=== PATIENT | female | born 1980 | race Caucasian/White ===

== ENCOUNTER 2019-05-17 12:12 | Emergency (ER) | payer MEDICARE, MEDICAID ==
[~2019-05-17] VITALS: Ht 165.1 cm; Wt 86.0 kg
--- NOTE | 2019-05-17 12:30 | NUR ---
Pt taken from triage to room 22 by Adela Baugh.
[2019-05-17] MEDS ORDERED: IBUP-1986 PO (13:10)
[2019-05-17] MEDS ORDERED: TRAM50TA2 PO (13:10)
--- NOTE | 2019-05-17 13:23 | NUR ---
LAB AT . PT TALKING WITH MOM AT
[2019-05-17 13:35] LABS: BASOPHILS % (AUTO) 0.5 % (0-1); EOSINOPHILS % (AUTO) 0.6 % (0-6); HEMATOCRIT 41.8 % (35.0-45.0); HEMOGLOBIN 13.9 g/dl (12.0-16.0); LYMPHOCYTES # (AUTO) 1.6 X10'3 (1.1-4.8); LYMPHOCYTES % (AUTO) 19.3 % (21-51); MEAN CORPUSCULAR HEMOGLOBIN 30.8 PG (27.0-31.0); MEAN CORPUSCULAR HGB CONC 33.3 g/dL (33.0-36.5); MEAN CORPUSCULAR VOLUME 92.4 FL (78-98); MEAN PLATELET VOLUME 9.3 FL (7.4-10.4); MONOCYTES # (AUTO) 0.6 X10'3 (0-0.9); MONOCYTES % (AUTO) 7.3 % (2-12); NEUTROPHILS % (AUTO) 72.3 % (42-75); PLATELET COUNT 243 X10'3 (140-440); RED BLOOD COUNT 4.52 X10'6 (4.20-5.60); RED CELL DISTRIBUTION WIDTH 14.7 % (11.5-14.5); WHITE BLOOD COUNT 8.2 X10'3 (4.5-11.0)
[2019-05-17 13:39] LABS: CLARITY,URINE SLIGHTLY CLOUDY (Clear); COLOR,URINE STRAW (Yellow); GLUCOSE, URINE NEGATIVE (Neg); KETONES,URINE NEGATIVE (Neg); LEUKOCYTE ESTERASE ,URINE TRACE (Neg); NITRITES, URINE NEGATIVE (Neg); OCCULT BLOOD,URINE NEGATIVE (Neg); PROTEIN,URINE NEGATIVE (Neg); URINE HCG NEGATIVE (NEG); UROBILINOGEN,URINE 0.2 E.U/dL (0.2-1.0)
[2019-05-17 13:40] LABS: UA COLLECTION TYPE CLN CATCH MIDSTREAM
[2019-05-17 13:43] LABS: URINE AMPHETAMINE SCREEN NEGATIVE (Neg); URINE BARBITUATE SCREEN NEGATIVE (Neg); URINE BENZODIAZEPINES SCREEN NEGATIVE (Neg); URINE CANNABINOID SCREEN NEGATIVE (Neg); URINE COCAINE SCREEN NEGATIVE (Neg); URINE METHADONE SCREEN NEGATIVE (Neg); URINE OPIATE SCREEN NEGATIVE (Neg); URINE PHENCYCLIDINE SCREEN NEGATIVE (Neg)
[2019-05-17 13:50] LABS: ALANINE AMINOTRANSFERASE 14 U/L (12-78); ALBUMIN 3.8 G/DL (3.4-5.0); ALBUMIN/GLOBULIN RATIO 1.1 (1.1-1.5); ALKALINE PHOSPHATASE 78 IU/L (46-116); ANION GAP 9 (8-16); ASPARTATE AMINO TRANSFERASE 4 U/L (10-37); BILIRUBIN,TOTAL 0.2 MG/DL (0.1-1.0); BLOOD UREA NITROGEN 11 MG/DL (7-18); BUN/CREATININE RATIO 10.9 (6.6-38.0); CALCIUM 9.1 MG/DL (8.5-10.1); CHLORIDE 109 MMOL/L (99-107); CREATININE 1.01 MG/DL (0.40-0.90); GLUCOSE 91 MG/DL (70-104); POTASSIUM 3.7 MMOL/L (3.5-5.1); SODIUM 141 MMOL/L (135-145); TOTAL CARBON DIOXIDE 23.4 MMOL/L (24-32); TOTAL PROTEIN 7.3 G/DL (6.4-8.2); eGFR 61 ML/MIN
[2019-05-17 13:54] LABS: SQUAMOUS EPITHELIAL CELL,UR MANY /LPF (FEW)
[2019-05-17 13:55] LABS: BACTERIA,URINE 2+ /HPF (Neg); RBC,URINE 0-2 /HPF (0-2); WBC,URINE 0-4 /HPF (0-4)
[2019-05-17 13:59] LABS: ACETAMINOPHEN < 2.0 UG/ML (10-30); ETHANOL < 0.010 GM/DL (0.0-0.010)
[2019-05-17] MEDS ORDERED: RISP4TAB2 PO (14:00)
[2019-05-17] MEDS ORDERED: VENL150T3 PO (14:02)
[2019-05-17] MEDS ORDERED: TOP100T PO (14:02)
[2019-05-17] MEDS ORDERED: BENZ0.5T43 PO (14:05)
[2019-05-17] MEDS ORDERED: OMEP40CA13 PO (14:05)
[2019-05-17] MEDS ORDERED: MIRT30TA PO (14:05)
[2019-05-17] MEDS ORDERED: [UNRECOGNIZED DRUG - CODE] (14:07)
[2019-05-17] MEDS ORDERED: CLON-527 PO (14:07)
[2019-05-17] MEDS ORDERED: nicotine 21mg patch - 24 hr TD ONE (15:30)
--- NOTE | 2019-05-17 16:45 | NUR ---
Report received from EHSAN Kate. All questions answered. I agree with previously documented assessment. Patient resting comfortably in bed. I will assume care of patient at this time.
--- NOTE | 2019-05-17 18:30 | NUR ---
rcvd report from EHSAN Patterson, assumed care, pt is in bed supine, mother at bedside, no s/s of distress observed
--- NOTE | 2019-05-17 19:30 | NUR ---
pt is in bed, supine, mom still at bedside, no s/s of distress observed, will continue to monitor
--- NOTE | 2019-05-17 19:49 | NUR ---
spoke to Angi [facility], went over chart and pt hx with her she will visit pt in a few mins
--- NOTE | 2019-05-17 19:50 | NUR ---
spoke to ANÍBAL Salas re med clearance, she will request from
--- NOTE | 2019-05-17 20:30 | NUR ---
updated on wait for eval from [facility]
[2019-05-17] MEDS ORDERED: mirtazapine 15mg tablet PO SCH (21:00)
[2019-05-17] MEDS ORDERED: risperiDONE 2mg tablet PO SCH (21:00)
[2019-05-17] MEDS ORDERED: traMADol 50MG tablet PO ONE (21:00)
[2019-05-17] MEDS ORDERED: TASIMELTEON 20 MG PO SCH (21:00)
--- NOTE | 2019-05-17 21:00 | NUR ---
Christina from [facility] speaking to pt and her mother, no s/s of distress observed
--- NOTE | 2019-05-17 21:29 | NUR ---
pt still quietly talking to Christina from [facility], Mom present
--- NOTE | 2019-05-17 21:40 | NUR ---
spoke to herminia, she is going to keep the pt on 1798. has plans to dc pt home in the am, the patient continues to hear voices, they are getting louder, they are not telling her to do anything at this time, she does still want to harm herself
[2019-05-17] MEDS: topiramate 100mg tablet PO SCH (21:47)
[2019-05-17] MEDS: clonazePAM 1mg tablet PO SCH (21:47)
[2019-05-17] MEDS: benztropine 1mg tablet PO SCH (21:47)
--- NOTE | 2019-05-17 22:30 | NUR ---
pt is in bed, supine, no s/s of distress, regular breathing present, appears ti b Addendum: 05/18/19 at 0108 by [email or web address] appears to be sleeping
--- NOTE | 2019-05-17 22:33 | NUR ---
pt is sleeping
--- NOTE | 2019-05-17 23:34 | NUR ---
pt is asleep, regular, spontaneous breathing present
--- NOTE | 2019-05-18 01:40 | NUR ---
pt is in bed, supine, no s/s of distress observed
--- NOTE | 2019-05-18 02:32 | NUR ---
pt is in bed. reqular breathing present, no s/s of distress observed
--- NOTE | 2019-05-18 03:01 | NUR ---
pt is in bed on right side, eyes closed, no s/s of distress will continue to monitor
--- NOTE | 2019-05-18 04:00 | NUR ---
pt eating she is calm and happy no s/s of distress
--- NOTE | 2019-05-18 05:02 | NUR ---
pt is in bed on her right side, eyes closed , no s/s of distress
[2019-05-18 05:07] VITALS: BP 94/66
--- NOTE | 2019-05-18 05:49 | NUR ---
pt is in bed on right side, no s/s of distress, eyes closed appears to be asleep
[2019-05-18] MEDS ORDERED: pantoprazole 40mg Tablet.DR PO SCH (07:30)
[2019-05-18] MEDS ORDERED: venlafaxine XR 75mg capsule (Q24H) PO SCH (08:00)
[2019-05-18] MEDS: clonazePAM 1mg tablet PO SCH (08:18)
[2019-05-18] MEDS: benztropine 1mg tablet PO SCH (08:18)
[2019-05-18] MEDS: topiramate 100mg tablet PO SCH (08:22)
[2019-05-18] MEDS ORDERED: traMADol 50MG tablet PO PRN (09:15)
== END 2019-05-18 12:11 | disposition home or self-care (01) ==
LOC: ER 12:13
DX: R45.851 Suicidal ideations (principal); F41.9 Anxiety disorder, unspecified; F32.9 Major depressive disorder, single episode, unspecified; F20.9 Schizophrenia, unspecified; F17.200 Nicotine dependence, unspecified, uncomplicated; Z98.890 Other specified postprocedural states; Z88.5 Allergy status to narcotic agent; Z88.8 Allergy status to other drugs, medicaments and biological substances; Z79.899 Other long term (current) drug therapy
CPT/HCPCS: 36415; 80053; 80305; 80320; 80329; 81001; 81025; 84443; 85025; 99284; 99285

== ENCOUNTER 2019-05-23 12:01 | Emergency (ER) | payer MEDICARE, MEDICAID ==
[~2019-05-23] VITALS: Ht 165.1 cm; Wt 85.9 kg
[~2019-05-23 12:01] MED LIST: BENZ0.5T43 PO; CLON-527 PO; IBUP-1986 PO; MIRT30TA PO; OMEP40CA13 PO; RISP4TAB2 PO; TOP100T PO; TRAM50TA2 PO; VENL150T3 PO; [UNRECOGNIZED DRUG - CODE]
[2019-05-23 12:37] LABS: URINE HCG NEGATIVE (NEG)
[2019-05-23 12:38] LABS: BASOPHILS # (AUTO) 0.1 X10'3 (0-0.2); BASOPHILS % (AUTO) 0.7 % (0-1); EOSINOPHILS % (AUTO) 0.5 % (0-6); HEMATOCRIT 44.3 % (35.0-45.0); HEMOGLOBIN 14.6 g/dl (12.0-16.0); LYMPHOCYTES # (AUTO) 1.3 X10'3 (1.1-4.8); LYMPHOCYTES % (AUTO) 15.3 % (21-51); MEAN CORPUSCULAR HEMOGLOBIN 30.3 PG (27.0-31.0); MEAN CORPUSCULAR HGB CONC 32.9 g/dL (33.0-36.5); MEAN CORPUSCULAR VOLUME 92.3 FL (78-98); MEAN PLATELET VOLUME 9.3 FL (7.4-10.4); MONOCYTES # (AUTO) 0.5 X10'3 (0-0.9); MONOCYTES % (AUTO) 5.3 % (2-12); NEUTROPHILS # (AUTO) 6.8 X10'3 (1.8-7.7); NEUTROPHILS % (AUTO) 78.2 % (42-75); PLATELET COUNT 248 X10'3 (140-440); RED CELL DISTRIBUTION WIDTH 14.5 % (11.5-14.5); WHITE BLOOD COUNT 8.7 X10'3 (4.5-11.0)
[2019-05-23 12:43] LABS: URINE AMPHETAMINE SCREEN NEGATIVE (Neg); URINE BARBITUATE SCREEN NEGATIVE (Neg); URINE BENZODIAZEPINES SCREEN NEGATIVE (Neg); URINE CANNABINOID SCREEN NEGATIVE (Neg); URINE COCAINE SCREEN NEGATIVE (Neg); URINE METHADONE SCREEN NEGATIVE (Neg); URINE OPIATE SCREEN NEGATIVE (Neg); URINE PHENCYCLIDINE SCREEN NEGATIVE (Neg)
[2019-05-23 12:47] LABS: ANION GAP 11 (8-16); BLOOD UREA NITROGEN 10 MG/DL (7-18); BUN/CREATININE RATIO 9.8 (6.6-38.0); CHLORIDE 107 MMOL/L (99-107); CREATININE 1.02 MG/DL (0.40-0.90); GLUCOSE 92 MG/DL (70-104); POTASSIUM 3.7 MMOL/L (3.5-5.1); SODIUM 142 MMOL/L (135-145); TOTAL CARBON DIOXIDE 24.1 MMOL/L (24-32)
[2019-05-23 12:48] LABS: ALANINE AMINOTRANSFERASE 17 U/L (12-78); ALBUMIN 4.1 G/DL (3.4-5.0); ALBUMIN/GLOBULIN RATIO 1.2 (1.1-1.5); ALKALINE PHOSPHATASE 87 IU/L (46-116); ASPARTATE AMINO TRANSFERASE 10 U/L (10-37); BILIRUBIN,TOTAL 0.3 MG/DL (0.1-1.0); ETHANOL < 0.010 GM/DL (0.0-0.010); TOTAL PROTEIN 7.6 G/DL (6.4-8.2); eGFR 60 ML/MIN
--- NOTE | 2019-05-23 13:12 | NUR ---
assumed care of pt, pt amb with steady gait from [facility] waiting room to overflow
--- NOTE | 2019-05-23 13:32 | NUR ---
pt is 38 yo female BIB mother from home, pt c/o "voices telling me to kill myself...to shoot myself", mother said there are guns in the house "but no shells and they are in the closet in my room and the door is locked", pt is calm and cooperative, resp even and unlabored, skin p/w/d, sees Lillie Wing, therapist, twice a week and Dr Melendez is the psychiatrist from [facility]. Pt denies homicidal thoughts/plan. Mother said pt has been crying nonstop today, pt was here last overnight and dc'd home the next day
--- NOTE | 2019-05-23 13:51 | NUR ---
gave pt sandwich, yogurt, blessing crackers and pitcher of ice water, mother is at bedside, packet has been faxed to [facility], called to confirm they have received packet, pt is waiting to be evaluated by clinician
--- NOTE | 2019-05-23 13:56 | NUR ---
pt amb with steady gait to restroom
--- NOTE | 2019-05-23 14:07 | NUR ---
Clinician bj burton at bedside to evaluate pt
--- NOTE | 2019-05-23 14:37 | NUR ---
pt placed on 5150, waiting for placement, med rec done,
[2019-05-23] MEDS ORDERED: FURO-150 PO (15:09)
[2019-05-23] MEDS ORDERED: POTA10TA15 PO (15:09)
[2019-05-23] MEDS ORDERED: clonazePAM 1mg tablet PO PRN (15:10)
[2019-05-23] MEDS ORDERED: traMADol 50MG tablet PO PRN (15:10)
--- NOTE | 2019-05-23 15:10 | NUR ---
Assumed care of this patient from EHSAN Ortega.. Patient resting with mother at bedside. no signs of distress. patient affect calm, answering questions appropriately.
[2019-05-23] MEDS ORDERED: FURO40TA4 PO (15:32)
[2019-05-23] MEDS ORDERED: ibuprofen tablet 400 MG TABLET PO PRN (16:00)
--- NOTE | 2019-05-23 16:16 | NUR ---
Patient's mom Elza left her number and states she would like us to call if Estela is transferred. number is [phone].
--- NOTE | 2019-05-23 18:30 | NUR ---
Patient awake sitting in bed, no behavior problem noted.
[2019-05-23] MEDS ORDERED: topiramate 100mg tablet PO SCH (20:00)
[2019-05-23] MEDS ORDERED: benztropine 1mg tablet PO SCH (20:00)
--- NOTE | 2019-05-23 20:01 | NUR ---
Patient up to the bathroom for toilet needs.
[2019-05-23] MEDS ORDERED: mirtazapine 15mg tablet PO SCH (21:00)
[2019-05-23] MEDS ORDERED: risperiDONE 2mg tablet PO SCH (21:00)
--- NOTE | 2019-05-23 21:20 | NUR ---
Patient resting in bed at this time.
[2019-05-23 22:42] VITALS: BP 103/73
[2019-05-24] MEDS ORDERED: venlafaxine XR 75mg capsule (Q24H) PO SCH (08:00)
[2019-05-24] MEDS ORDERED: pantoprazole 40mg Tablet.DR PO SCH (08:00)
== END 2019-05-23 22:47 | disposition home or self-care (01) ==
LOC: ER 12:01
DX: F32.9 Major depressive disorder, single episode, unspecified (principal); F41.9 Anxiety disorder, unspecified; F20.9 Schizophrenia, unspecified; Z87.891 Personal history of nicotine dependence; Z88.5 Allergy status to narcotic agent; Z88.8 Allergy status to other drugs, medicaments and biological substances; Z79.899 Other long term (current) drug therapy
CPT/HCPCS: 36415; 80053; 80305; 80320; 81025; 85025; 99284

== ENCOUNTER 2019-05-23 22:22 | Inpatient (IN) | payer MEDICARE, MEDICAID ==
[~2019-05-23] VITALS: Ht 165.1 cm; Wt 85.6 kg
[~2019-05-23 22:22] MED LIST changes: +FURO-150 PO; +FURO40TA4 PO; +POTA10TA15 PO
[2019-05-23] MEDS ORDERED: hydrOXYzine 25 MG tablet PO PRN (22:30)
[2019-05-23] MEDS ORDERED: magnesium hydroxide 30ml (MOM) UD suspension PO PRN (22:30)
[2019-05-23] MEDS ORDERED: LORazepam 1 MG tablet PO PRN (22:30)
[2019-05-23] MEDS ORDERED: acetaminophen 325mg tablet PO PRN ×2 (22:30)
[2019-05-23] MEDS ORDERED: mag hydrox/Alum hydrox/simeth 30ml oral suspension PO PRN (22:30)
[2019-05-23] MEDS ORDERED: loperamide 2mg capsule PO PRN (22:30)
[2019-05-23 23:43] VITALS: BP 99/69
[2019-05-23] MEDS ORDERED: NICOTINE POLACRILEX 2 MG LOZENGE BC PRN (23:45)
--- NOTE | 2019-05-24 02:17 | NUR ---
ADMISSION NOTE: 38 year old female that self presented to ER due to suicidal thoughts with plan to "blow my head off with a gun", and per 5150 report she does have access to firearms. Pt reports that "David (the voice in her head) has taken over and she cannot take it anymore, pt endorses command hallucinations that tell her to do things as well. She arrived on the unit at 2245 from ER overflow, escorted by Nabil MEYER, pt was ambulatory, she was escorted to the showers for safety check and skin check that was completed by myself and Leah MOSER. Pt cooperative with admission process. Pt lives with Mother and teenage son in [place]. 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 DR Melendez currently manages her psych meds. Pt has had previous psych admit but states it has been years. Denies any previous suicide attempts and she states she does not currently feel suicidal.
[2019-05-24] MEDS: traMADol 50MG tablet PO PRN ×2 (06:11→13:56)
[2019-05-24 07:57] LABS: HEMOGLOBIN A1C 5.1 % (4.5-6.2)
[2019-05-24 08:00] VITALS: BP 104/80
[2019-05-24 08:06] LABS: CHOL/HDL RATIO 2.2 (0.00-4.99); CHOLESTEROL 140 MG/DL (0-200); HDL CHOLESTEROL 64 MG/DL (35-60); LDL CHOLESTEROL 49 MG/DL (50-100); TRIGLYCERIDES 81 MG/DL (20-135)
[2019-05-24] MEDS: nicotine 7mg patch - 24hr TD SCH (08:43)
[2019-05-24] MEDS: benztropine 1mg tablet PO SCH ×2 (08:45→20:43)
[2019-05-24] MEDS: venlafaxine XR 75mg capsule (Q24H) PO SCH (08:45)
[2019-05-24] MEDS: potassium chloride 10mEq ER tablet PO SCH (08:45)
[2019-05-24] MEDS: pantoprazole 40mg Tablet.DR PO SCH (08:45)
[2019-05-24] MEDS: ibuprofen tablet 400 MG TABLET PO SCH ×2 (08:45→16:14)
[2019-05-24] MEDS: topiramate 100mg tablet PO SCH ×2 (08:46→20:44)
[2019-05-24] MEDS: furosemide 40mg tablet PO SCH (08:46)
[2019-05-24] MEDS: clonazePAM 1mg tablet PO PRN (12:58)
--- NOTE | 2019-05-24 14:22 | NUR ---
Malnutrition consult re: 17 lb wt loss d/t depression. Current documented wt is stable with only documented wt hx of 86 kg taken 05/18/19. Pt currently on a regular diet with 100% PO intake meeting nutrient needs. No edema or decrease in muscle strength. Pt currently lacks a minimum of two criteria for malnutrition. Will continue to follow. Addendum: 05/24/19 at [address] Amended: Links added.
--- NOTE | 2019-05-24 14:23 | NUR ---
Progress notes: Estela Cavazos Pt lives with Mother and teenage son in [place]. 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 DR Melendez currently manages her psych meds. Pt has had previous psych admit but states it has been years. Denies any previous suicide attempts and she states she does not currently feel suicidal. Legal Hold: 5150 as DTS Report received from: Leticia SPANGLER Why they are here: What happened this shift: Client was in bed to start the shift, Client admits to hearing voices and the name of her voice is, "David". She states that voice is a command hallucination which tells her to harm herself. Also, voice attempts to control her thoughts by telling her, "do not take medications". Took a prn of Klonopin around 1350 hours for, "agitation". Client attended group activities and was compliant with all aspects of her care. S/I H/I: denies ADLS: conducts by self Group attendance: yes Were meds taken: yes Any S/e noted: no Mental status exam: Appearance: neat, appropriate Eye contact: direct Behavior: appropriate, internally preoccupied. Speech: m normal, soft Mood: Depressed Affect: flat Thought process: linear Thought content: Cognition: Insight: Fair Judgement: Fair Interventions: Prn use: Klonopin Therapeutic Interventions: Continued therapeutic support and medication management needed to provide stabilization. 1:1 assessment with patient, provide active listening and therapeutic milieu. Justification of Continued Inpatient Treatment: Pt. unable to formulate a viable plan for food, fci and clothing. Currently she is reporting S/I. Continued therapeutic support and medication management needed to provide stabilization, prevent decompensation, improve coping mechanisms decreasing risk to patient and re-admittance Restraints/seclusion/emergency medication: N/A
[2019-05-24 20:00] VITALS: BP 108/72
[2019-05-24] MEDS: mirtazapine 15mg tablet PO SCH (20:45)
[2019-05-24] MEDS: TASIMELTEON 20 MG PO SCH (21:00)
[2019-05-24] MEDS ORDERED: mirtazapine 15mg tablet PO SCH (21:00)
[2019-05-24] MEDS: risperiDONE 2mg tablet PO SCH (21:35)
--- NOTE | 2019-05-25 02:47 | NUR ---
NURSING PROGRESS NOTE: Legal Hold: 5150 as DTS Report received from ANÍBAL Kelly via [facility] Why they are here: Pt lives with Mother and teenage son in [place]. 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 DR Melendez currently manages her psych meds. Pt has had previous psych admit but states it has been years. Denies any previous suicide attempts and she states she does not currently feel suicidal. What happened this shift: C Pt in room at start and for the entirety of the shift. She used the phone a couple times to call family. Pt continues to have vaque SI and hallucinations but is reserved about talking about either. AH lessened by headphones (music) and reading. While she enjoys groups, pt states thd voice makes it difficult to communicate in the group setting. Pt is cooperative with care, and retired to sleep shortly after medications administration. Initially refusing certain medications per the direction of her AH, but was able to be redirected and took all medications. S/I H/I: + SI, no plan A/V H: + AH, Command: Voice is "David" who makes derogatory comments and tells her to kill herself or not take her meds ADLS: Independent Group attendance: N/A Were meds taken:Yes Any S/e noted: none reported nor observed Mental status exam: Appearance: Neat, appropriate. Hair is loose, wearing unit green scrubs and nonskid socks. Eye contact: Direct Behavior: Isolated to room Speech: Normal rate, soft tone Mood: Depressed 8/10 Affect: Flat Thought process: Linear, blocking due to internal stimuli Thought content: Voices Cognition: Insight: Fair Judgement: Fair Interventions: PRN use: None Therapeutic Interventions: Continued therapeutic support and medication management needed to provide stabilization. 1:1 assessment with patient, provide active listening and therapeutic milieu. Restraints/seclusion/emergency medication: N/A Justification of Continued Inpatient Treatment: Currently she is reporting S/I and command hallucinations. Continued therapeutic support and medication management needed to provide stabilization, prevent decompensation, improve coping mechanisms decreasing risk to patient and re-admittance.
[2019-05-25] MEDS: nicotine 7mg patch - 24hr TD SCH (07:43)
[2019-05-25] MEDS: furosemide 40mg tablet PO SCH (07:43)
[2019-05-25] MEDS: ibuprofen tablet 400 MG TABLET PO SCH ×3 (07:43→15:23)
[2019-05-25] MEDS: topiramate 100mg tablet PO SCH ×2 (07:43→21:09)
[2019-05-25] MEDS: venlafaxine XR 75mg capsule (Q24H) PO SCH (07:43)
[2019-05-25] MEDS: potassium chloride 10mEq ER tablet PO SCH (07:43)
[2019-05-25] MEDS: pantoprazole 40mg Tablet.DR PO SCH (07:44)
[2019-05-25] MEDS: benztropine 1mg tablet PO SCH ×2 (07:44→21:09)
[2019-05-25] MEDS: traMADol 50MG tablet PO PRN ×2 (07:52→16:08)
[2019-05-25 08:00] VITALS: BP 113/74
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
[2019-05-25] MEDS: clonazePAM 1mg tablet PO PRN (15:23)
[2019-05-25 19:58] VITALS: BP 109/81
[2019-05-25] MEDS: TASIMELTEON 20 MG PO SCH (21:00)
[2019-05-25] MEDS: mirtazapine 15mg tablet PO SCH (21:08)
[2019-05-25] MEDS: risperiDONE 2mg tablet PO SCH (21:08)
--- NOTE | 2019-05-26 02:27 | NUR ---
NURSING PROGRESS NOTE: Legal Hold: 5150 as DTS Report received from ANÍBAL Kelly via [facility] Why they are here: Pt lives with Mother and teenage son in [place]. 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 DR Melendez currently manages her psych meds. Pt has had previous psych admit but states it has been years. Denies any previous suicide attempts and she states she does not currently feel suicidal. What happened this shift: Pt in room majority of shift, talking on the phone to her family. Later before bed, pt was enjoying a movie in the TV room. Pt states she is feeling worse today because the voice is stronger. Depression and anxiety are rated 8/10, and the voice continues to make derogatory and command statements. RN and pt explored the topic of ECT as treatment, as it was brought up with the psychiatrist today. Pt states she is not resistive to this intervention, just wanting to keep trying talk therapy before approaching a more invasive line of treatment. Pt compliant with medications and retired to bed shortly after administration. S/I H/I: + SI, no plan A/V H: + AH, Command: Voice is "David" who makes derogatory comments and tells her to kill herself ADLS: Independent Group attendance: N/A Were meds taken:Yes Any S/e noted: none reported nor observed Mental status exam: Appearance: Neat, appropriate. Hair is loose, wearing unit green scrubs and nonskid socks. Eye contact: Direct Behavior: Talking on the phone, watching a movie Speech: Normal rate, soft tone Mood: Depressed and Anxious 8/10 Affect: Flat Thought process: Linear, blocking due to internal stimuli Thought content: Voices Cognition: Insight: Fair Judgement: Fair Interventions: PRN use: MOM Therapeutic Interventions: Continued therapeutic support and medication management needed to provide stabilization. 1:1 assessment with patient, provide active listening and therapeutic milieu. Restraints/seclusion/emergency medication: N/A Justification of Continued Inpatient Treatment: Currently she is reporting S/I and command hallucinations. Continued therapeutic support and medication management needed to provide stabilization, prevent decompensation, improve coping mechanisms decreasing risk to patient and re-admittance.
[2019-05-26] MEDS: traMADol 50MG tablet PO PRN ×2 (06:04→15:35)
[2019-05-26] MEDS: potassium chloride 10mEq ER tablet PO SCH (07:17)
[2019-05-26] MEDS: furosemide 40mg tablet PO SCH (07:17)
[2019-05-26] MEDS: topiramate 100mg tablet PO SCH ×2 (07:17→20:50)
[2019-05-26] MEDS: venlafaxine XR 75mg capsule (Q24H) PO SCH (07:17)
[2019-05-26] MEDS: benztropine 1mg tablet PO SCH ×2 (07:17→20:52)
[2019-05-26] MEDS: pantoprazole 40mg Tablet.DR PO SCH (07:17)
[2019-05-26 07:32] VITALS: BP 91/55
[2019-05-26] MEDS: nicotine 7mg patch - 24hr TD SCH (08:52)
[2019-05-26] MEDS: ibuprofen tablet 400 MG TABLET PO SCH ×3 (08:55→15:35)
--- NOTE | 2019-05-26 17:52 | NUR ---
NURSING PROGRESS NOTE: Legal Hold: 5150 as DTS Report received from ANÍBAL Kelly via [facility] Why they are here: Pt lives with Mother and teenage son in [place]. 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 DR Melendez currently manages her psych meds. Pt has had previous psych admit but states it has been years. Denies any previous suicide attempts and she states she does not currently feel suicidal. What happened this shift: Pt is seen ambulating in the lagos at change of shift. She states that she is having some pain in her lower back that is chronic and currently sharp. She reports that she recently had a PRN Tramadol and she is walking to try and relieve some of her pain. She also is seen before breakfast talking on the phone. She is pleasant and cooperative with all care and takes her medications without incident. Depression and anxiety are rated 5/10, and the voice continues to make derogatory and command statements and call her names. She had a male visitor and was seen smiling and visiting with him in the community room. This RN received a phone call from Pt's mother who reports that the patient's own medication, Tasimelteon, is in the pharmacy to be given at 2100. Called down to the pharmacy and confirmed this. Pharmacy states that they will bring it up and store it in the omnicell for PM administration. She denies any HI, VH, she does report that she is still hearing AH and command hallucinations. She reports that "David", the voice she hears tells her to kill herself still, but she is trying to ignore him. S/I H/I: + SI, no plan A/V H: + AH, Command: Voice is "David" who makes derogatory comments and tells her to kill herself ADLS: Independent Group attendance: yes Were meds taken:Yes Any S/e noted: none reported nor observed Estela Mental status exam: Appearance: Neat, appropriate. Hair is loose, wearing unit green scrubs and nonskid socks. Eye contact: Direct Behavior: Talking on the phone, some isolation and resting throughout the day Speech: Normal rate, soft tone Mood: Depressed and Anxious 8/10 Affect: Flat Thought process: Linear, blocking due to internal stimuli Thought content: Voices Cognition: Insight: Fair Judgement: Fair Interventions: rest, socialization PRN use: Tramadol x2 Therapeutic Interventions: Continued therapeutic support and medication management needed to provide stabilization. 1:1 assessment with patient, provide active listening and therapeutic milieu. Restraints/seclusion/emergency medication: N/A Justification of Continued Inpatient Treatment: Currently she is reporting S/I and command hallucinations. Continued therapeutic support and medication management needed to provide stabilization, prevent decompensation, improve coping mechanisms decreasing risk to patient and re-admittance.
[2019-05-26] MEDS: clonazePAM 1mg tablet PO PRN (19:27)
[2019-05-26 19:57] VITALS: BP 101/73
[2019-05-26] MEDS: mirtazapine 15mg tablet PO SCH (20:50)
[2019-05-26] MEDS: risperiDONE 2mg tablet PO SCH (20:51)
[2019-05-26] MEDS: TASIMELTEON 20 MG PO SCH (20:52)
--- NOTE | 2019-05-26 23:26 | NUR ---
NURSING PROGRESS NOTE: Legal Hold: 5150 Report received from ANÍBAL Kelly Why they are here: Pt lives with Mother and teenage son in [place]. 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 DR Melendez currently manages her psych meds. Pt has had previous psych admit but states it has been years. Denies any previous suicide attempts and she states she does not currently feel suicidal. What happened this shift: Pt talking on the phone with family most of the shift. Pt concerned the voices will never go away because medications have little effect currently. States the voice is no longer commanding she commit suicide, but continues to be negative saying she is unworthy, stupid, and will end up in an institution. Pt had a visitor today which made her feel a little better, but now the voice is telling her she is not worth that person's time. Pt requested PRN Klonopin to help alleviate anxiety brought on by AH. Pt is journaling and writing questions, thoughts down for when she meets with the psychiatrist. "I don't want to forget something and the voice makes it hard to concentrate". Pt compliant with medications and retired to bed shortly after administration. S/I H/I: Denies A/V H: + AH, Command: Voice is "David" who makes derogatory comments ADLS: Independent Group attendance: N/A Were meds taken:Yes Any S/e noted: none reported nor observed Mental status exam: Appearance: Clean, street clothes, hair brushed and wearing makeup. Eye contact: Intermittent Behavior: Talking on the phone, walking the halls Speech: Normal rate, soft tone Mood: Depressed 6/10 and Anxious 8/10 Affect: Flat with occasional brightening Thought process: Linear, blocking due to internal stimuli Thought content: worried no treatment will ever work, need to discuss ect with provider Cognition: A&Ox4 Insight: Fair Judgement: Fair Interventions: PRN use: Klonopin Therapeutic Interventions: Continued therapeutic support and medication management needed to provide stabilization. 1:1 assessment with patient, provide active listening and therapeutic milieu. Restraints/seclusion/emergency medication: N/A Justification of Continued Inpatient Treatment: Currently she is reporting depression and anxiety r/t command hallucinations. Continued therapeutic support and medication management needed to provide stabilization, prevent decompensation, improve coping mechanisms decreasing risk to patient and re-admittance.
[2019-05-27] MEDS: traMADol 50MG tablet PO PRN ×2 (06:53→15:26)
[2019-05-27] MEDS: venlafaxine XR 75mg capsule (Q24H) PO SCH (07:35)
[2019-05-27] MEDS: benztropine 1mg tablet PO SCH ×2 (07:36→21:19)
[2019-05-27] MEDS: topiramate 100mg tablet PO SCH ×2 (07:37→21:20)
[2019-05-27] MEDS: potassium chloride 10mEq ER tablet PO SCH (07:37)
[2019-05-27] MEDS: pantoprazole 40mg Tablet.DR PO SCH (07:37)
[2019-05-27] MEDS: ibuprofen tablet 400 MG TABLET PO SCH ×3 (07:38→16:31)
[2019-05-27 08:00] VITALS: BP 93/63
[2019-05-27] MEDS: nicotine 7mg patch - 24hr TD SCH (08:00)
[2019-05-27] MEDS: furosemide 40mg tablet PO SCH (11:10)
[2019-05-27] MEDS: clonazePAM 1mg tablet PO PRN (15:26)
--- NOTE | 2019-05-27 17:45 | NUR ---
NURSING PROGRESS NOTE: Legal Hold: 5150 Report received from ANÍBAL Augustine Why they are here: Pt lives with Mother and teenage son in [place]. 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 DR Melendez currently manages her psych meds. Pt has had previous psych admit but states it has been years. Denies any previous suicide attempts and she states she does not currently feel suicidal. What happened this shift: Pt. awake at start of shift. Pt. requesting Ultram for 7/10 back pain. 1:1 assessment done at bedside. Pt. appears depressed and reports 7/10 depression and 5/10 anxiety. Pt. reports that she is unsure of what her anxiety is about. Pt. reports she has not heard voices in a while, when RN asked the last time pt. heard voices states, "Just a few minutes ago". Pt. denies SI/HI. Pt. attended groups. Pt. requested prn for anxiety and pain in afternoon, pt. recieved klonopin and ultram. Pt. reports she is having a hard time with her voices which are telling her negative things like, "you will never see your friends again, and you will never shopping". Pt. states, "I've had these voices for 10 years and I don't know what to do. The medications are not working". S/I H/I: Denies A/V H: + AH that tell her things like, "You'll never see your friends again and you will never go shopping". ADLS: Independent Group attendance: Yes Were meds taken:Yes Any S/e noted: none reported nor observed Mental status exam: Appearance: Clean, street clothes, hair brushed and wearing makeup. Eye contact: Intermittent Behavior: Talking on the phone, walking the halls Speech: Normal rate, soft tone Mood: Depressed 7/10 and Anxious 5/10 Affect: Flat with occasional brightening Thought process: thought blocking due to internal stimuli Thought content: worried no treatment will ever work Cognition: A&Ox4 Insight: Fair Judgement: Fair Interventions: PRN use: Klonopin and Ultram Therapeutic Interventions: Continued therapeutic support and medication management needed to provide stabilization. 1:1 assessment with patient, provide active listening and therapeutic milieu. Restraints/seclusion/emergency medication: N/A Justification of Continued Inpatient Treatment: Currently she is reporting depression and anxiety r/t command hallucinations. Continued therapeutic support and medication management needed to provide stabilization, prevent decompensation, improve coping mechanisms decreasing risk to patient and re-admittance.
[2019-05-27 19:57] VITALS: BP 108/75
[2019-05-27] MEDS: mirtazapine 15mg tablet PO SCH (21:19)
[2019-05-27] MEDS: risperiDONE 2mg tablet PO SCH (21:19)
[2019-05-27] MEDS: TASIMELTEON 20 MG PO SCH (21:20)
--- NOTE | 2019-05-27 23:54 | NUR ---
NURSING PROGRESS NOTE: Legal Hold: VOL Report received from ANÍBAL Kelly Why they are here: Pt lives with Mother and teenage son in [place]. 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 DR Melendez currently manages her psych meds. Pt has had previous psych admit but states it has been years. Denies any previous suicide attempts and she states she does not currently feel suicidal. What happened this shift: Pt states she is doing a little better today than yesterday but depression and anxiety remain high. Pt states her emotional state a intensity of the voice undulate throughout the day; she feels a bit better and voice is slightly less if she has been talking to her mom or friend. However, the friend is also a focus for the voice to make negative comments about the pt's character and worthlessness. Pt continues to journal to help cope with symptoms and also writes down questions to present to the MD. Pt stated she discussed ECT "a little bit with the doctor today but I am still scared and don't want to do it." RN and pt discussed middle ground of initial consultation appointment for ECT while other therapies are being utilized; pt can continue to learn about the treatment and cancel the appointment if she deems it is not for her but at least she would not prolong treatment should she decide this method is a good fit. Pt verbalized she will discuss this with the MD further. Pt retired shortly after taking medications and talking to her mom on the phone. S/I H/I: Denies A/V H: + AH, Command: Voice is "David" who makes derogatory comments ADLS: Independent Group attendance: N/A Were meds taken:Yes Any S/e noted: None reported nor observed Mental status exam: Appearance: Clean, unit scrubs, hair brushed and wearing makeup Eye contact: Direct Behavior: Talking on the phone, Journaling in room Speech: Normal rate, soft tone Mood: Depressed 5/10 and Anxious 5/10 Affect: Flat with occasional brightening Thought process: Linear, blocking due to internal stimuli Thought content: worried no treatment will ever work, afraid of ect Cognition: A&Ox4 Insight: Fair Judgement: Fair Interventions: PRN use: None Therapeutic Interventions: Continued therapeutic support and medication management needed to provide stabilization. 1:1 assessment with patient, provide active listening and therapeutic milieu. Restraints/seclusion/emergency medication: N/A Justification of Continued Inpatient Treatment: Currently she is reporting depression and anxiety r/t command hallucinations. Continued therapeutic support and medication management needed to provide stabilization, prevent decompensation, improve coping mechanisms decreasing risk to patient and re-admittance.
[2019-05-28] MEDS: traMADol 50MG tablet PO PRN ×2 (05:22→14:03)
[2019-05-28 08:00] VITALS: BP 99/66
[2019-05-28] MEDS: nicotine 7mg patch - 24hr TD SCH (08:00)
[2019-05-28] MEDS: ibuprofen tablet 400 MG TABLET PO SCH ×3 (08:00→16:00)
[2019-05-28] MEDS: pantoprazole 40mg Tablet.DR PO SCH (08:16)
[2019-05-28] MEDS: furosemide 40mg tablet PO SCH (08:16)
[2019-05-28] MEDS: topiramate 100mg tablet PO SCH ×2 (08:16→20:51)
[2019-05-28] MEDS: benztropine 1mg tablet PO SCH ×2 (08:16→20:51)
[2019-05-28] MEDS: potassium chloride 10mEq ER tablet PO SCH (08:16)
[2019-05-28] MEDS: venlafaxine XR 75mg capsule (Q24H) PO SCH (08:16)
--- NOTE | 2019-05-28 13:54 | NUR ---
Initial: Appetite is ok, eating about 75% average overall meeting needs. LBM two days ago, patient may be constipated. Noted received milk of magnesia on 05/25. If No BM today may benefit from additional bowel care. Recommend: 1. continue regular diet 2. Pt may benefit from additional bowel care, no BM in two days and LBM was small 3. Weekly wts Addendum: 05/28/19 at [address] Amended: Links added.
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
[2019-05-28 20:00] VITALS: BP 102/69
[2019-05-28] MEDS: mirtazapine 15mg tablet PO SCH (20:51)
[2019-05-28] MEDS: risperiDONE 2mg tablet PO SCH (20:52)
[2019-05-28] MEDS: TASIMELTEON 20 MG PO SCH (20:53)
--- NOTE | 2019-05-29 02:34 | NUR ---
NURSING PROGRESS NOTE: Legal Hold: VOL Report received from ANÍBAL Kelly Why they are here: Pt lives with Mother and teenage son in [place]. 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 DR Melendez currently manages her psych meds. Pt has had previous psych admit but states it has been years. Denies any previous suicide attempts and she states she does not currently feel suicidal. What happened this shift: Received pt after she had been on a phone conversation with her friend; depression and anxiety are alleviated when pt interacts with this person, however the voice will undercut the situation and attack the pts character after each interaction, making threats that she will end up in an institution and that she doesn't deserve that friend. RN reassured pt that she is worthy of a friend, and that the journey to healing is rarely a straight path. Pt discussed ideas presetned in her meeting with the MD; namely that a 'medication holiday' was proposed as well as brain spotting-- pt is very open to these ideas especially since she wished ECT to be the last approach. Pt remains hopeless that there is a treatment that will work to cure the voice but is willing to participate in care. Pt medication compliant, although the voice tells her to refuse the Tramadol. However, Pt will proceed to take all medications. Pt went to sleep shortly after administration of HS meds and a journaling session. S/I H/I: Denies A/V H: + AH, Command: Voice is "David" who makes derogatory comments stating she is stupid, unworthy, and will end up in an institution ADLS: Independent Group attendance: N/A Were meds taken:Yes Any S/e noted: None reported nor observed Mental status exam: Appearance: Clean, unit scrubs, hair brushed and wearing makeup Eye contact: Direct Behavior: Talking on the phone, Journaling in room Speech: Normal rate, soft tone Mood: Depressed 3/10 and Anxious 3/10 Affect: Flat with occasional brightening Thought process: Linear Thought content: novel approaches presented in meeting with MD, worried about readmission Cognition: A&Ox4 Insight: Fair Judgement: Fair Interventions: PRN use: Ultram Therapeutic Interventions: Continued therapeutic support and medication management needed to provide stabilization. 1:1 assessment with patient, provide active listening and therapeutic milieu. Restraints/seclusion/emergency medication: N/A Justification of Continued Inpatient Treatment: Currently she is reporting depression and anxiety r/t command hallucinations. Continued therapeutic support and medication management needed to provide stabilization, prevent decompensation, improve coping mechanisms decreasing risk to patient and re-admittance.
[2019-05-29] MEDS: traMADol 50MG tablet PO PRN ×2 (06:22→16:30)
[2019-05-29 07:44] VITALS: BP 125/83
[2019-05-29] MEDS: pantoprazole 40mg Tablet.DR PO SCH (08:38)
[2019-05-29] MEDS: venlafaxine XR 75mg capsule (Q24H) PO SCH (08:38)
[2019-05-29] MEDS: potassium chloride 10mEq ER tablet PO SCH (08:38)
[2019-05-29] MEDS: benztropine 1mg tablet PO SCH ×2 (08:39→20:57)
[2019-05-29] MEDS: furosemide 40mg tablet PO SCH (08:39)
[2019-05-29] MEDS: ibuprofen tablet 400 MG TABLET PO SCH ×3 (08:40→16:27)
[2019-05-29] MEDS: topiramate 100mg tablet PO SCH ×2 (08:40→20:57)
--- NOTE | 2019-05-29 12:20 | NUR ---
Follow up: no significant BM yet, d/w RN that patient may benefit from additional bowel care. Addendum: 05/29/19 at [address] Amended: Links added.
--- NOTE | 2019-05-29 17:26 | NUR ---
NURSING PROGRESS NOTE: Legal Hold: 5150 as DTS Report received from ANÍBAL Kelly via [facility] Why they are here: Pt lives with Mother and teenage son in [place]. 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 DR Melendez currently manages her psych meds. Pt has had previous psych admit but states it has been years. Denies any previous suicide attempts and she states she does not currently feel suicidal. What happened this shift: Received Pt asleep in bed w/o distress at change of shift. Pt awoke for adls and breakfast. She is pleasant and cooperative and engages in conversation. Discussed her desires around managing medications and using the ones that are effective and getting rid of others. Attended groups and used headphones on unit. C/O back pain and received Tramadol PRN in afternoon along with rest, with good effect. Has mild anxiety r/t recent new sx of AH and is glad to be receiving help. S/I H/I: + SI, no plan A/V H: + AH, Command: Voice is "David" who makes derogatory comments and tells her to kill herself ADLS: Independent Group attendance: yes Were meds taken:Yes Any S/e noted: none reported nor observed Mental status exam: Appearance: Neat, appropriate. Hair is loose, wearing unit green scrubs and nonskid socks. Eye contact: Direct Behavior: Talking on the phone, some isolation and resting throughout the day Speech: Normal rate, soft tone Mood: Depressed and Anxious 7/10 Affect: Flat Thought process: Linear Thought content: Voices Cognition: Insight: Fair Judgement: Fair Interventions: rest, socialization PRN use: Tramadol Therapeutic Interventions: Continued therapeutic support and medication management needed to provide stabilization. 1:1 assessment with patient, provide active listening and therapeutic milieu. Restraints/seclusion/emergency medication: N/A Justification of Continued Inpatient Treatment: Currently she is reporting S/I and command hallucinations. Continued therapeutic support and medication management needed to provide stabilization, prevent decompensation, improve coping mechanisms decreasing risk to patient and re-admitta
[2019-05-29] MEDS: clonazePAM 1mg tablet PO PRN (18:57)
[2019-05-29 20:07] VITALS: BP 113/69
[2019-05-29] MEDS: mirtazapine 15mg tablet PO SCH (20:57)
[2019-05-29] MEDS: risperiDONE 2mg tablet PO SCH (20:58)
[2019-05-29] MEDS: TASIMELTEON 20 MG PO SCH (20:58)
--- NOTE | 2019-05-29 23:13 | NUR ---
NURSING PROGRESS NOTE: Legal Hold: VOL Report received from ANÍBAL Kelly Why they are here: Pt lives with Mother and teenage son in [place]. 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 DR Melendez currently manages her psych meds. Pt has had previous psych admit but states it has been years. Denies any previous suicide attempts and she states she does not currently feel suicidal. What happened this shift: Patient is in her room Journaling at change of shift. She requests some Klonopin at this time stating she is very anxious and upset due to "David" her voice being extremely negative and loud. Klonopin is obtained and given to patient at this time. Patient talks about her voice "David" stating he is always negative and always there, that he is never quiet. She reports that she used to have other voices until "David showed up and closed the doors on all the other voices." She said this happened about a year and a half ago, and she is unsure as to why this happened. She requests a medication list this evening which is provided and she is educated on her current medications and current medication changes. She is complaint with all her evening medications and goes to bed after asking for some green scrubs to sleep in. S/I H/I: Denies A/V H: + AH, Command: Voice is "David" who makes derogatory comments stating she is stupid, unworthy. ADLS: Independent Group attendance: N/A Were meds taken:Yes Any S/e noted: None reported nor observed Mental status exam: Appearance: Clean, unit scrubs, hair brushed and wearing makeup Eye contact: Direct Behavior: Talking on the phone, Journaling in room Speech: Normal rate, soft tone Mood: Anxious Affect: Flat with occasional brightening Thought process: Linear Thought content: Medication changes, and current education on the medications she is taking Cognition: A&Ox4 Insight: Fair Judgement: Fair Interventions: PRN use: Klonopin Therapeutic Interventions: Continued therapeutic support and medication management needed to provide stabilization. 1:1 assessment with patient, provide active listening and therapeutic milieu. Restraints/seclusion/emergency medication: N/A Justification of Continued Inpatient Treatment: Currently she is reporting depression and anxiety r/t command hallucinations. Continued therapeutic support and medication management needed to provide stabilization, prevent decompensation, improve coping mechanisms decreasing risk to patient and re-admittance.
[2019-05-30] MEDS: pantoprazole 40mg Tablet.DR PO SCH (06:41)
[2019-05-30] MEDS: traMADol 50MG tablet PO PRN ×2 (06:42→13:24)
[2019-05-30] MEDS: ibuprofen tablet 400 MG TABLET PO SCH ×3 (07:29→17:30)
[2019-05-30] MEDS: benztropine 1mg tablet PO SCH ×2 (07:30→20:34)
[2019-05-30] MEDS: potassium chloride 10mEq ER tablet PO SCH (07:30)
[2019-05-30] MEDS: furosemide 40mg tablet PO SCH (07:30)
[2019-05-30] MEDS: topiramate 100mg tablet PO SCH ×2 (07:30→20:34)
[2019-05-30] MEDS: venlafaxine XR 75mg capsule (Q24H) PO SCH (07:30)
[2019-05-30 08:00] VITALS: BP 107/74
--- NOTE | 2019-05-30 12:26 | NUR ---
Insole Department Worker 1:1 The undersigned social work case manager met individually with pt. per request from the treatment team. Pt. self reports a score of 3 on the RANDI questionnaire. Explored any other past traumas and pt reports feeling disconnected from her emotions since age 33. Offered some psycho ed on trauma trainings that are available. Plan= collaborate with treatment team and continue to offer support for pt. Ruma Shultz Licensed Marriage and Family Therapist
--- NOTE | 2019-05-30 15:16 | NUR ---
NURSING PROGRESS NOTE: Legal Hold: VOL Report received from ANÍBAL Kelly w/use of [employer] Why they are here: Pt lives with Mother and teenage son in [place]. 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 DR Melendez currently manages her psych meds. Pt has had previous psych admit but states it has been years. Denies any previous suicide attempts and she states she does not currently feel suicidal. What happened this shift: Patient sitting on the side of the bed looking out of her window at change of shift. During am assessment pt c/o pain 7/10 Ultram given as prescribed. Pt describes A/H of a voice, singel voice, named "David." She states, "I use to hear many voices this one is the only one I still hear and have only heard him for about one and a half years. He calls me names." Pt continued to describe a derogatory voice that she is responding too throughput the day. S/I H/I: Denies A/V H: + AH ADLS: Independent Group attendance: x2 Were Meds taken: Yes Any S/e noted: None reported nor observed Mental status exam: Appearance: Clean, wearing her own clothing Eye contact: Direct Behavior: Spends her time journaling in her room Speech: Normal rate, soft tone Mood: appears anxious Affect: Flat Thought process: Linear Thought content: Medication changes, and current education on the medications she is taking Cognition: A&Ox4 Insight: Fair Judgement: Fair Interventions: PRN use: N/A Therapeutic Interventions: 1:1 assessment, therapeutic communication with active listening, medication administration/education/monitoring, encouraged groups, monitoring provided q 15min for safety. Restraints/seclusion/emergency medication: N/A Justification of Continued Inpatient Treatment: Currently she is reporting depression and anxiety r/t command hallucinations. Continued therapeutic support and medication management needed to provide stabilization, prevent decompensation, improve coping mechanisms decreasing risk to patient and re-admittance.
[2019-05-30 20:15] VITALS: BP 104/70
[2019-05-30] MEDS: mirtazapine 15mg tablet PO SCH (20:34)
[2019-05-30] MEDS: risperiDONE 2mg tablet PO SCH (20:34)
[2019-05-30] MEDS: TASIMELTEON 20 MG PO SCH (20:36)
--- NOTE | 2019-05-31 01:33 | NUR ---
NURSING PROGRESS NOTE: Legal Hold: VOL Report received from EHSAN Cobian Why they are here: Pt lives with Mother and teenage son in [place]. 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 DR Melendez currently manages her psych meds. Pt has had previous psych admit but states it has been years. Denies any previous suicide attempts and she states she does not currently feel suicidal. What happened this shift: Patient is on the phone at change of shift in her room. After her phone call she is agreeable to an assessment at her bedside. She reports still feeling depressed, and confirms still hearing "David's" voice all day and states he has been saying "The same things." She reports no change in this voice since admission. Patient confirms back pain of 4/10 and states that this is a manageable pain for her, she requests no pain medication this evening for it. She is compliant with HS medications and requests clean scrubs to change into before turning to bed. S/I H/I: Denies A/V H: + AH, Command: Voice is "David" who makes derogatory comments ADLS: Independent Group attendance: N/A Were meds taken:Yes Any S/e noted: None reported nor observed Mental status exam: Appearance: Clean, wearing street clothes, hair brushed and wearing makeup Eye contact: Direct Behavior: Talking on the phone, Journaling in room Speech: Normal rate, soft tone Mood: Anxious, depressed Affect: Flat with occasional brightening Thought process: Linear Thought content: Medication changes, wants to go home. Cognition: A&Ox4 Insight: Fair Judgement: Fair Interventions: PRN use: None Therapeutic Interventions: Continued therapeutic support and medication management needed to provide stabilization. 1:1 assessment with patient, provide active listening and therapeutic milieu. Restraints/seclusion/emergency medication: N/A Justification of Continued Inpatient Treatment: Currently she is reporting depression and anxiety r/t command hallucinations. Continued therapeutic support and medication management needed to provide stabilization, prevent decompensation, improve coping mechanisms decreasing risk to patient and re-admittance.
[2019-05-31] MEDS: traMADol 50MG tablet PO PRN ×2 (05:00→15:18)
[2019-05-31 07:54] VITALS: BP 122/85
[2019-05-31] MEDS: ibuprofen tablet 400 MG TABLET PO SCH ×3 (08:25→17:41)
[2019-05-31] MEDS: venlafaxine XR 75mg capsule (Q24H) PO SCH (08:25)
[2019-05-31] MEDS: benztropine 1mg tablet PO SCH ×2 (08:26→20:31)
[2019-05-31] MEDS: pantoprazole 40mg Tablet.DR PO SCH (08:26)
[2019-05-31] MEDS: furosemide 40mg tablet PO SCH (08:26)
[2019-05-31] MEDS: potassium chloride 10mEq ER tablet PO SCH (08:26)
[2019-05-31] MEDS: topiramate 100mg tablet PO SCH ×2 (08:26→20:31)
[2019-05-31] MEDS: clonazePAM 1mg tablet PO PRN (15:17)
--- NOTE | 2019-05-31 17:02 | NUR ---
NURSING PROGRESS NOTE: Legal Hold: VOL Report received from ANÍBAL Kelly w/use of [facility] Why they are here: Pt lives with Mother and teenage son in [place]. 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 DR Melendez currently manages her psych meds. Pt has had previous psych admit but states it has been years. Denies any previous suicide attempts and she states she does not currently feel suicidal. What happened this shift: Pt visible on the unit dressed in appropriately in nice street clothes. Pt affect is flat and pt fairly apathetic. Pt denies depression and suicidal thoughts. She does endorse anxiety and did receive PRN klonopin upon request today. Pt states she continues to hear the voice of David. She says it commands her to do things, but not unsafe things. Things like, take a shower or brush your teeth. Pt did attend groups today and meals and engaged in minimal interaction with peers. S/I H/I: Denies A/V H: + AH ADLS: Independent Group attendance: x2 Were Meds taken: Yes Any S/e noted: None reported nor observed Mental status exam: Appearance: Clean, wearing her own clothing Eye contact: Direct Behavior: Spends her time journaling in her room Speech: Normal rate, soft tone Mood: appears anxious Affect: Flat Thought process: Linear Thought content: Medication changes, and current education on the medications she is taking Cognition: A&Ox4 Insight: Fair Judgement: Fair Interventions: PRN use: klonopin, ultram Therapeutic Interventions: 1:1 assessment, therapeutic communication with active listening, medication administration/education/monitoring, encouraged groups, monitoring provided q 15min for safety. Restraints/seclusion/emergency medication: N/A Justification of Continued Inpatient Treatment: Currently she is reporting depression and anxiety r/t command hallucinations. Continued therapeutic support and medication management needed to provide stabilization, prevent decompensation, improve coping mechanisms decreasing risk to patient and re-admittance.
[2019-05-31 20:17] VITALS: BP 110/72
[2019-05-31] MEDS: mirtazapine 15mg tablet PO SCH (20:31)
[2019-05-31] MEDS: risperiDONE 2mg tablet PO SCH (20:31)
[2019-05-31] MEDS: TASIMELTEON 20 MG PO SCH (20:32)
--- NOTE | 2019-06-01 04:13 | NUR ---
NURSING PROGRESS NOTE: Legal Hold: VOL Report received from EHSAN Sprague Why they are here: Pt lives with Mother and teenage son in [place]. 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 DR Melendez currently manages her psych meds. Pt has had previous psych admit but states it has been years. Denies any previous suicide attempts and she states she does not currently feel suicidal. What happened this shift: Patient is sitting in the recreation room at change of shift looking at the window. She agrees to a 1:1 assessment at her bedside. She Denies SI/HI/VH this shift and confirms AH still wit the same voice of "David". Patient requests medication information which is provided to her. She talks about her want to go home, and her titration of Risperdal to stop it. She is compliant with HS medications and goes to bed shortly after medication administration. S/I H/I: Denies A/V H: + AH, Command: Voice is "David" who makes derogatory comments ADLS: Independent Group attendance: N/A Were meds taken:Yes Any S/e noted: None reported nor observed Mental status exam: Appearance: Clean, wearing street clothes, hair brushed and wearing makeup Eye contact: Direct Behavior: Talking on the phone, Journaling in room Speech: Normal rate, soft tone Mood: Anxious, depressed Affect: Flat with occasional brightening Thought process: Linear Thought content: Medication changes, wants to go home. Cognition: A&Ox4 Insight: Fair Judgement: Fair Interventions: PRN use: None Therapeutic Interventions: Continued therapeutic support and medication management needed to provide stabilization. 1:1 assessment with patient, provide active listening and therapeutic milieu. Restraints/seclusion/emergency medication: N/A Justification of Continued Inpatient Treatment: Currently she is reporting depression and anxiety r/t command hallucinations. Continued therapeutic support and medication management needed to provide stabilization, prevent decompensation, improve coping mechanisms decreasing risk to patient and re-admittance.
[2019-06-01] MEDS: topiramate 100mg tablet PO SCH ×2 (07:31→20:52)
[2019-06-01] MEDS: furosemide 40mg tablet PO SCH (07:31)
[2019-06-01] MEDS: pantoprazole 40mg Tablet.DR PO SCH (07:31)
[2019-06-01] MEDS: potassium chloride 10mEq ER tablet PO SCH (07:31)
[2019-06-01] MEDS: ibuprofen tablet 400 MG TABLET PO SCH ×3 (07:32→17:24)
[2019-06-01] MEDS: traMADol 50MG tablet PO PRN ×2 (07:32→15:33)
[2019-06-01] MEDS: venlafaxine XR 75mg capsule (Q24H) PO SCH (07:32)
[2019-06-01] MEDS: benztropine 1mg tablet PO SCH ×2 (07:32→20:52)
[2019-06-01 08:00] VITALS: BP 112/68
[2019-06-01] MEDS: clonazePAM 1mg tablet PO PRN (09:14)
--- NOTE | 2019-06-01 14:37 | NUR ---
NURSING PROGRESS NOTE: Legal Hold: VOL Report received from Barbara Burton RN Why they are here: Pt lives with Mother and teenage son in [place]. 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 DR Melendez currently manages her psych meds. Pt has had previous psych admit but states it has been years. Denies any previous suicide attempts and she states she does not currently feel suicidal. What happened this shift: Pt admits to ongoing AH but denies CAH. Pt is still depressed but denies SI. Pt stated that she is homesick and just wants to go home. Pt feels her medications can be titrated at home. S/I H/I: Pt denies A/VH: +AH, denies VH ADLS: Independent Group attendance: yes Were meds taken:Yes Any S/e noted: None reported or observed Mental status exam: Appearance: Clean, wearing street clothes, hair brushed, wears makeup Eye contact: good Behavior: Pleasant, cooperative Speech: clear, audible, normal rate and rhythm Mood: Anxious, depressed Affect: blunted Thought process: Linear Thought content: Ready to go home Cognition: A/O X 4 Insight: Fair to good Judgement: Fair to good Interventions: PRN use: Ultram 100 mg @ 0732, Klonopin 2 mg @ 0914 Therapeutic Interventions: 1:1 assessment, therapeutic conversation, medication administration/monitoring/education, Q 15 min checks. Restraints/seclusion/emergency medication: N/A Justification of Continued Inpatient Treatment: Continued therapeutic support and medication adjustment needed to provide stabilization, prevent decompensation, improve coping mechanisms decreasing risk to patient and re-admittance.
[2019-06-01 19:00] VITALS: BP 108/72
[2019-06-01] MEDS: TASIMELTEON 20 MG PO SCH (20:52)
[2019-06-01] MEDS: mirtazapine 15mg tablet PO SCH (20:52)
[2019-06-01] MEDS ORDERED: risperiDONE 0.5mg tablet PO SCH (21:00)
--- NOTE | 2019-06-02 02:22 | NUR ---
NURSING PROGRESS NOTE: Legal Hold: VOL Report received from EHSAN Sprague Why they are here: Pt lives with Mother and teenage son in [place]. 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 DR Melendez currently manages her psych meds. Pt has had previous psych admit but states it has been years. Denies any previous suicide attempts and she states she does not currently feel suicidal. What happened this shift: Patient is sitting in her room at change of shift journaling. She spends most of her time on the unit in her room on the phone or journaling this evening. She reports depression and AH. MOCA test is performed this evening per Drs order. Patient score a 24/30 on her MOCA. She is compliant with HS medications and requests green scrubs to sleep in before going to bed. S/I H/I: Denies A/V H: + AH, Command: Voice is "David" who makes derogatory comments ADLS: Independent Group attendance: N/A Were meds taken:Yes Any S/e noted: None reported nor observed Mental status exam: Appearance: Clean, wearing street clothes, hair brushed and wearing makeup Eye contact: Direct Behavior: Talking on the phone, Journaling in room Speech: Normal rate, soft tone Mood: Anxious, depressed Affect: Flat with occasional brightening Thought process: Linear Thought content: Medication changes, wants to go home. Cognition: A&Ox4 Insight: Fair Judgement: Fair Interventions: PRN use: None Therapeutic Interventions: Continued therapeutic support and medication management needed to provide stabilization. 1:1 assessment with patient, provide active listening and therapeutic milieu. Restraints/seclusion/emergency medication: N/A Justification of Continued Inpatient Treatment: Currently she is reporting depression and anxiety r/t command hallucinations. Continued therapeutic support and medication management needed to provide stabilization, prevent decompensation, improve coping mechanisms decreasing risk to patient and re-admittance.
[2019-06-02] MEDS: traMADol 50MG tablet PO PRN ×2 (05:15→20:23)
[2019-06-02] MEDS: venlafaxine XR 75mg capsule (Q24H) PO SCH (07:43)
[2019-06-02] MEDS: pantoprazole 40mg Tablet.DR PO SCH (07:43)
[2019-06-02] MEDS: ibuprofen tablet 400 MG TABLET PO SCH ×3 (07:45→16:08)
[2019-06-02] MEDS: topiramate 100mg tablet PO SCH ×2 (07:45→20:19)
[2019-06-02] MEDS: furosemide 40mg tablet PO SCH (07:45)
[2019-06-02] MEDS: potassium chloride 10mEq ER tablet PO SCH (07:45)
[2019-06-02] MEDS: benztropine 1mg tablet PO SCH ×2 (07:45→20:14)
[2019-06-02 08:00] VITALS: BP 101/69
--- NOTE | 2019-06-02 12:56 | NUR ---
Reassessment: Pt with fluctuating PO intake however overall 75-100% meeting nutrient needs. Wt stable. LBM 06/01 documented as moderate in size. Will continue to follow. Recommend: 1. continue regular diet 2. Pt may benefit from additional bowel care 3. Weekly wts Addendum: 06/02/19 at [address] Amended: Links added.
[2019-06-02] MEDS: clonazePAM 1mg tablet PO PRN (14:37)
--- NOTE | 2019-06-02 14:51 | NUR ---
NURSING PROGRESS NOTE: Estela Legal Hold: VOL Report received from EHSAN Barber Why they are here: Pt lives with Mother and teenage son in [place]. 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 Dr. Melendez currently manages her psych meds. Pt has had previous psych admit but states it has been years. Denies any previous suicide attempts and she states she does not currently feel suicidal. What happened this shift: Patient was awake sitting on her bed at change of shift. She states she is looking forward to discharge. Rates her depression 3/10 denies SI. States she hears voices but they are quieter and can easily be distracted. Rates pain at 3/10. During med pass, patient observed putting on makeup and was dressed well in personal clothing. Patient was observed multiple times on the phone. Has remained calm, cooperative. C/O increasing anxiety related to the constant voice in her head, medicated with clonazepam. S/I H/I: Denies A/V H: Command voices ADLS: Independent Group attendance: yes Were meds taken:Yes Any S/e noted: None reported nor observed Mental status exam: Appearance: Clean, wearing street clothes, hair brushed and wearing makeup Eye contact: Direct Behavior: quiet, respectful, isolating Speech: Normal rate, soft tone Mood: Anxious, depressed Affect: Flat with occasional brightening Thought process: Linear Thought content: Medication changes, wants to go home. Cognition: A&Ox4 Insight: Fair Judgement: Fair Interventions: PRN use: Clonazepam Therapeutic Interventions: Continued therapeutic support and medication management needed to provide stabilization. 1:1 assessment with patient, provide active listening and therapeutic milieu. Restraints/seclusion/emergency medication: N/A Justification of Continued Inpatient Treatment: Currently she is reporting depression and anxiety r/t command hallucinations. Continued therapeutic support and medication management needed to provide stabilization, prevent decompensation, improve coping mechanisms decreasing risk to patient and re-admittance.
[2019-06-02 20:00] VITALS: BP 108/58
[2019-06-02] MEDS: mirtazapine 15mg tablet PO SCH (20:17)
[2019-06-02] MEDS: risperiDONE 0.5mg tablet PO SCH (20:18)
[2019-06-02] MEDS: TASIMELTEON 20 MG PO SCH (20:18)
--- NOTE | 2019-06-02 22:11 | NUR ---
NURSING PROGRESS NOTE: Estela Legal Hold: VOL Report received from EHSAN Sprague Why they are here: Pt lives with Mother and teenage son in [place]. 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 Dr. Melendez currently manages her psych meds. Pt has had previous psych admit but states it has been years. Denies any previous suicide attempts and she states she does not currently feel suicidal. What happened this shift: Patient was awake in bed at change of shift. She states she is feeling better this shift . Rates her depression 3/10 denies SI. States she hears voices but they are quieter and can easily be distracted. Rates pain at 3/10. During med pass, patient walking in the [place] and was dressed well in personal clothing. Patient was observed multiple times on the phone. Has remained calm, cooperative. C/O increasing anxiety related to the constant voice in her head. S/I H/I: Denies A/V H: Command voices ADLS: Independent Group attendance: yes Were meds taken:Yes Any S/e noted: None reported nor observed Mental status exam: Appearance: Clean, wearing street clothes, hair brushed and wearing makeup Eye contact: Direct Behavior: quiet, respectful, isolating Speech: Normal rate, soft tone Mood: Anxious, depressed Affect: Flat with occasional brightening Thought process: Linear Thought content: Medication changes, wants to go home. Cognition: A&Ox4 Insight: Fair Judgement: Fair Interventions: PRN use: Clonazepam Therapeutic Interventions: Continued therapeutic support and medication management needed to provide stabilization. 1:1 assessment with patient, provide active listening and therapeutic milieu. Restraints/seclusion/emergency medication: N/A Justification of Continued Inpatient Treatment: Currently she is reporting depression and anxiety r/t command hallucinations. Continued therapeutic support and medication management needed to provide stabilization, prevent decompensation, improve coping mechanisms decreasing risk to patient and re-admittance.
[2019-06-03] MEDS: traMADol 50MG tablet PO PRN ×3 (04:36→21:07)
[2019-06-03 07:30] VITALS: BP 103/64
[2019-06-03] MEDS: ibuprofen tablet 400 MG TABLET PO SCH ×3 (07:45→16:46)
[2019-06-03] MEDS: pantoprazole 40mg Tablet.DR PO SCH (07:46)
[2019-06-03] MEDS: venlafaxine XR 75mg capsule (Q24H) PO SCH (07:46)
[2019-06-03] MEDS: benztropine 1mg tablet PO SCH ×2 (07:46→20:42)
[2019-06-03] MEDS: furosemide 40mg tablet PO SCH (07:46)
[2019-06-03] MEDS: topiramate 100mg tablet PO SCH ×2 (07:46→20:42)
[2019-06-03] MEDS: potassium chloride 10mEq ER tablet PO SCH (07:46)
--- NOTE | 2019-06-03 15:03 | NUR ---
NURSING PROGRESS NOTE: Estela Legal Hold: VOL Report received from ANÍBAL Barber with use of SBAR Why they are here: Pt lives with Mother and teenage son in [place]. 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 Dr. Melendez currently manages her psych meds. Pt has had previous psych admit but states it has been years. Denies any previous suicide attempts and she states she does not currently feel suicidal. What happened this shift: Patient was up and showered by change of shift. She is nicely dressed with hair neatly combed and makeup applied. Discussed her possible discharge today which she was unaware of. Admits she is still hearing voices directing her to leave her current significant other but states I am not listening. Soft music was playing in the community room and patient stated she enjoys music because it is one thing that can drown out the voices. Met with provider and determined she may be ready for DC in a couple of days. S/I H/I: Denies A/V H: Command voices ADLS: Independent Group attendance: yes Were meds taken:Yes Any S/e noted: None reported nor observed Mental status exam: Appearance: Clean, wearing street clothes, hair brushed and wearing makeup Eye contact: Direct Behavior: quiet, respectful, isolating Speech: Normal rate, soft tone Mood: Anxious, depressed Affect: Flat with occasional brightening Thought process: Linear Thought content: Medication changes, wants to go home. Cognition: A&Ox4 Insight: Fair to good Judgment: good Interventions: PRN use: Ultram Therapeutic Interventions: Continued therapeutic support and medication management needed to provide stabilization. 1:1 assessment with patient, provide active listening and therapeutic milieu. Restraints/seclusion/emergency medication: N/A Justification of Continued Inpatient Treatment: Currently she is reporting depression and anxiety r/t command hallucinations. Continued therapeutic support and medication management needed to provide stabilization, prevent decompensation, improve coping mechanisms decreasing risk to patient and re-admittance.
[2019-06-03] MEDS: clonazePAM 1mg tablet PO PRN (19:10)
[2019-06-03 19:53] VITALS: BP 98/63
[2019-06-03] MEDS: risperiDONE 0.5mg tablet PO SCH (20:42)
[2019-06-03] MEDS: mirtazapine 15mg tablet PO SCH (20:43)
[2019-06-03] MEDS: TASIMELTEON 20 MG PO SCH (20:44)
--- NOTE | 2019-06-03 22:32 | NUR ---
NURSING PROGRESS NOTE: Estela Legal Hold: VOL Report received from ANÍBAL Sprague with use of SBAR Why they are here: Pt lives with Mother and teenage son in [place]. 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 Dr. Melendez currently manages her psych meds. Pt has had previous psych admit but states it has been years. Denies any previous suicide attempts and she states she does not currently feel suicidal. What happened this shift: Patient was up in group room this shift. She is nicely dressed with hair neatly combed and makeup applied. Admits she is still hearing voices directing her to leave her current significant other but states I am not listening. Soft music was playing in the community room and patient stated she enjoys music because it is one thing that can drown out the voices. Pt is med compliant S/I H/I: Denies A/V H: Command voices ADLS: Independent Group attendance: yes Were meds taken:Yes Any S/e noted: None reported nor observed Mental status exam: Appearance: Clean, wearing street clothes, hair brushed and wearing makeup Eye contact: Direct Behavior: quiet, respectful, isolating Speech: Normal rate, soft tone Mood: Anxious, depressed Affect: Flat with occasional brightening Thought process: Linear Thought content: Medication changes, wants to go home. Cognition: A&Ox4 Insight: Fair to good Judgment: good Interventions: PRN use: Ultram Therapeutic Interventions: Continued therapeutic support and medication management needed to provide stabilization. 1:1 assessment with patient, provide active listening and therapeutic milieu. Restraints/seclusion/emergency medication: N/A Justification of Continued Inpatient Treatment: Currently she is reporting depression and anxiety r/t command hallucinations. Continued therapeutic support and medication management needed to provide stabilization, prevent decompensation, improve coping mechanisms decreasing risk to patient and re-admittance.
[2019-06-04] MEDS: traMADol 50MG tablet PO PRN ×3 (04:14→20:43)
[2019-06-04] MEDS: benztropine 1mg tablet PO SCH ×2 (07:39→20:44)
[2019-06-04] MEDS: topiramate 100mg tablet PO SCH ×2 (07:39→20:44)
[2019-06-04] MEDS: pantoprazole 40mg Tablet.DR PO SCH (07:39)
[2019-06-04] MEDS: ibuprofen tablet 400 MG TABLET PO SCH ×3 (07:39→17:41)
[2019-06-04] MEDS: furosemide 40mg tablet PO SCH (07:39)
[2019-06-04] MEDS: venlafaxine XR 75mg capsule (Q24H) PO SCH (07:39)
[2019-06-04] MEDS: potassium chloride 10mEq ER tablet PO SCH (07:39)
[2019-06-04 08:13] VITALS: BP 116/74
--- NOTE | 2019-06-04 14:03 | NUR ---
Social work 1:1 The undersigned clinician met individually with pt. per request from treatment team. Intervention = attuned empathic listening using biolateral sound. Pt. reports feeling sadness, anger, frustration, and fear. Pt. maintained a flat affect and reports a reduction in the fear felt in her chest and stomach from a 5 to a 0. Plan= continue to collaborate with treatment team and support pt. Ruma HENSLEY
--- NOTE | 2019-06-04 17:39 | NUR ---
NURSING PROGRESS NOTE: Legal Hold: VOL Report received from ANÍBAL Barber with use of SBAR Why they are here: Pt lives with Mother and teenage son in [place]. 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 Dr. Melendez currently manages her psych meds. Pt has had previous psych admit but states it has been years. Denies any previous suicide attempts and she states she does not currently feel suicidal. What happened this shift: Pt received awake in bed. Pt stated pain woke her up this morning early. Pt affect remains flat. Pt stated the voices "David" were bad again yesterday, but that they had actually gotten better for the first time since they began about ten years ago. Pt went for MRI and stated "it is nice to get outside, even just for a minute". Pt cooperative with procedure. Pt does appear apathetic, but pt did attend groups. Pt also met with [facility] activity therapist. S/I H/I: Denies A/V H: Command voices ADLS: Independent Group attendance: yes Were meds taken:Yes Any S/e noted: None reported nor observed Mental status exam: Appearance: Clean, wearing street clothes, hair brushed and wearing makeup Eye contact: Direct Behavior: quiet, respectful, isolating Speech: Normal rate, soft tone Mood: Anxious, depressed Affect: Flat with occasional brightening Thought process: Linear Thought content: Medication changes, wants to go home. Cognition: A&Ox4 Insight: Fair to good Judgment: good Interventions: PRN use: Ultram Therapeutic Interventions: Continued therapeutic support and medication management needed to provide stabilization. 1:1 assessment with patient, provide active listening and therapeutic milieu. Restraints/seclusion/emergency medication: N/A Justification of Continued Inpatient Treatment: Currently she is reporting depression and anxiety r/t command hallucinations. Continued therapeutic support and medication management needed to provide stabilization, prevent decompensation, improve coping mechanisms decreasing risk to patient and re-admittance.
[2019-06-04 20:00] VITALS: BP 100/68
[2019-06-04] MEDS: TASIMELTEON 20 MG PO SCH (20:43)
[2019-06-04] MEDS: mirtazapine 15mg tablet PO SCH (20:44)
[2019-06-04] MEDS: risperiDONE 0.5mg tablet PO SCH (20:44)
[2019-06-05] MEDS: traMADol 50MG tablet PO PRN ×3 (03:13→15:07)
[2019-06-05] MEDS: ibuprofen tablet 400 MG TABLET PO SCH ×3 (03:20→16:55)
[2019-06-05] MEDS: furosemide 40mg tablet PO SCH (07:36)
[2019-06-05] MEDS: benztropine 1mg tablet PO SCH ×2 (07:36→20:39)
[2019-06-05] MEDS: venlafaxine XR 75mg capsule (Q24H) PO SCH (07:36)
[2019-06-05] MEDS: potassium chloride 10mEq ER tablet PO SCH (07:37)
[2019-06-05] MEDS: topiramate 100mg tablet PO SCH ×2 (07:37→20:39)
[2019-06-05] MEDS: pantoprazole 40mg Tablet.DR PO SCH (07:37)
[2019-06-05 07:51] VITALS: BP 107/77
--- NOTE | 2019-06-05 16:50 | NUR ---
Nursing Progress Note: Legal hold: 5150 expiring this afternoon will be [address] Amaro Client on involuntary status for DTS/GD SBAR from ANÍBAL Kang Why are they here: Pt has history of schizophrenia and bipolar. [facility] PT states she has not been taking her medications. Pt presents as depressed, confused, disoriented, suicidal, experiencing audio, visual hallucinations. Client was in the ER for DM and brought back in by local mental health clinic. Client endorses suicidal ideation Family reports pt is not taking her medications as prescribed. Unable to formulate a safety plan. Assessment What has happened this shift: Pt up and visible on the unit today. Pt stated she did not have a comfortable night sleep and requested feminine pads and said she is on her period. She said it was embarrassing to ask. Efforts made to avoid power struggles and patient has been more agreeable today. She did refuse to allow the female tech to do her vital signs this morning, but allowed the male tech and then asked if he had a girlfriend. Pt did flirt with male staff at times. Pt relays some depression , but denies s.i. at this time. Pt also denies a/v hallucinations. Pt did attend select groups, but didn't always remain for the entire group. Pt room moved and pt was cooperative with room change. S/I, H/I: denies A/VH: Pt denies Sleep: napped today ADL's: Independent Group attendance: yes, though left group early both times Were meds taken: yes Any med S/E: none observed, none reported Mental Status Exam Appearance: Dressed in her own clothes and wears lots of make-up. Eye contact: Good Behavior: initially irritable and somewhat hostile but then became pleasant and cooperative as the shift progressed albeit somewhat needy with frequent requests. Speech: clear, audible, hyperverbal...labile Mood: irritable, anxious then improved to good...labile Affect: irritable, anxious then pleasant and friendly Thought process: disorganized, some reality distortion Thought Content: worried that friends are mad at her, she doesn't have bedbugs just mosquito bites and that she willl not be able to get her car back Cognition: A/O X 4 Insight: Poor Judgment: Poor Interventions PRN's used: Ativan and frequent nicotine lozenges Therapeutic interventions: 1:1 assessment, establishment of rapport, active listening, therapeutic conversation, medication administration/monitoring/education, blood sugar monitoring, reality orientation, positive reinforcement, encouragement to attend groups, encouragement of compliance with lab draws and finger sticks, Q 15 min safety checks. Restraints/seclusion/emergency medication: N/A Justification of Continued Inpatient Treatment: Pt is anxious and depressed, she has AH & VH, she has been off her meds for sometime though realizes she is mentally ill and needs medicine and help. She needs medication adjustment and monitoring in a safe, therapeutic environment as well as placement and follow up care for optimal compliance, pt safety, and to decrease the risk of readmittance. Pt though insightful presents as somewhat childlike and naive and may be vulnerable to being taken advantage of financially or otherwise by "friends"
[2019-06-05 19:55] VITALS: BP_SYST 103; BP_SYST 118; BP_DIAS 66; BP_DIAS 77
[2019-06-05] MEDS: TASIMELTEON 20 MG PO SCH (20:38)
[2019-06-05] MEDS: mirtazapine 15mg tablet PO SCH (20:39)
[2019-06-06] MEDS: ibuprofen tablet 400 MG TABLET PO SCH ×2 (00:07→07:25)
[2019-06-06] MEDS: traMADol 50MG tablet PO PRN ×2 (00:21→07:58)
--- NOTE | 2019-06-06 00:42 | NUR ---
NURSING PROGRESS NOTE: Legal Hold: VOL Report received from ANÍBAL Barber with use of SBAR Why they are here: Pt lives with Mother and teenage son in [place]. 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 Dr. Melendez currently manages her psych meds. Pt has had previous psych admit but states it has been years. Denies any previous suicide attempts and she states she does not currently feel suicidal. What happened this shift: Pt was in her room at change of shift. 1:1 assessment completed at bedside. Pt reports hearing voices but they are "not too bad", pt reports the voices are "hit or miss." She denies s/i. Pt is calm cooperative, c/o lower back pain. States she is looking forward to going home. S/I H/I: Denies A/VH: hearing voices, but no longer commanding ADLS: Independent Group attendance: no evening groups Were meds taken:Yes Any S/e noted: None reported nor observed Mental status exam: Appearance: Clean, wearing street clothes, hair brushed and wearing makeup Eye contact: Direct Behavior: quiet, respectful, isolating Speech: Normal rate, soft tone Mood: Anxious, depressed Affect: Flat with occasional brightening Thought process: Linear Thought content: wants to go home. Cognition: A&Ox4 Insight: Fair to good Judgment: good Interventions: PRN use: Ultram Therapeutic Interventions: Continued therapeutic support and medication management needed to provide stabilization. 1:1 assessment with patient, provide active listening and therapeutic milieu. Restraints/seclusion/emergency medication: N/A Justification of Continued Inpatient Treatment: Currently she is reporting depression and anxiety r/t command hallucinations. Continued therapeutic support and medication management needed to provide stabilization, prevent decompensation, improve coping mechanisms decreasing risk to patient and re-admittance.
[2019-06-06] MEDS: potassium chloride 10mEq ER tablet PO SCH (07:23)
[2019-06-06] MEDS: topiramate 100mg tablet PO SCH (07:24)
[2019-06-06] MEDS: venlafaxine XR 75mg capsule (Q24H) PO SCH (07:25)
[2019-06-06] MEDS: furosemide 40mg tablet PO SCH (07:25)
[2019-06-06] MEDS: pantoprazole 40mg Tablet.DR PO SCH (07:26)
[2019-06-06] MEDS: benztropine 1mg tablet PO SCH (07:26)
[2019-06-06 08:20] VITALS: BP 151/69
--- NOTE | 2019-06-06 13:16 | NUR ---
NURSING PROGRESS NOTE: Macy Legal Hold: VOL Report received from Leticia SPANGLER Why they are here: Pt lives with Mother and teenage son in [place]. 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 Dr. Melendez currently manages her psych meds. Pt has had previous psych admit but states it has been years. Denies any previous suicide attempts and she states she does not currently feel suicidal. What happened this shift: Pt was in her room at change of shift and soon was visible on the unit ambulating in halls. Client was cordial with assessment and she intends to discharge today. Pt c/o back pain at a level 6 out of ten and describes pain as located in her lower back whic is constant and sharp. She requested and received prn of Ultram per orders. Client has been visible on unit and her behavior has been appropriate. S/I H/I: Denies A/VH: hearing voices, but no longer commanding ADLS: Independent Group attendance: yes Were meds taken:Yes Any S/e noted: None reported nor observed Mental status exam: Appearance: Clean, wearing street clothes, hair brushed and wearing makeup Eye contact: Direct Behavior: quiet, respectful, isolating Speech: Normal rate, soft tone Mood: Anxious, depressed Affect: Flat with occasional brightening Thought process: Linear Thought content: wants to go home. Cognition: A&Ox4 Insight: Fair to good Judgment: good Interventions: PRN use: Ultram Therapeutic Interventions: Continued therapeutic support and medication management needed to provide stabilization. 1:1 assessment with patient, provide active listening and therapeutic milieu. Restraints/seclusion/emergency medication: N/A Justification of Continued Inpatient Treatment: Currently she is reporting depression and anxiety r/t command hallucinations. Continued therapeutic support and medication management needed to provide stabilization, prevent decompensation, improve coping mechanisms decreasing risk to patient and re-admittance.
[2019-06-06] MEDS ORDERED: MIRT30TA8 PO (14:12)
[2019-06-06] MEDS ORDERED: PERP4TAB11 PO (14:12)
[2019-06-06] MEDS ORDERED: VENL150T3 PO (14:12)
[2019-06-06] MEDS ORDERED: PANT40TA4 PO (14:12)
[2019-06-06] MEDS ORDERED: TOP100T PO (14:12)
[2019-06-06] MEDS ORDERED: PERP8TAB6 PO (14:12)
[2019-06-06] MEDS ORDERED: BENZ1TAB7 PO (14:12)
--- NOTE | 2019-06-06 15:22 | NUR ---
Discharge Note: Macy Client is discharging from this facility this afternoon and will go home with her Mother and son. Client has been given all discharge instructions and states that she understands conditions of release. Client condition has improved since admission and client states she is no longer hearing voices, She states that she is safe and not currently wishing to harm herself. Follow up instructions were given and patient verbalized an understanding. All inventoried property was returned to patient satisfaction and patient departed the unit at 1520 hours in the company of her Mother.
== END 2019-06-06 15:20 | disposition home or self-care (01) | DRG 885 ==
LOC: ADULT MH 22:22
PROVIDERS: ADMIT Psychiatry & Neurology Psychiatry; ATTEND Psychiatry & Neurology Psychiatry
DX: F20.9 Schizophrenia, unspecified (principal); R45.851 Suicidal ideations; G89.29 Other chronic pain; F32.9 Major depressive disorder, single episode, unspecified; F41.9 Anxiety disorder, unspecified; Z79.899 Other long term (current) drug therapy; Z90.721 Acquired absence of ovaries, unilateral; Z81.0 Family history of intellectual disabilities; Z90.49 Acquired absence of other specified parts of digestive tract; Z87.891 Personal history of nicotine dependence
CPT/HCPCS: 36415; 70551; 80053; 80061; 80305; 80320; 81025; 83036; 85025; 87081; Q0175

== ENCOUNTER 2019-07-12 12:25 | Emergency (ER) | payer MEDICARE, MEDICAID ==
[~2019-07-12] VITALS: Ht 165.1 cm; Wt 81.0 kg
[~2019-07-12 12:25] MED LIST changes: -BENZ0.5T43 PO; +BENZ1TAB7 PO; -CLON-527 PO; -FURO-150 PO; -IBUP-1986 PO; -MIRT30TA PO; +MIRT30TA8 PO; -OMEP40CA13 PO; +PANT40TA4 PO; +PERP4TAB11 PO; +PERP8TAB6 PO; -RISP4TAB2 PO
[2019-07-12 13:11] LABS: BASOPHILS % (AUTO) 0.4 % (0-1); EOSINOPHILS % (AUTO) 0.3 % (0-6); HEMATOCRIT 42.6 % (35.0-45.0); HEMOGLOBIN 14.2 g/dl (12.0-16.0); LYMPHOCYTES # (AUTO) 1.2 X10'3 (1.1-4.8); LYMPHOCYTES % (AUTO) 16.2 % (21-51); MEAN CORPUSCULAR HEMOGLOBIN 30.1 PG (27.0-31.0); MEAN CORPUSCULAR HGB CONC 33.4 g/dL (33.0-36.5); MEAN CORPUSCULAR VOLUME 90.3 FL (78-98); MEAN PLATELET VOLUME 8.7 FL (7.4-10.4); MONOCYTES # (AUTO) 0.4 X10'3 (0-0.9); MONOCYTES % (AUTO) 5.7 % (2-12); NEUTROPHILS # (AUTO) 5.8 X10'3 (1.8-7.7); NEUTROPHILS % (AUTO) 77.4 % (42-75); PLATELET COUNT 290 X10'3 (140-440); RED BLOOD COUNT 4.72 X10'6 (4.20-5.60); RED CELL DISTRIBUTION WIDTH 13.9 % (11.5-14.5); WHITE BLOOD COUNT 7.5 X10'3 (4.5-11.0)
--- NOTE | 2019-07-12 13:30 | NUR ---
Patient called RN over to tell her Renzo loves her. Continue to monitor.
[2019-07-12 13:35] LABS: ALANINE AMINOTRANSFERASE 29 U/L (12-78); ALBUMIN/GLOBULIN RATIO 1.1 (1.1-1.5); ALKALINE PHOSPHATASE 99 IU/L (46-116); ANION GAP 12 (8-16); ASPARTATE AMINO TRANSFERASE 15 U/L (10-37); BILIRUBIN,TOTAL 0.2 MG/DL (0.1-1.0); BLOOD UREA NITROGEN 6 MG/DL (7-18); BUN/CREATININE RATIO 6.9 (6.6-38.0); CALCIUM 9.3 MG/DL (8.5-10.1); CHLORIDE 104 MMOL/L (99-107); CREATININE 0.87 MG/DL (0.40-0.90); ETHANOL < 0.010 GM/DL (0.0-0.010); GLUCOSE 123 MG/DL (70-104); SODIUM 142 MMOL/L (135-145); TOTAL CARBON DIOXIDE 26.1 MMOL/L (24-32); TOTAL PROTEIN 7.8 G/DL (6.4-8.2); eGFR 72 ML/MIN
[2019-07-12 13:38] LABS: POTASSIUM 2.9 MMOL/L (3.5-5.1)
[2019-07-12] MEDS ORDERED: OMEP20TA5 PO (13:59)
[2019-07-12] MEDS ORDERED: CLON2TAB12 PO (13:59)
[2019-07-12] MEDS ORDERED: RISP4TAB2 PO (13:59)
[2019-07-12] MEDS ORDERED: BENZ1TAB7 PO (13:59)
[2019-07-12] MEDS ORDERED: VENL150C58 PO (13:59)
[2019-07-12] MEDS ORDERED: POTA10CA44 PO (13:59)
[2019-07-12] MEDS ORDERED: [UNRECOGNIZED DRUG - CODE] PO (13:59)
[2019-07-12] MEDS ORDERED: TOP100T PO (13:59)
[2019-07-12] MEDS ORDERED: PERP8TAB6 PO (13:59)
[2019-07-12] MEDS ORDERED: MIRT30TA8 PO (13:59)
[2019-07-12] MEDS ORDERED: FURO40TA4 PO (13:59)
[2019-07-12] MEDS ORDERED: TRAM50TA2 PO (13:59)
[2019-07-12] MEDS: potassium Cl 20 mEq SR tablet PO SCH ×2 (14:57→20:05)
--- NOTE | 2019-07-12 15:00 | NUR ---
Patient sitting in her room and reading her bible. Patient then came over to the nurses station and said she has been hearing voices for 10 years and tonight God is going to give her a miracle and stop the voices. Continue to monitor.
[2019-07-12 15:29] LABS: CLARITY,URINE CLOUDY (Clear); COLOR,URINE YELLOW (Yellow); GLUCOSE, URINE NEGATIVE (Neg); KETONES,URINE NEGATIVE (Neg); LEUKOCYTE ESTERASE ,URINE NEGATIVE (Neg); NITRITES, URINE NEGATIVE (Neg); OCCULT BLOOD,URINE NEGATIVE (Neg); PROTEIN,URINE NEGATIVE (Neg); UROBILINOGEN,URINE 0.2 E.U/dL (0.2-1.0)
[2019-07-12 15:31] LABS: UA COLLECTION TYPE NON-SPECIFIED
[2019-07-12 15:33] LABS: URINE HCG NEGATIVE (NEG)
[2019-07-12 15:34] LABS: SQUAMOUS EPITHELIAL CELL,UR MANY /LPF (FEW)
[2019-07-12 15:36] LABS: AMORPHOUS PHOSPHATES 2+; BACTERIA,URINE 2+ /HPF (Neg); TRANSITIONAL EPI CELLS,URINE MODERATE /HPF
[2019-07-12 15:37] LABS: MUCUS STRANDS FEW /LPF (Neg); RBC,URINE 0-2 /HPF (0-2); WBC,URINE 0-4 /HPF (0-4)
[2019-07-12 15:43] LABS: URINE AMPHETAMINE SCREEN NEGATIVE (Neg); URINE BARBITUATE SCREEN NEGATIVE (Neg); URINE BENZODIAZEPINES SCREEN NEGATIVE (Neg); URINE CANNABINOID SCREEN NEGATIVE (Neg); URINE COCAINE SCREEN NEGATIVE (Neg); URINE METHADONE SCREEN NEGATIVE (Neg); URINE OPIATE SCREEN NEGATIVE (Neg); URINE PHENCYCLIDINE SCREEN NEGATIVE (Neg)
--- NOTE | 2019-07-12 17:10 | NUR ---
Patient awake and alert and in no distress. Patient denies suicidal ideation. Patient wants help for her voices. Patient is pending eval from [facility]. Continue to monitor.
--- NOTE | 2019-07-12 19:47 | NUR ---
The patient is resting on her bed and focused on reading her bible. She refused to eat. She is hyper hinduism and makes repeated references to hearing god talk to her. She stated, "Tonigh is my miracle because my voices will stop" She stated that she is constantly hearing God talk to her. "He's telling me there's going to be a miracle". She denies visual hallucinations or paranoia. She appears guarded and distracted by internal stimuli. When asked how her mood was she stated, "all over the place" She reports that she has suicidal thoughts by "sticking a knife in my neck or wrecking my car"
[2019-07-12] MEDS ORDERED: clonazePAM 1mg tablet PO PRN (20:00)
[2019-07-12] MEDS: topiramate 100mg tablet PO SCH (20:00)
--- NOTE | 2019-07-12 20:26 | NUR ---
The patient refused her HS medications except the K+ replacement and explained "I'm going off all of my meds. I'm receiving a miracle"
[2019-07-12] MEDS ORDERED: mirtazapine 15mg tablet PO SCH (21:00)
--- NOTE | 2019-07-12 21:59 | NUR ---
The patient is reading her bible and periodically walks up to the nursing station stating, "I'm receiving my miracle" She continues to refuse medications.
--- NOTE | 2019-07-12 23:23 | NUR ---
The patient is up and down in her bed. She is having difficulty sleeping but continues to refuse medications.
--- NOTE | 2019-07-13 00:37 | NUR ---
The patient continues to be awake in her bed and reading her bible
--- NOTE | 2019-07-13 02:14 | NUR ---
The patient remains awake and appears preoccupied by internal stimuli
[2019-07-13 05:24] VITALS: BP 130/90
--- NOTE | 2019-07-13 05:46 | NUR ---
The patient is sitting on bed but awake and has been awake most of the night. She remains psychotic and delusional but refusing medications because she will have a "miracle"
--- NOTE | 2019-07-13 06:35 | NUR ---
Patient is awake sitting up reading bible
[2019-07-13] MEDS ORDERED: pantoprazole 40mg Tablet.DR PO SCH (07:30)
--- NOTE | 2019-07-13 07:40 | NUR ---
Sitting up reading. No distress at this time.
[2019-07-13] MEDS: potassium Cl 20 mEq SR tablet PO SCH (08:00)
[2019-07-13] MEDS: topiramate 100mg tablet PO SCH (08:00)
[2019-07-13] MEDS ORDERED: furosemide 40mg tablet PO SCH (08:00)
[2019-07-13] MEDS ORDERED: venlafaxine XR 75mg capsule (Q24H) PO SCH (08:00)
== END 2019-07-13 10:05 | disposition home or self-care (01) ==
LOC: ER 12:26
DX: R44.0 Auditory hallucinations (principal); F41.9 Anxiety disorder, unspecified; F32.9 Major depressive disorder, single episode, unspecified; Z98.890 Other specified postprocedural states; Z88.5 Allergy status to narcotic agent; Z79.899 Other long term (current) drug therapy
CPT/HCPCS: 36415; 80053; 80305; 80320; 81001; 81025; 84443; 85025; 99284

== ENCOUNTER 2019-07-14 15:59 | Emergency (ER) | payer MEDICARE, MEDICAID ==
[~2019-07-14] VITALS: Ht 165.1 cm; Wt 84.1 kg
[~2019-07-14 15:59] MED LIST changes: +CLON2TAB12 PO; +OMEP20TA5 PO; +POTA10CA44 PO; +RISP4TAB2 PO; +VENL150C58 PO; +[UNRECOGNIZED DRUG - CODE] PO
--- NOTE | 2019-07-14 16:44 | NUR ---
Patient's mother Elza cell phone number [phone]
[2019-07-14 16:56] LABS: BASOPHILS # (AUTO) 0.1 X10'3 (0-0.2); BASOPHILS % (AUTO) 0.7 % (0-1); EOSINOPHILS % (AUTO) 0 % (0-6); HEMATOCRIT 43.9 % (35.0-45.0); HEMOGLOBIN 14.6 g/dl (12.0-16.0); LYMPHOCYTES # (AUTO) 1.6 X10'3 (1.1-4.8); LYMPHOCYTES % (AUTO) 12.3 % (21-51); MEAN CORPUSCULAR HGB CONC 33.4 g/dL (33.0-36.5); MEAN PLATELET VOLUME 8.9 FL (7.4-10.4); MONOCYTES # (AUTO) 1.2 X10'3 (0-0.9); MONOCYTES % (AUTO) 9.4 % (2-12); NEUTROPHILS # (AUTO) 10.3 X10'3 (1.8-7.7); NEUTROPHILS % (AUTO) 77.6 % (42-75); PLATELET COUNT 314 X10'3 (140-440); RED BLOOD COUNT 4.88 X10'6 (4.20-5.60); WHITE BLOOD COUNT 13.3 X10'3 (4.5-11.0)
[2019-07-14 17:06] LABS: ALANINE AMINOTRANSFERASE 29 U/L (12-78); ALBUMIN/GLOBULIN RATIO 1.1 (1.1-1.5); ALKALINE PHOSPHATASE 98 IU/L (46-116); ANION GAP 14 (8-16); ASPARTATE AMINO TRANSFERASE 22 U/L (10-37); BILIRUBIN,TOTAL 0.5 MG/DL (0.1-1.0); BLOOD UREA NITROGEN 15 MG/DL (7-18); BUN/CREATININE RATIO 14.4 (6.6-38.0); CALCIUM 9.3 MG/DL (8.5-10.1); CHLORIDE 102 MMOL/L (99-107); CREATININE 1.04 MG/DL (0.40-0.90); GLUCOSE 113 MG/DL (70-104); POTASSIUM 3.5 MMOL/L (3.5-5.1); SODIUM 140 MMOL/L (135-145); TOTAL CARBON DIOXIDE 24.5 MMOL/L (24-32); TOTAL PROTEIN 7.8 G/DL (6.4-8.2); eGFR 58 ML/MIN
--- NOTE | 2019-07-14 17:09 | NUR ---
Pt has not eaten since with the exception of a taco. She stopped taking her medications . Mother found her in the bathroom running scalding water over her hands
[2019-07-14 17:11] LABS: ETHANOL < 0.010 GM/DL (0.0-0.010)
[2019-07-14 17:15] LABS: URINE HCG NEGATIVE (NEG)
[2019-07-14 17:16] LABS: CLARITY,URINE CLOUDY (Clear); COLOR,URINE YELLOW (Yellow); GLUCOSE, URINE NEGATIVE (Neg); KETONES,URINE 40 mg/dl (Neg); LEUKOCYTE ESTERASE ,URINE NEGATIVE (Neg); NITRITES, URINE NEGATIVE (Neg); OCCULT BLOOD,URINE NEGATIVE (Neg); PROTEIN,URINE TRACE mg/dl (Neg)
--- NOTE | 2019-07-14 17:18 | NUR ---
Pt states she is suicidal but has no intent and no plan.
[2019-07-14 17:20] LABS: UA COLLECTION TYPE CLN CATCH MIDSTREAM
[2019-07-14 17:25] LABS: SQUAMOUS EPITHELIAL CELL,UR MANY /LPF (FEW)
[2019-07-14 17:30] LABS: BACTERIA,URINE FEW /HPF (Neg); RBC,URINE 0-2 /HPF (0-2)
[2019-07-14 17:36] LABS: URINE AMPHETAMINE SCREEN NEGATIVE (Neg); URINE BARBITUATE SCREEN NEGATIVE (Neg); URINE BENZODIAZEPINES SCREEN NEGATIVE (Neg); URINE CANNABINOID SCREEN NEGATIVE (Neg); URINE COCAINE SCREEN NEGATIVE (Neg); URINE METHADONE SCREEN NEGATIVE (Neg); URINE OPIATE SCREEN NEGATIVE (Neg); URINE PHENCYCLIDINE SCREEN NEGATIVE (Neg)
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
--- NOTE | 2019-07-14 19:30 | NUR ---
Clean catch urine was collected for a second time at 1930. First urine was rejected for culture. Urine was sent to lab, awaiting results.
--- NOTE | 2019-07-14 19:30 | NUR ---
New specimen sent to lab for UA with culture.
[2019-07-14] MEDS ORDERED: clonazePAM 1mg tablet PO PRN (20:00)
--- NOTE | 2019-07-14 20:00 | NUR ---
Pt medication compliant. Home medication hetlioz not stocked by pharmacy. Pt asked if she would like someone to bring it in for her from home and she said, "I want to stop taking that medication so no thank you."
[2019-07-14] MEDS: venlafaxine XR 75mg capsule (Q24H) PO SCH (20:35)
[2019-07-14] MEDS ORDERED: mirtazapine 15mg tablet PO SCH (21:00)
[2019-07-14] MEDS: topiramate 100mg tablet PO SCH (21:28)
--- NOTE | 2019-07-14 22:00 | NUR ---
Pt is laying awake quietely. She sits up occasionally and rubs her ankles, then lays back down. RR WNL
--- NOTE | 2019-07-14 23:12 | NUR ---
Packet sent to [facility]. Confirmed receipt of packet with Tarsha @ [facility] office. Confirmed with Tarsha that packet could be sent with out repeat UA culture.
--- NOTE | 2019-07-15 | NUR ---
Pt gets up and uses the restroom at this time. She has not yet slept. Furnace Room Supervisor offers to give her PRN klonopin to help her fall asleep but she politely refuses.
--- NOTE | 2019-07-15 02:00 | NUR ---
Pt closes her eyes but is restless in bed. Lighting Technician offers her PRN katie once again and explains to pt what klonopin is, but pt refuses and says, "I am okay."
--- NOTE | 2019-07-15 04:30 | NUR ---
Pt resting on R side with her eyes closed RR WNL.
[2019-07-15 05:30] VITALS: BP 106/67
--- NOTE | 2019-07-15 06:30 | NUR ---
Pt up to the bathroom ambulating independently with a steady gait
--- NOTE | 2019-07-15 07:09 | NUR ---
Pt is asleep on her Back. No s/s of distress respirations are even and unlabored.
[2019-07-15] MEDS ORDERED: pantoprazole 40mg Tablet.DR PO SCH (07:30)
[2019-07-15] MEDS ORDERED: furosemide 40mg tablet PO SCH (08:00)
[2019-07-15] MEDS ORDERED: potassium chloride 10mEq CAPSULE.SA PO SCH (08:00)
[2019-07-15] MEDS: venlafaxine XR 75mg capsule (Q24H) PO SCH (08:06)
--- NOTE | 2019-07-15 08:24 | NUR ---
Pt is awake and eating breakfast. She took all of her medications as prescribed. She states she is feeling better today.
[2019-07-15] MEDS ORDERED: potassium chloride 10mEq ER tablet PO SCH (08:30)
[2019-07-15] MEDS: topiramate 100mg tablet PO SCH (08:48)
--- NOTE | 2019-07-15 10:11 | NUR ---
[facility] IS WITH PT AT BEDSIDE.
--- NOTE | 2019-07-15 11:34 | NUR ---
Pt sleeping on her back
--- NOTE | 2019-07-15 11:35 | NUR ---
No s/s of distress respirations are even and unlabored.
--- NOTE | 2019-07-15 12:10 | NUR ---
pt awake and went to the bathroom
--- NOTE | 2019-07-15 12:20 | NUR ---
pt is laying on her back being good
--- NOTE | 2019-07-15 14:18 | NUR ---
Pt on the phone with her mother
--- NOTE | 2019-07-15 15:11 | NUR ---
pts mom is at bedside and brought in clothes for pt to take up to [facility]
--- NOTE | 2019-07-15 15:18 | NUR ---
Pt mother here to visit. Pt medication heltioz is being held in the pharmacy. CB called and pt is being admitted.
[2019-07-15] MEDS ORDERED: DIPH25CA83 PO (17:19)
[2019-07-16] MEDS ORDERED: [UNRECOGNIZED DRUG - CODE] PO (18:02)
== END 2019-07-15 15:36 ==
LOC: ER 15:59
DX: R45.851 Suicidal ideations (principal); F32.9 Major depressive disorder, single episode, unspecified; F41.9 Anxiety disorder, unspecified; F20.9 Schizophrenia, unspecified; Z98.890 Other specified postprocedural states; Z88.8 Allergy status to other drugs, medicaments and biological substances; Z88.6 Allergy status to analgesic agent; Z79.899 Other long term (current) drug therapy
CPT/HCPCS: 36415; 80053; 80305; 80320; 81001; 81025; 84443; 85025; 87088; 99285; Q0175

== ENCOUNTER 2019-07-15 13:00 | Inpatient (IN) | payer MEDICARE, MEDICAID ==
[~2019-07-15] VITALS: Ht 165.1 cm; Wt 78.0 kg
[~2019-07-15 13:00] MED LIST changes: -BENZ1TAB7 PO; -PANT40TA4 PO; -PERP4TAB11 PO; -POTA10TA15 PO; -RISP4TAB2 PO; -VENL150T3 PO; -[UNRECOGNIZED DRUG - CODE]
[2019-07-15] MEDS ORDERED: acetaminophen 325mg tablet PO PRN (16:10)
[2019-07-15] MEDS ORDERED: loperamide 2mg capsule PO PRN (16:10)
[2019-07-15] MEDS ORDERED: magnesium hydroxide 30ml (MOM) UD suspension PO PRN (16:10)
[2019-07-15] MEDS ORDERED: mag hydrox/Alum hydrox/simeth 30ml oral suspension PO PRN (16:10)
[2019-07-15] MEDS ORDERED: LORazepam 1 MG tablet PO PRN (16:10)
[2019-07-15] MEDS ORDERED: NICOTINE POLACRILEX 2 MG LOZENGE MM PRN (16:10)
--- NOTE | 2019-07-15 17:04 | NUR ---
Admission note: Pt admitted to [facility] at 1605 on a 5150 for gravely disabled. Pt has not been eating or sleeping and feels God has healed her. She has been unresponsive at times and at home held her wrists under hot water for several hours. She need to be reminded to attend to her daily needs and is unable to be maintained safely in the community. Pt has not been taking her meds for last 3 days. Pt was in the ER 2 days ago and released due to not meeting 5150 criteria at that time. PT now complains of suicidal ideation. Pt states she has a plan but wont talk about it. Pt cooperative with the admission process. 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
[2019-07-15] MEDS ORDERED: DIPH25CA83 PO (17:19)
[2019-07-15] MEDS ORDERED: FLU VACC QS2019-20 36MOS UP/PF 60 MCG/0.5 ML SYRINGE IMVAC ONE (17:20)
[2019-07-15 17:56] VITALS: BP 110/69
[2019-07-15] MEDS: clonazePAM 1mg tablet PO PRN (18:01)
[2019-07-15 19:48] VITALS: BP 91/56
[2019-07-15] MEDS: topiramate 100mg tablet PO SCH (20:45)
[2019-07-15] MEDS ORDERED: mirtazapine 15mg tablet PO SCH (21:00)
[2019-07-15] MEDS ORDERED: traMADol 50MG tablet PO SCH (21:00)
--- NOTE | 2019-07-16 03:29 | NUR ---
Nursing Progress Note: Legal hold:5150 Client on involuntary status for GD Report received from nurse with use of ANA Sprague RN Why are they here: Pt admitted to [facility] at 1605 on a 5150 for gravely disabled. Pt has not been eating or sleeping and feels God has healed her. She has been unresponsive at times and at home held her wrists under hot water for several hours. She need to be reminded to attend to her daily needs and is unable to be maintained safely in the community. Pt has not been taking her meds for last 3 days. Pt was in the ER 2 days ago and released due to not meeting 5150 criteria at that time. PT now complains of suicidal ideation. Pt states she has a plan but wont talk about it. Pt cooperative with the admission process. 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 Assessment What has happened this shift: Pt was in her room at change of shift. Appears to be resting comfortably. Pt states she is here s/i and states she has been suicidal "for a long time." Does not answer when asked about a plan. Pt does not respond to several questions only stating she is tired and wants to take a nap. Pt reports she doesnt sleep well "sometimes." Pts appetite is good. She remained in her room talking w/her mom on the phone for most of the evening before requesting a snack and going to bed. S/I, H/I: reports s/i, but does not disclose a plan A/VH: denies Sleep: sleeping well this shift ADL's: independant Group attendance: no evening groups Were meds taken: yes, pt reports hetlioz to sleep at night, however was not prescribed on emar, hetlioz was located in pharmacy. Any med S/E non reported or observed Mental Status Exam Appearance: adequately groomed and dressed wearing street clothes. Eye contact: good Behavior: calm, cooperative, speaking w/her mother on the phone isolates to her room Speech: soft spoken, normal rate and rhythm Mood: depressed Affect: flat Thought process: linear Thought Content: asking about hetlioz, Cognition: impaired Insight: poor Judgment: poor Interventions PRN's used: none Therapeutic interventions: 1:1 assessment, medication administration/monitoring/education, encouragement to attend groups, positive reinforcement, reality orientation, decreased stimulation, boundary setting, Q 15 minute safety checks. Restraints/seclusion/emergency medication: N/A Justification of Continued Inpatient Treatment: Continued therapeutic support and medication management needed to provide stabilization, prevent decompensation, improve coping mechanisms decreasing risk to patient and re-admittance.
[2019-07-16 08:00] VITALS: BP 112/70
[2019-07-16] MEDS: topiramate 100mg tablet PO SCH ×2 (08:11→20:44)
[2019-07-16] MEDS: pantoprazole 40mg Tablet.DR PO SCH (08:11)
[2019-07-16] MEDS: furosemide 40mg tablet PO SCH (08:12)
[2019-07-16] MEDS: venlafaxine XR 75mg capsule (Q24H) PO SCH ×2 (08:12→20:00)
[2019-07-16] MEDS: potassium chloride 10mEq CAPSULE.SA PO SCH (08:14)
[2019-07-16] MEDS: hydrOXYzine 25 MG tablet PO PRN (10:02)
[2019-07-16] MEDS: acetaminophen 325mg tablet PO PRN (10:35)
--- NOTE | 2019-07-16 16:56 | NUR ---
Nursing Progress Note: Legal hold:5150 Client on involuntary status for GD Report received from Emily MOSER with use of SBAR Why are they here: Pt admitted to [place] for [facility] at 1605 on a 5150 for gravely disabled. Pt has not been eating or sleeping and feels God has healed her. She has been unresponsive at times and at home held her wrists under hot water for several hours. She need to be reminded to attend to her daily needs and is unable to be maintained safely in the community. Pt has not been taking her meds for last 3 days. Pt was in the ER 2 days ago and released due to not meeting 5150 criteria at that time. PT now complains of suicidal ideation. Pt states she has a plan but wont talk about it. Pt cooperative with the admission process. 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 Assessment What has happened this shift: Pt up and dressed for the day. Pt has extremely blunted affect. Pt relays depressed mood; though no S.I. this morning. Pt also currently denies auditory hallucinations. Pt is complaining this morning of "not feeling well" and anxiety. Pt given atarax for anxiety and tylenol for back ache. Pt grandmother visited this am and they had a good visit. Pt was glad she came. Pt spend much of her free time either listening to music or reading the bible. Pt did attend groups and meals. S/I, H/I: denies S.I. A/VH: denies Sleep: no napping today ADL's: independant Group attendance: yes Were meds taken: yes, pt reports hetlioz to sleep at night, however was not prescribed on emar, hetlioz was located in pharmacy. Any med S/E non reported or observed Mental Status Exam Appearance: adequately groomed and dressed wearing street clothes. Eye contact: good Behavior: calm, cooperative, speaking w/her mother on the phone isolates to her room Speech: soft spoken, normal rate and rhythm Mood: depressed Affect: flat Thought process: linear Thought Content: asking about hetlioz, Cognition: impaired Insight: poor Judgment: poor Interventions PRN's used: none Therapeutic interventions: 1:1 assessment, medication administration/monitoring/education, encouragement to attend groups, positive reinforcement, reality orientation, decreased stimulation, boundary setting, Q 15 minute safety checks. Restraints/seclusion/emergency medication: N/A Justification of Continued Inpatient Treatment: Continued therapeutic support and medication management needed to provide stabilization, prevent decompensation, improve coping mechanisms decreasing risk to patient and re-admittance.
[2019-07-16] MEDS ORDERED: [UNRECOGNIZED DRUG - CODE] PO (18:02)
[2019-07-16] MEDS: clonazePAM 1mg tablet PO PRN (18:46)
[2019-07-16] MEDS: mirtazapine 15mg tablet PO SCH (20:41)
[2019-07-16] MEDS ORDERED: venlafaxine XR 75mg capsule (Q24H) PO SCH (21:00)
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
--- NOTE | 2019-07-17 00:40 | NUR ---
A1C lab was completed 05/24/19. (A1C 5.1)
[2019-07-17 07:04] LABS: CHOL/HDL RATIO 1.7 (0.00-4.99); CHOLESTEROL 128 MG/DL (0-200); HDL CHOLESTEROL 77 MG/DL (35-60); LDL CHOLESTEROL 30 MG/DL (50-100); TRIGLYCERIDES 90 MG/DL (20-135)
[2019-07-17] MEDS: potassium chloride 10mEq ER tablet PO SCH (08:00)
[2019-07-17] MEDS: potassium chloride 10mEq CAPSULE.SA PO SCH (08:13)
[2019-07-17] MEDS: venlafaxine XR 75mg capsule (Q24H) PO SCH (08:13)
[2019-07-17] MEDS: pantoprazole 40mg Tablet.DR PO SCH (08:13)
[2019-07-17] MEDS: furosemide 40mg tablet PO SCH (08:13)
[2019-07-17] MEDS: topiramate 100mg tablet PO SCH ×2 (08:13→20:32)
[2019-07-17] MEDS: clonazePAM 1mg tablet PO PRN ×2 (10:23→23:36)
--- NOTE | 2019-07-17 16:38 | NUR ---
Nursing Progress Note: Legal hold:5150 Client on involuntary status for GD Report received from Emily MOSER with use of SBAR Why are they here: Pt admitted to [facility] at 1605 on a 5150 for gravely disabled. Pt has not been eating or sleeping and feels God has healed her. She has been unresponsive at times and at home held her wrists under hot water for several hours. She need to be reminded to attend to her daily needs and is unable to be maintained safely in the community. Pt has not been taking her meds for last 3 days. Pt was in the ER 2 days ago and released due to not meeting 5150 criteria at that time. PT now complains of suicidal ideation. Pt states she has a plan but wont talk about it. Pt cooperative with the admission process. 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 Assessment What has happened this shift: Pt up and dressed for the day. Pt continues to have extremely blunted affect. Pt denies depression and S.I. Pt also currently denies auditory hallucinations. Pt states she doesnt feel safe here because she wants to go home. Pt also stated that she felt the voices were trying to keep her here by not speaking to her now. Pt given klonopin for anxiety. Pt spend much of her free time either listening to music or reading the bible and stated that she was focused on a spiritual healing. Pt did attend groups and meals. S/I, H/I: denies S.I. A/VH: denies Sleep: no napping today ADL's: independant Group attendance: yes Were meds taken: yes, pt reports hetlioz to sleep at night, however was not prescribed on emar, hetlioz was located in pharmacy. Any med S/E non reported or observed Mental Status Exam Appearance: adequately groomed and dressed wearing street clothes. Eye contact: good Behavior: calm, cooperative, speaking w/her mother on the phone isolates to her room Speech: soft spoken, normal rate and rhythm Mood: depressed Affect: flat Thought process: linear Thought Content: asking about hetlioz, Cognition: impaired Insight: poor Judgment: poor Interventions PRN's used: none Therapeutic interventions: 1:1 assessment, medication administration/monitoring/education, encouragement to attend groups, positive reinforcement, reality orientation, decreased stimulation, boundary setting, Q 15 minute safety checks. Restraints/seclusion/emergency medication: N/A Justification of Continued Inpatient Treatment: Continued therapeutic support and medication management needed to provide stabilization, prevent decompensation, improve coping mechanisms decreasing risk to patient and re-admittance.
[2019-07-17 20:19] VITALS: BP 100/66
[2019-07-17] MEDS: mirtazapine 15mg tablet PO SCH (20:33)
[2019-07-17] MEDS: hydrOXYzine 25 MG tablet PO PRN (20:33)
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
[2019-07-18 08:00] VITALS: BP 125/91
[2019-07-18 08:03] LABS: BASOPHILS % (AUTO) 0.4 % (0-1); EOSINOPHILS # (AUTO) 0.1 X10'3 (0-0.9); EOSINOPHILS % (AUTO) 1.9 % (0-6); HEMATOCRIT 46.3 % (35.0-45.0); HEMOGLOBIN 15.7 g/dl (12.0-16.0); LYMPHOCYTES # (AUTO) 1.5 X10'3 (1.1-4.8); LYMPHOCYTES % (AUTO) 19.2 % (21-51); MEAN CORPUSCULAR HEMOGLOBIN 30.5 PG (27.0-31.0); MEAN CORPUSCULAR HGB CONC 33.9 g/dL (33.0-36.5); MONOCYTES # (AUTO) 0.6 X10'3 (0-0.9); NEUTROPHILS # (AUTO) 5.4 X10'3 (1.8-7.7); NEUTROPHILS % (AUTO) 70.5 % (42-75); PLATELET COUNT 298 X10'3 (140-440); RED BLOOD COUNT 5.14 X10'6 (4.20-5.60); RED CELL DISTRIBUTION WIDTH 13.5 % (11.5-14.5); WHITE BLOOD COUNT 7.7 X10'3 (4.5-11.0)
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
[2019-07-18] MEDS: potassium chloride 10mEq ER tablet PO SCH (09:09)
[2019-07-18] MEDS: furosemide 40mg tablet PO SCH (09:09)
[2019-07-18] MEDS: topiramate 100mg tablet PO SCH ×2 (09:10→21:26)
[2019-07-18] MEDS: pantoprazole 40mg Tablet.DR PO SCH (09:10)
[2019-07-18] MEDS: venlafaxine XR 75mg capsule (Q24H) PO SCH (09:10)
[2019-07-18] MEDS: docusate sod 100mg capsule PO SCH (10:30)
[2019-07-18] MEDS: clonazePAM 1mg tablet PO PRN (11:43)
--- NOTE | 2019-07-18 17:45 | NUR ---
Nursing Progress Note: Legal hold:5250 Client on involuntary status for GD Report received from Leticia MOSER with use of SBAR Why are they here: Pt admitted to [facility] for [facility] health at 1605 on a 5150 for gravely disabled. Pt has not been eating or sleeping and feels God has healed her. She has been unresponsive at times and at home held her wrists under hot water for several hours. She need to be reminded to attend to her daily needs and is unable to be maintained safely in the community. Pt has not been taking her meds for last 3 days. Pt was in the ER 2 days ago and released due to not meeting 5150 criteria at that time. PT now complains of suicidal ideation. Pt states she has a plan but wont talk about it. Pt cooperative with the admission process. 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 Assessment What has happened this shift: Pt up and dressed for the day. Pt continues to have extremely blunted affect. Pt denies depression and S.I. Pt did finally admit she does hear voices, off and on at times Pt stated she did not remember content, but that they, tell me what to do. Pt met with hospital social worker today and after requested klonopin for anxiety and stated, a lot of things were brought up. Pt partially attended groups. S/I, H/I: denies S.I. A/VH: denies Sleep: no napping today ADL's: independant Group attendance: partial Were meds taken: yes Any med S/E non reported or observed: no Mental Status Exam Appearance: adequately groomed and dressed wearing street clothes. Eye contact: good Behavior: calm, cooperative, speaking w/her mother on the phone isolates to her room Speech: soft spoken, normal rate and rhythm Mood: depressed Affect: flat Thought process: linear Thought Content: internally preoccupied Cognition: impaired Insight: poor Judgment: poor Interventions PRN's used: klonopin Therapeutic interventions: 1:1 assessment, medication administration/monitoring/education, encouragement to attend groups, positive reinforcement, reality orientation, decreased stimulation, boundary setting, Q 15 minute safety checks. Restraints/seclusion/emergency medication: N/A Justification of Continued Inpatient Treatment: Continued therapeutic support and medication management needed to provide stabilization, prevent decompensation, improve coping mechanisms decreasing risk to patient and re-admittance.
[2019-07-18 20:00] VITALS: BP 111/74
[2019-07-18] MEDS ORDERED: risperiDONE 2mg tablet PO SCH (21:00)
[2019-07-18] MEDS ORDERED: mirtazapine 15mg tablet PO SCH (21:00)
[2019-07-19] MEDS: clonazePAM 1mg tablet PO PRN ×2 (01:12→13:11)
--- NOTE | 2019-07-19 01:49 | NUR ---
Nursing Progress Note: Legal hold:5250 Client on involuntary status for GD Report received from nurse with use of SBAR: EHSAN Kelly Why are they here: Pt admitted to [facility] for Behavior[facility] health on a 5150 for gravely disabled. Pt has not been eating or sleeping, and is religiously preoccupied, feels God has healed her. She has been unresponsive at times and at home, and held her wrists under hot water for several hours. Pt. needs to be reminded to attend to her daily needs and is unable to be maintained safely in the community. Pt has not been taking her meds for last 3 days, and reports S/I, but will not talk about a plan. She also has command A/EDWARDS. Assessment What has happened this shift: Pt. comes to the nurses' station at the beginning of the shift and requests a list of all of her current medications. Medication list provided to pt., and pt. also reports that she would like her boyfriend to be her medical advocate r/t her ongoing A/EDWARDS and becoming confused at times. This public relations writer educated pt. to talk with the SW regarding this because it would require legal paperwork to be done, pt. reported understanding. Pt. withdrawn and proceeded to isolate in her room throughout most of the shit, talking on the phone. 1:1 completed at bedside, pt. denies S/I, however reports ongoing A/EDWARDS which cause her anxiety and some insomnia. No delusional or hyper-denominational statements made this shift. S/I, H/I: Denies A/VH: Ongoing A/EDWARDS Sleep: Pt. reports insomnia r/t anxiety and states, "I can't turn the thoughts off in my head." PRN Klonopin administered at approximately 0100, will continue to monitor. ADL's: Requires some prompting and direction from staff Group attendance: Pt. reports she attends groups Were meds taken: Yes Any med S/E: None Mental Status Exam Appearance: Neat and appropriately dressed Eye contact: Good Behavior: Cooperative, restless, guarded, withdrawn, and fatigued Speech: Soft, minimal Mood: Withdrawn Affect: Flat Thought process: Linear Thought Content: Ongoing A/EDWARDS which cause anxiety/insomnia Cognition: A&O X4 Insight: Poor Judgment: Poor to fair Interventions PRN's used: Klonopin Therapeutic interventions: Introduced self and established rapport, established contract for safety, provided clear and simple instructions, attempted to reorient to reality, monitored behaviors and need for interventions, provided active listening, educated pt .to report any insomnia, and maintained Q 15 min safety checks. Restraints/seclusion/emergency medication: N/A Justification of Continued Inpatient Treatment: Pt. continues to require medication adjustments and a safe and supportive environment.
[2019-07-19] MEDS: docusate sod 100mg capsule PO SCH (07:45)
[2019-07-19] MEDS: furosemide 40mg tablet PO SCH (07:46)
[2019-07-19] MEDS: potassium chloride 10mEq ER tablet PO SCH (07:46)
[2019-07-19] MEDS: topiramate 100mg tablet PO SCH ×2 (07:46→20:56)
[2019-07-19] MEDS: pantoprazole 40mg Tablet.DR PO SCH (07:46)
[2019-07-19] MEDS: venlafaxine XR 75mg capsule (Q24H) PO SCH (07:46)
[2019-07-19 08:00] VITALS: BP 96/68
[2019-07-19 08:30] VITALS: BP 112/79
[2019-07-19] MEDS: acetaminophen 325mg tablet PO PRN (09:07)
--- NOTE | 2019-07-19 13:46 | NUR ---
Industrial Garage Servicer 1:1 The undersigned clinician met individually with pt per request from treatment team. Intervention= attuned empathic listening using bilateral sound. Pt. reports emotional distress at a 6 of fear and sadness felt in chest reduced to a 0. Pt. reports feeling conflicted about being here reports she is homesick and also wanting to get help. Plan= continue to collaborate with treatment team to support pt. Ruma HENSLEY
--- NOTE | 2019-07-19 16:19 | NUR ---
Nursing Progress Note: Legal hold:5250 Client on involuntary status for GD Report received from nurse with use of SBAR: Leticia RN Why are they here: Pt admitted to [facility] for [facility] health on a 5150 for gravely disabled. Pt has not been eating or sleeping, and is religiously preoccupied, feels God has healed her. She has been unresponsive at times and at home, and held her wrists under hot water for several hours. Pt. needs to be reminded to attend to her daily needs and is unable to be maintained safely in the community. Pt has not been taking her meds for last 3 days, and reports S/I, but will not talk about a plan. She also has command A/EDWARDS. Assessment What has happened this shift: Pt denied depression, anxiety, SI/HI/VH. Pt denied AH today, stated she heard some yesterday afternoon telling her that "you're never going to get outta here." Pt reported that she stopped taking her meds in the community because the voices told her to. Pt also stated that something bad happened that she doesn't want to talk about. Pt stated that the voices mostly stopped once she arrived here on the unit. Pt c/o 4/10 back pain at 0907, given prn Tylenol 650 mg with good effect. Pt c/o increased anxiety at 1300, given prn Klonopin 1 mg with good effect. Pt had a 5250 hearing today which she did not contest, her hold was upheld. Pt's Klonopin was decreased today from 2 mg Q12H prn to 1 mg Q12H prn and her Remeron was increased from 30 to 45 mg HS. S/I, H/I: Pt denies A/VH: Pt denied VH, denies AH today but stated she had some yesterday afternoon. Sleep: Pt slept 8 hours per noc shift report ADL's: Independent though is not applying makeup or taking care with her appearance as she did at the end of her previous stay here. Group attendance: Pt. reports she attends groups Were meds taken: Yes Any med S/E: None noted or reported Mental Status Exam Appearance: Clean, wearing street clothes, no makeup on Eye contact: Good Behavior: cooperative, withdrawn, isolative to self Speech: Clear, soft, minimal Mood: bland, denied symptoms Affect: blunted, depressed Thought process: Linear Thought Content: Misses her boyfriend, wants to go home. Cognition: A&O X4 Insight: Poor Judgment: Poor to fair Interventions PRN's used: Tylenol 650 mg, Klonopin 1 mg Therapeutic interventions: 1:1 assessment, active listening, therapeutic conversation, encouragement to perform self-care, encouragement to attend groups, medication administration/education/monitoring, Q 15 min safety checks. Restraints/seclusion/emergency medication: N/A Justification of Continued Inpatient Treatment: Pt continues to require stabilization and medication adjustments and a safe and supportive environment.
[2019-07-19 20:00] VITALS: BP 110/64
[2019-07-19] MEDS: mirtazapine 15mg tablet PO SCH (20:56)
--- NOTE | 2019-07-20 03:24 | NUR ---
Nursing Progress Note: Legal hold:5250 Client on involuntary status for GD Report received from nurse with use of SBAR: ANÍBAL Almeida Why are they here: Pt admitted to [facility] for [facility] health on a 5150 for gravely disabled. Pt has not been eating or sleeping, and is religiously preoccupied, feels God has healed her. She has been unresponsive at times and at home, and held her wrists under hot water for several hours. Pt. needs to be reminded to attend to her daily needs and is unable to be maintained safely in the community. Pt has not been taking her meds for last 3 days, and reports S/I, but will not talk about a plan. She also has command A/EDWARDS. Assessment What has happened this shift: Patient laying in her bed awake at the beginning of shift. Patient pleasant and cooperative with all care. Endorses depression and denies SI, HI, A/VH. Upon assessment the patient was asked if she was able to explain why she was admitted to the unit and she stated, "yes but I would rather not." This automatic typewriter inspector explained understanding and the patient explained, "I'm just really embarrassed." Patient explained her discharge plan is to go back to living with her mother. She agreed to feeling safe on the unit and living with her mother. Patient has remained in her room throughout this shift. S/I, H/I: denies A/VH: denies Sleep: Prefer to sleep assessment ADL's: Independent Group attendance: no groups this shift Were meds taken: Yes Any med S/E: None observed or reported Mental Status Exam Appearance: Neat, clean, appropriate attire for the unit Eye contact: Good Behavior: cooperative, withdrawn, isolative to self Speech: Clear, soft, minimal Mood: depressed Affect: congruent to mood Thought process: Linear Thought Content: Wants to go home. Cognition: A&O X4 Insight: Poor Judgment: Poor to fair Interventions PRN's used: None Therapeutic interventions: 1:1 assessment, active listening, therapeutic conversation, encouragement to perform self-care, encouragement to attend groups, medication administration/education/monitoring, Q 15 min safety checks. Restraints/seclusion/emergency medication: N/A Justification of Continued Inpatient Treatment: Pt continues to require stabilization and medication adjustments and a safe and supportive environment.
[2019-07-20] MEDS: docusate sod 100mg capsule PO SCH (07:52)
[2019-07-20] MEDS: furosemide 40mg tablet PO SCH (07:52)
[2019-07-20] MEDS: potassium chloride 10mEq ER tablet PO SCH (07:52)
[2019-07-20] MEDS: venlafaxine XR 75mg capsule (Q24H) PO SCH (07:52)
[2019-07-20] MEDS: topiramate 100mg tablet PO SCH ×2 (07:52→21:47)
[2019-07-20] MEDS: pantoprazole 40mg Tablet.DR PO SCH (07:52)
[2019-07-20] MEDS: acetaminophen 325mg tablet PO PRN (07:53)
[2019-07-20 08:16] VITALS: BP 123/66
--- NOTE | 2019-07-20 12:20 | NUR ---
Nursing Progress Note: Legal hold:5250 Client on involuntary status for GD Report received from nurse with use of SBAR: Leticia RN Why are they here: Pt admitted to [facility] for Behavior[facility] health on a 5150 for gravely disabled. Pt has not been eating or sleeping, and is religiously preoccupied, feels God has healed her. She has been unresponsive at times and at home, and held her wrists under hot water for several hours. Pt. needs to be reminded to attend to her daily needs and is unable to be maintained safely in the community. Pt has not been taking her meds for last 3 days, and reports S/I, but will not talk about a plan. She also has command A/EDWARDS. Assessment What has happened this shift: Pt once again denied all symptoms today. Pt stated that she did not hear any voices yesterday or today and feels that the medication is working and doesn't need any further adjustment. Pt c/o 3/10 right low back pain before breakfast and was given prn Tylenol 650 mg at 0753 with good effect. S/I, H/I: Pt denies A/VH: Pt denies Sleep: Pt slept 7.75 hours per noc shift report ADL's: Independent Group attendance: Yes Were meds taken: Yes Any med S/E: None noted or reported Mental Status Exam Appearance: Clean, wearing street clothes, no makeup on Eye contact: Good Behavior: cooperative, withdrawn, isolative to self Speech: Clear, soft, minimal Mood: bland, denied symptoms Affect: blunted, depressed, constricted Thought process: Linear Thought Content: Feels the medication is right now since she is no longer hearing voices. Cognition: A&O X4 Insight: Poor Judgment: Poor to fair Interventions PRN's used: Tylenol 650 mg Therapeutic interventions: 1:1 assessment, active listening, therapeutic conversation, encouragement to express thoughts and feelings, encouragement to perform self-care, encouragement to attend groups, medication administration/education/monitoring, Q 15 min safety checks. Restraints/seclusion/emergency medication: N/A Justification of Continued Inpatient Treatment: Pt continues to require stabilization and medication adjustments and a safe and supportive environment.
--- NOTE | 2019-07-20 15:07 | NUR ---
Initial: patient is eating fair, PO intake up and down, at times patient eats 0-25% and others she is able to eat 75-100%. Per MD notes patient will do 3-5 fasting for advent reasons. She has lost weight since her last admission in April, -9% (17 lbs) by means of intentionally restricting meals. Nourishment room snacks are also offered to patient's in between meals. Will continue to follow. Recommend: 1. continue regular diet 2. encourage PO intake 3. bowel care as needed 4. weight per rx Addendum: 07/20/19 at [address] Amended: Links added.
[2019-07-20 19:49] VITALS: BP 107/71
[2019-07-20] MEDS: mirtazapine 15mg tablet PO SCH (21:46)
[2019-07-20] MEDS: zolpidem 5mg tablet PO SCH (21:47)
--- NOTE | 2019-07-21 02:10 | NUR ---
Nursing Progress Note: Legal hold:5250 Client on involuntary status for GD Report received from nurse with use of SBAR: ANÍBAL Sprague Why are they here: Pt admitted to [facility] for Behavior[facility] health on a 5150 for gravely disabled. Pt has not been eating or sleeping, and is religiously preoccupied, feels God has healed her. She has been unresponsive at times and at home, and held her wrists under hot water for several hours. Pt. needs to be reminded to attend to her daily needs and is unable to be maintained safely in the community. Pt has not been taking her meds for last 3 days, and reports S/I, but will not talk about a plan. She also has command A/EDWARDS. Assessment What has happened this shift: Patient laying in bed, reading a book, at the beginning of shift. Patient explained feeling ddepressed r/t to feeling home sick. Patient denies SI, HI, A/VH. She remains pleasant and cooperative with all care but does not feel like talking about why she was admitted to the unit because she feels embarrassed. Patient continues to isolate to herself, she ambulated the lagos briefly before going to sleep. S/I, H/I: denies A/VH: denies Sleep: Refer to sleep assessment ADL's: Independent Group attendance: no groups this shift Were meds taken: Yes Any med S/E: None observed or reported Mental Status Exam Appearance: Neat, clean, appropriate attire for the unit Eye contact: Good Behavior: cooperative, withdrawn, isolative to self Speech: Clear, soft, minimal Mood: depressed Affect: congruent to mood Thought process: Linear Thought Content: Wants to go home. Cognition: A&O X4 Insight: Poor Judgment: Poor to fair Interventions PRN's used: None Therapeutic interventions: 1:1 assessment, active listening, therapeutic conversation, encouragement to perform self-care, encouragement to attend groups, medication administration/education/monitoring, Q 15 min safety checks. Restraints/seclusion/emergency medication: N/A Justification of Continued Inpatient Treatment: Pt continues to require stabilization and medication adjustments and a safe and supportive environment.
[2019-07-21] MEDS: furosemide 40mg tablet PO SCH (07:39)
[2019-07-21] MEDS: potassium chloride 10mEq ER tablet PO SCH (07:39)
[2019-07-21] MEDS: topiramate 100mg tablet PO SCH ×2 (07:39→20:49)
[2019-07-21 07:40] VITALS: BP 111/85
[2019-07-21] MEDS: venlafaxine XR 75mg capsule (Q24H) PO SCH (07:40)
[2019-07-21] MEDS: pantoprazole 40mg Tablet.DR PO SCH (07:40)
[2019-07-21] MEDS: docusate sod 100mg capsule PO SCH (07:40)
[2019-07-21] MEDS: acetaminophen 325mg tablet PO PRN (09:26)
[2019-07-21] MEDS: clonazePAM 1mg tablet PO PRN (10:54)
--- NOTE | 2019-07-21 17:08 | NUR ---
Nursing Progress Note: Legal hold: 5250 Client on involuntary status for GD Report received from ANÍBAL Augustine Why are they here: Pt admitted to [facility] for Behavior[facility] health on a 5150 for gravely disabled. Pt has not been eating or sleeping, and is religiously preoccupied, feels God has healed her. She has been unresponsive at times and at home, and held her wrists under hot water for several hours. Pt. needs to be reminded to attend to her daily needs and is unable to be maintained safely in the community. Pt has not been taking her meds for last 3 days, and reports S/I, but will not talk about a plan. She also has command A/EDWARDS. Assessment What has happened this shift: Pt sleeping at change of shift. She indicated she slept well. When asked about depression she shared, "not really depressed." Pt reports auditory hallucinations. She indicated the voices want her to break up with her boyfriend. She shared the voices tell her that her boyfriend is smart and she is stupid. Reoriented and redirected pt to recognize her hallucinations and not base her choices on these hallucinations. For lunch, pt consumed 100% of her protein, but no carbohydrates. Pt attended AM group. Pt c/o 4/10 back pain, given Tylenol 650 mg with good effect. Pt c/o increased anxiety at 1050, given Klonopin 1 mg with good effect. S/I, H/I: Denies A/VH: Pt reports auditory hallucinations, but denies VH Sleep: Pt reported that she slept OK during the night ADL's: Independent Group attendance: AM group Were meds taken: Yes Any med S/E: None noted or reported Mental Status Exam Appearance: Neat and clean Eye contact: Direct Behavior: Cooperative Speech: Normal rate and rhythm Mood: Pleasant Affect: Constricted Thought process: Linear Thought Content: Voices are telling her to break up with her boyfriend. Cognition: A&O X4 Insight: Poor Judgment: Poor Interventions PRN's used: Tylenol 650 mg, Klonopin 1 mg Therapeutic interventions: 1:1 assessment, active listening, therapeutic conversation, encouragement to perform self-care, encouragement to attend groups, medication administration/education/monitoring, Q 15 min safety checks. Restraints/seclusion/emergency medication: N/A Justification of Continued Inpatient Treatment: Pt continues to require stabilization and medication adjustments and a safe and supportive environment.
[2019-07-21 19:00] VITALS: BP 109/76
[2019-07-21] MEDS: zolpidem 5mg tablet PO SCH (20:49)
[2019-07-21] MEDS: mirtazapine 15mg tablet PO SCH (20:49)
--- NOTE | 2019-07-22 03:35 | NUR ---
Nursing Progress Note: Legal hold:5250 Client on involuntary status for GD Report received from nurse with use of SBAR: ANÍBAL Sprague Why are they here: Pt admitted to [facility] for Behavior[facility] health on a 5150 for gravely disabled. Pt has not been eating or sleeping, and is religiously preoccupied, feels God has healed her. She has been unresponsive at times and at home, and held her wrists under hot water for several hours. Pt. needs to be reminded to attend to her daily needs and is unable to be maintained safely in the community. Pt has not been taking her meds for last 3 days, and reports S/I, but will not talk about a plan. She also has command A/EDWARDS. Assessment What has happened this shift: Patient talking on the phone at the beginning of shift. Patient is pleasant and cooperative. Continues to isolate to herself and remains in her room through the shift. Patient continues to deny SI and HI. No mention of A/VH but didn't talk much as she continued to talk on the phone while this policy writer sales was in the room with her. Discharge plan to go back home with her mother. S/I, H/I: denies A/VH: denies Sleep: Refer to sleep assessment ADL's: Independent Group attendance: no groups this shift Were meds taken: Yes Any med S/E: None observed or reported Mental Status Exam Appearance: Neat, clean, appropriate attire for the unit Eye contact: Good Behavior: cooperative, withdrawn, isolative to self Speech: Clear, soft, minimal Mood: depressed, flat Affect: congruent to mood Thought process: Linear Thought Content: Wants to go home. Cognition: A&O X4 Insight: Poor Judgment: Poor to fair Interventions PRN's used: None Therapeutic interventions: 1:1 assessment, active listening, therapeutic conversation, encouragement to perform self-care, encouragement to attend groups, medication administration/education/monitoring, Q 15 min safety checks. Restraints/seclusion/emergency medication: N/A Justification of Continued Inpatient Treatment: Pt continues to require stabilization and medication adjustments and a safe and supportive environment.
[2019-07-22] MEDS: docusate sod 100mg capsule PO SCH (07:57)
[2019-07-22] MEDS: pantoprazole 40mg Tablet.DR PO SCH (07:57)
[2019-07-22] MEDS: topiramate 100mg tablet PO SCH ×2 (07:57→20:29)
[2019-07-22] MEDS: potassium chloride 10mEq ER tablet PO SCH (07:58)
[2019-07-22] MEDS: furosemide 40mg tablet PO SCH (07:58)
[2019-07-22] MEDS: venlafaxine XR 75mg capsule (Q24H) PO SCH (07:58)
[2019-07-22 08:00] VITALS: BP 97/61
[2019-07-22] MEDS: clonazePAM 1mg tablet PO PRN (09:25)
[2019-07-22] MEDS ORDERED: traMADol 50MG tablet PO PRN (15:35)
[2019-07-22] MEDS ORDERED: traMADol 50MG tablet PO ONE (15:35)
--- NOTE | 2019-07-22 17:55 | NUR ---
Nursing Progress Note: Legal hold: 5250 Client on involuntary status for GD Report received from ANÍBAL Augustine Why are they here: Pt admitted to [facility] for Behavioral health on a 5150 for gravely disabled. Pt has not been eating or sleeping, and is religiously preoccupied, feels God has healed her. She has been unresponsive at times and at home, and held her wrists under hot water for several hours. Pt. needs to be reminded to attend to her daily needs and is unable to be maintained safely in the community. Pt has not been taking her meds for last 3 days, and reports S/I, but will not talk about a plan. She also has command A/EDWARDS. Assessment What has happened this shift: Pt sleeping at change of shift. This AM, pt reported feeling tired, but stated she slept OK. She was compliant with medication administration and cooperative with assessment. She shared she is a little depressed. Denied SI and VH. She said the voices, AH, are still telling her to break up with her boyfriend. She indicated the headphones help with her voices. Pt given Tylenol for back pain, which did not provide adequate relief. Ultram given for pain relief. Pt c/o increased anxiety at 0930, given Klonopin 1 mg with good effect. S/I, H/I: Denies A/VH: Pt reports auditory hallucinations, but denies VH Sleep: Pt reported that she slept OK ADL's: Independent Group attendance: AM group Were meds taken: Yes Any med S/E: None noted or reported Mental Status Exam Appearance: Neat and clean Eye contact: Direct Behavior: Cooperative, Isolates Speech: Normal rate and rhythm Mood: Depressed Affect: Constricted Thought process: Linear and connected Thought Content: Voices are telling her to break up with her boyfriend. Cognition: A&O X4 Insight: Poor Judgment: Poor Interventions PRN's used: Tylenol 650 mg, Klonopin 1 mg, Ultram 50 mg Therapeutic interventions: 1:1 assessment, active listening, therapeutic conversation, encouragement to perform self-care, encouragement to attend groups, medication administration/education/monitoring, Q 15 min safety checks. Restraints/seclusion/emergency medication: N/A Justification of Continued Inpatient Treatment: Pt continues to require stabilization and medication adjustments and a safe and supportive environment.
[2019-07-22] MEDS: hydrOXYzine 25 MG tablet PO PRN (19:35)
[2019-07-22 19:51] VITALS: BP 108/67
[2019-07-22] MEDS: mirtazapine 15mg tablet PO SCH (20:29)
[2019-07-22] MEDS: zolpidem 5mg tablet PO SCH (20:29)
--- NOTE | 2019-07-22 22:11 | NUR ---
Nursing Progress Note: Legal hold:5250 Client on involuntary status for GD Report received from nurse with use of SBAR: ANÍBAL Kelly Why are they here: Pt admitted to [place] for Behavioral health on a 5150 for gravely disabled. Pt has not been eating or sleeping, and is religiously preoccupied, feels God has healed her. She has been unresponsive at times and at home, and held her wrists under hot water for several hours. Pt. needs to be reminded to attend to her daily needs and is unable to be maintained safely in the community. Pt has not been taking her meds for last 3 days, and reports S/I, but will not talk about a plan. She also has command A/EDWARDS. Assessment What has happened this shift: Patient was in her room at change of shift. Patient was cooperative and friendly during 1:1, but mostly isolated herself to her room most of the night. Patient continues to deny SI and HI. Pt reports that she hears voices telling her to dump her boyfriend. reports that she is looking forward to returning home to her mom. S/I, H/I: denies A/VH: voices telling her to dump her boyfriend. Sleep: Refer to sleep assessment ADL's: Independent Group attendance: no Were meds taken: Yes Any med S/E: None observed or reported Mental Status Exam Appearance: Neat, clean, appropriate attire for the unit Eye contact: Good Behavior: cooperative, withdrawn, isolative to self Speech: Clear, soft, minimal Mood: depressed, flat Affect: congruent to mood Thought process: Linear Thought Content: Wants to go home. Cognition: A&O X4 Insight: Poor Judgment: Poor to fair Interventions PRN's used: atarax Therapeutic interventions: 1:1 assessment, active listening, therapeutic conversation, encouragement to perform self-care, encouragement to attend groups, medication administration/education/monitoring, Q 15 min safety checks. Restraints/seclusion/emergency medication: N/A Justification of Continued Inpatient Treatment: Pt continues to require stabilization and medication adjustments and a safe and supportive environment.
[2019-07-23 08:00] VITALS: BP 116/72
[2019-07-23] MEDS: topiramate 100mg tablet PO SCH ×2 (08:17→20:28)
[2019-07-23] MEDS: pantoprazole 40mg Tablet.DR PO SCH (08:19)
[2019-07-23] MEDS: venlafaxine XR 75mg capsule (Q24H) PO SCH (08:19)
[2019-07-23] MEDS: potassium chloride 10mEq ER tablet PO SCH (08:19)
[2019-07-23] MEDS: docusate sod 100mg capsule PO SCH (08:20)
[2019-07-23] MEDS: furosemide 40mg tablet PO SCH (08:20)
[2019-07-23] MEDS: hydrOXYzine 25 MG tablet PO PRN ×2 (11:08→22:33)
--- NOTE | 2019-07-23 14:33 | NUR ---
SS attempted to coordinate pt's f/u care with [facility] via t/c, left vm w/the appointment desk requesting a rt t/c to coordinate pt's f/u w/outpt provider. Kadie Nolasco [facility] # [id number] Addendum: 07/23/19 at 1509 by Kadie LUDWIG Amended: Links added.
--- NOTE | 2019-07-23 14:47 | NUR ---
reassessment: Pt PO 50% avg meals does continue to fluctuate. Not including snacks from nourishment room. [facility] 07/22. Will continue to monitor. Recommend: 1. continue regular diet 2. encourage PO intake 3. bowel care as needed 4. weight per rx Addendum: 07/23/19 at [address] Amended: Links added.
--- NOTE | 2019-07-23 15:28 | NUR ---
OZIEL had t/c [facility] TAD office, per t/c pt is scheduled to meet [facility] CM tomorrow @ 1:00 PM Addendum: 07/23/19 at 1529 by Kadie Nolasco Amended: Links added.
[2019-07-23] MEDS: clonazePAM 1mg tablet PO PRN (16:26)
--- NOTE | 2019-07-23 16:30 | NUR ---
Nursing Progress Note: Legal hold: 5250 Client on involuntary status for GD Report received from ANÍBAL Augustine Why are they here: Pt admitted to [place] for Behavioral health on a 5150 for gravely disabled. Pt has not been eating or sleeping, and is religiously preoccupied, feels God has healed her. She has been unresponsive at times and at home, and held her wrists under hot water for several hours. Pt. needs to be reminded to attend to her daily needs and is unable to be maintained safely in the community. Pt has not been taking her meds for last 3 days, and reports S/I, but will not talk about a plan. She also has command A/EDWARDS. Assessment What has happened this shift: Pt sleeping at change of shift and up for breakfast. Patient was doing better this morning but did receive Atarax later morning for anxiety. Patient denies SI but is depressed and anxious. RN gave patient Clonazepam for anxiety in late afternoon. Patient stated her voices are really bad at this time. RN asked what she hears them saying. Patient stated she can't really understand them but when she can hear them they talk negatively about her boyfriend. Patient getting the headphones on as this helps her with the voices. S/I, H/I: Denies A/VH: Pt reports auditory hallucinations, but denies VH Sleep: Pt has laid down a couple of times today. ADL's: Independent Group attendance: both groups Were meds taken: Yes Any med S/E: None noted or reported Mental Status Exam Appearance: Neat and clean Eye contact: Direct Behavior: Cooperative, Isolates Speech: Normal rate and rhythm Mood: Depressed Affect: Flat Thought process: Linear Thought Content: getting rid of the voices Cognition: A&O X4 Insight: Poor Judgment: Poor Interventions PRN's used: Atarax 50 mg, Klonopin 1 mg, Ultram 50 mg Therapeutic interventions: 1:1 assessment, active listening, therapeutic conversation, encouragement to perform self-care, encouragement to attend groups, medication administration/education/monitoring, Q 15 min safety checks. Restraints/seclusion/emergency medication: N/A Justification of Continued Inpatient Treatment: Pt continues to require stabilization and medication adjustments and a safe and supportive environment.
[2019-07-23 20:00] VITALS: BP 109/63
[2019-07-23] MEDS: mirtazapine 15mg tablet PO SCH (20:28)
[2019-07-23] MEDS: zolpidem 5mg tablet PO SCH (20:28)
--- NOTE | 2019-07-24 00:41 | NUR ---
Nursing Progress Note: Legal hold:5250 Client on involuntary status for GD Report received from nurse with use of SBAR: ANÍBAL Kelly Why are they here: Pt admitted to [place] for Behavioral health on a 5150 for gravely disabled. Pt has not been eating or sleeping, and is religiously preoccupied, feels God has healed her. She has been unresponsive at times and at home, and held her wrists under hot water for several hours. Pt. needs to be reminded to attend to her daily needs and is unable to be maintained safely in the community. Pt has not been taking her meds for last 3 days, and reports S/I, but will not talk about a plan. She also has command A/EDWARDS. Assessment What has happened this shift: Patient was in her room at change of shift. Patient was cooperative and friendly during 1:1, but mostly isolated herself to her room most of the night with headphones, which she reports help her block out voices. Pt is excited to go home and stated that she was told she could probably go home in 1-2 days. pt is still having anxiety related to the voices about her boyfriend. S/I, H/I: denies A/VH: voices telling her to dump her boyfriend. Sleep: Refer to sleep assessment ADL's: Independent Group attendance: no Were meds taken: Yes Any med S/E: None observed or reported Mental Status Exam Appearance: Neat, clean, appropriate attire for the unit Eye contact: Good Behavior: cooperative, withdrawn, isolative to self Speech: Clear, soft, minimal Mood: flat Affect: congruent to mood Thought process: Linear Thought Content: Wants to go home. Cognition: A&O X4 Insight: Poor Judgment: Poor to fair Interventions PRN's used: atarax Therapeutic interventions: 1:1 assessment, active listening, therapeutic conversation, encouragement to perform self-care, encouragement to attend groups, medication administration/education/monitoring, Q 15 min safety checks. Restraints/seclusion/emergency medication: N/A Justification of Continued Inpatient Treatment: Pt continues to require stabilization and medication adjustments and a safe and supportive environment.
[2019-07-24 08:00] VITALS: BP 126/75
[2019-07-24] MEDS: furosemide 40mg tablet PO SCH (08:22)
[2019-07-24] MEDS: venlafaxine XR 75mg capsule (Q24H) PO SCH (08:24)
[2019-07-24] MEDS: docusate sod 100mg capsule PO SCH (08:24)
[2019-07-24] MEDS: potassium chloride 10mEq ER tablet PO SCH (08:24)
[2019-07-24] MEDS: topiramate 100mg tablet PO SCH (08:25)
[2019-07-24] MEDS: pantoprazole 40mg Tablet.DR PO SCH (08:25)
[2019-07-24] MEDS: hydrOXYzine 25 MG tablet PO PRN (11:23)
[2019-07-24] MEDS ORDERED: TOP100T PO (11:46)
[2019-07-24] MEDS ORDERED: HYDR50TA65 PO (11:46)
[2019-07-24] MEDS ORDERED: PERP16TA5 PO (11:46)
[2019-07-24] MEDS ORDERED: CLON2TAB12 PO (11:46)
[2019-07-24] MEDS ORDERED: ZOLP10TA PO (11:46)
[2019-07-24] MEDS ORDERED: TRAM50TA2 PO (11:46)
[2019-07-24] MEDS ORDERED: VENL150C58 PO (11:46)
[2019-07-24] MEDS ORDERED: MIRT45TA83 PO (11:46)
--- NOTE | 2019-07-24 13:08 | NUR ---
Discharge Note: Patient was given discharge instructions and information on all her medications. Patient verbalized understanding. All questions were answered. Patient denies depression and suicidal ideation. Patient does not smoke and does not need nicotine replacement. Patient is calm and cooperative and looking forward to going home as patient lives with her son. Patient also has a daughter, son-in-law and 4 month old grandchild who she is looking forward to see. [facility] city bus driver awaiting patient in lobby. Adela Briggs walking patient to lobby with all her belongings. Patient going to [facility] to meet with her trimming caser and they will make appointments at that time with her therapist and doctor at [facility].
== END 2019-07-24 13:08 | disposition home or self-care (01) | DRG 885 ==
LOC: ADULT MH 13:00
PROVIDERS: ADMIT Psychiatry & Neurology Psychiatry; ATTEND Psychiatry & Neurology Psychiatry
DX: F20.0 Paranoid schizophrenia (principal); R45.851 Suicidal ideations; E87.6 Hypokalemia; F17.200 Nicotine dependence, unspecified, uncomplicated; I10 Essential (primary) hypertension; M54.5 Low back pain; F43.12 Post-traumatic stress disorder, chronic; F32.9 Major depressive disorder, single episode, unspecified; K21.9 Gastro-esophageal reflux disease without esophagitis; Z79.899 Other long term (current) drug therapy; Z81.8 Family history of other mental and behavioral disorders; Z90.721 Acquired absence of ovaries, unilateral; Z23 Encounter for immunization; Z71.6 Tobacco abuse counseling
CPT/HCPCS: 36415; 80053; 80061; 80305; 80320; 81001; 81025; 84443; 85025; 87081; 87088; Q0175; Q2037; Z7610

== ENCOUNTER 2021-06-14 15:31 | Emergency (ER) | payer MEDICARE, MEDICAID ==
[~2021-06-14] VITALS: Ht 165.1 cm; Wt 84.5 kg
[~2021-06-14 15:31] MED LIST changes: +HYDR50TA65 PO; -MIRT30TA8 PO; +MIRT45TA83 PO; +PERP16TA5 PO; -PERP8TAB6 PO; +ZOLP10TA PO; -[UNRECOGNIZED DRUG - CODE] PO
[2021-06-14] MEDS ORDERED: OLAN10TA3 PO (17:00)
--- NOTE | 2021-06-14 17:21 | NUR ---
Patient was evaluated and treated by the PA only. Disch to home with Mother driving. Patient in no distress.
[2021-06-14 17:23] VITALS: BP 121/78
[2021-06-15] MEDS ORDERED: IBUP-1984 PO (21:40)
[2021-06-15] MEDS ORDERED: TRAM50TA2 PO (21:40)
[2021-06-15] MEDS ORDERED: PERP8TAB6 PO (21:40)
[2021-06-15] MEDS ORDERED: prevagen PO (21:40)
[2021-06-15] MEDS ORDERED: QUET-1 PO (21:40)
[2021-06-15] MEDS ORDERED: ZOLP12.543 PO (21:40)
[2021-06-15] MEDS ORDERED: BARIATRIC FUSION VIT PO (21:42)
[2021-06-15] MEDS ORDERED: FLUO20CA39 PO (21:47)
[2021-06-15] MEDS ORDERED: TOPI50TA PO (21:47)
[2021-06-15] MEDS ORDERED: buprenorphine PO (21:47)
[2021-06-15] MEDS ORDERED: BUPR-94 PO (21:47)
[2021-06-15] MEDS ORDERED: CLON-571 PO (21:55)
[2021-06-15] MEDS ORDERED: CYCL-394 PO (21:55)
== END 2021-06-14 17:27 | disposition home or self-care (01) ==
LOC: ER 15:32
DX: F20.9 Schizophrenia, unspecified (principal); F41.9 Anxiety disorder, unspecified; F32.9 Major depressive disorder, single episode, unspecified; Z98.890 Other specified postprocedural states; Z88.6 Allergy status to analgesic agent; Z88.8 Allergy status to other drugs, medicaments and biological substances; Z79.899 Other long term (current) drug therapy
CPT/HCPCS: 99283

== ENCOUNTER 2021-06-15 19:11 | Emergency (ER) | payer MEDICARE, MEDICAID ==
[~2021-06-15] VITALS: Ht 165.1 cm; Wt 81.8 kg
[~2021-06-15 19:11] MED LIST changes: +OLAN10TA3 PO
[2021-06-15 20:47] LABS: BASOPHILS # (AUTO) 0.1 X10'3 (0-0.2); EOSINOPHILS # (AUTO) 0.2 X10'3 (0-0.9); EOSINOPHILS % (AUTO) 3.3 % (0-6); HEMATOCRIT 36.5 % (35.0-45.0); HEMOGLOBIN 12.3 g/dl (12.0-16.0); LYMPHOCYTES # (AUTO) 2.4 X10'3 (1.1-4.8); LYMPHOCYTES % (AUTO) 38.3 % (21-51); MEAN CORPUSCULAR HEMOGLOBIN 30.2 PG (27.0-31.0); MEAN CORPUSCULAR HGB CONC 33.7 g/dL (33.0-36.5); MEAN CORPUSCULAR VOLUME 89.8 FL (78-98); MEAN PLATELET VOLUME 9.4 FL (7.4-10.4); MONOCYTES # (AUTO) 0.4 X10'3 (0-0.9); MONOCYTES % (AUTO) 6.7 % (2-12); NEUTROPHILS # (AUTO) 3.2 X10'3 (1.8-7.7); NEUTROPHILS % (AUTO) 50.7 % (42-75); PLATELET COUNT 237 X10'3 (140-440); RED BLOOD COUNT 4.06 X10'6 (4.20-5.60); RED CELL DISTRIBUTION WIDTH 14.3 % (11.5-14.5); WHITE BLOOD COUNT 6.3 X10'3 (4.5-11.0)
[2021-06-15 20:55] LABS: URINE HCG NEGATIVE (NEG)
[2021-06-15 21:00] LABS: ALANINE AMINOTRANSFERASE 33 U/L (12-78); ALBUMIN 3.9 G/DL (3.4-5.0); ALBUMIN/GLOBULIN RATIO 1.3 (1.1-1.5); ALKALINE PHOSPHATASE 113 IU/L (46-116); ANION GAP 10 (8-16); ASPARTATE AMINO TRANSFERASE 26 U/L (10-37); BILIRUBIN,TOTAL 0.2 MG/DL (0.1-1.0); BLOOD UREA NITROGEN 13 MG/DL (7-18); BUN/CREATININE RATIO 11.5 (6.6-38.0); CALCIUM 8.8 MG/DL (8.5-10.1); CHLORIDE 109 MMOL/L (99-107); CREATININE 1.13 MG/DL (0.40-0.90); GLUCOSE 81 MG/DL (70-104); POTASSIUM 3.6 MMOL/L (3.5-5.1); SODIUM 144 MMOL/L (135-145); TOTAL CARBON DIOXIDE 25.1 MMOL/L (24-32); eGFR 53 ML/MIN
[2021-06-15 21:08] LABS: ETHANOL < 0.010 GM/DL (0.0-0.010)
[2021-06-15 21:09] LABS: URINE AMPHETAMINE SCREEN NEGATIVE (Neg); URINE BARBITUATE SCREEN NEGATIVE (Neg); URINE BENZODIAZEPINES SCREEN NEGATIVE (Neg); URINE CANNABINOID SCREEN NEGATIVE (Neg); URINE COCAINE SCREEN NEGATIVE (Neg); URINE METHADONE SCREEN NEGATIVE (Neg); URINE OPIATE SCREEN NEGATIVE (Neg); URINE PHENCYCLIDINE SCREEN NEGATIVE (Neg)
[2021-06-15 21:10] LABS: ACETAMINOPHEN < 2.0 UG/ML (10-30)
--- NOTE | 2021-06-15 21:10 | NUR ---
The patient was brought back to the ER by her mother after continuing to have very bothersome voices. Earlier today she had her medicines out of their bottles to overdose but then put them back in the bottles. The patient is a patient of [facility] and she has been medication and treatment compliant. She reports the voices have been increasingly bothersome. She reports the voices wake up every couple of hours. She stated that they dont tell her to harm herself but continually say mean things to her. She believes that "he" meaning her male voice has control over her bowel and bladder. She has been feeling very irritable 2nd to the voices and at times she talks and yells back at them. She lives with her mother and her 21 year old son and is on SSI. Her mother was very loving and supportive of her.
[2021-06-15 21:22] LABS: CLARITY,URINE CLEAR (Clear); COLOR,URINE YELLOW (Yellow); GLUCOSE, URINE NEGATIVE (Neg); KETONES,URINE NEGATIVE (Neg); LEUKOCYTE ESTERASE ,URINE NEGATIVE (Neg); NITRITES, URINE NEGATIVE (Neg); OCCULT BLOOD,URINE NEGATIVE (Neg); PH,URINE 6.5 (4.8-8.0); PROTEIN,URINE NEGATIVE (Neg); UA COLLECTION TYPE CLN CATCH MIDSTREAM; UROBILINOGEN,URINE 0.2 E.U/dL (0.2-1.0)
[2021-06-15] MEDS ORDERED: ZOLP12.543 PO (21:40)
[2021-06-15] MEDS ORDERED: TRAM50TA2 PO (21:40)
[2021-06-15] MEDS ORDERED: IBUP-1984 PO (21:40)
[2021-06-15] MEDS ORDERED: prevagen PO (21:40)
[2021-06-15] MEDS ORDERED: PERP8TAB6 PO (21:40)
[2021-06-15] MEDS ORDERED: QUET-1 PO (21:40)
[2021-06-15] MEDS ORDERED: BARIATRIC FUSION VIT PO (21:42)
[2021-06-15] MEDS ORDERED: FLUO20CA39 PO (21:47)
[2021-06-15] MEDS ORDERED: buprenorphine PO (21:47)
[2021-06-15] MEDS ORDERED: TOPI50TA PO (21:47)
[2021-06-15] MEDS ORDERED: BUPR-94 PO (21:47)
[2021-06-15] MEDS ORDERED: CYCL-394 PO (21:55)
[2021-06-15] MEDS ORDERED: CLON-571 PO (21:55)
[2021-06-15] MEDS ORDERED: olanzapine 10mg tablet PO SCH (22:18)
[2021-06-15] MEDS ORDERED: cyclobenzaprine 10mg tablet PO SCH (22:18)
[2021-06-15] MEDS ORDERED: quetiapine 100mg tablet PO SCH (22:19)
[2021-06-15] MEDS ORDERED: zolpidem 5mg tablet PO SCH (22:23)
[2021-06-15] MEDS: BUPRENORPHINE 2 MG PO SCH (22:25)
[2021-06-15] MEDS ORDERED: mirtazapine 15mg tablet PO SCH (22:27)
[2021-06-15] MEDS: traMADol 50MG tablet PO SCH (22:38)
[2021-06-15] MEDS: topiramate 25mg tablet PO SCH (22:38)
[2021-06-15] MEDS: perphenazine 8mg tablets PO SCH (22:48)
--- NOTE | 2021-06-15 22:53 | NUR ---
The patient is resting on her bed. She took her HS medications
--- NOTE | 2021-06-16 00:42 | NUR ---
The patient appears to be sleeping
--- NOTE | 2021-06-16 02:29 | NUR ---
The patient appears to be sleeping
--- NOTE | 2021-06-16 03:14 | NUR ---
The patient was awakened by female peer and got up to use the bathroom
--- NOTE | 2021-06-16 05:20 | NUR ---
The patient being kept awake by male peer but she is polite and pleasant
--- NOTE | 2021-06-16 06:30 | NUR ---
care transfered, pt evaluated for changes. reports improvement in mood but she still hears the voices and they are still intense. pt is comfortable and had no requests at this time
[2021-06-16] MEDS ORDERED: pantoprazole 40mg Tablet.DR PO SCH (07:30)
--- NOTE | 2021-06-16 07:38 | NUR ---
PACKET FAXED TO [facility]
[2021-06-16] MEDS ORDERED: PREVAGEN PO SCH (08:00)
[2021-06-16] MEDS ORDERED: ibuprofen tablet 400 MG TABLET PO SCH (08:00)
[2021-06-16] MEDS ORDERED: buPROPion SR 150mg tablet PO SCH (08:00)
[2021-06-16] MEDS ORDERED: FLUoxetine 20mg capsule PO SCH (08:00)
--- NOTE | 2021-06-16 08:00 | NUR ---
mother brought pts bupnorphine in which was brought to pharmacy to be counted and secured. pt has several meds from home which pharmacy sent down for morning med pass. pt took am meds with no resistance and was pleasant with no complaints.
[2021-06-16] MEDS: perphenazine 8mg tablets PO SCH (08:11)
[2021-06-16] MEDS: traMADol 50MG tablet PO SCH (08:12)
[2021-06-16] MEDS: topiramate 25mg tablet PO SCH (08:13)
[2021-06-16] MEDS: BUPRENORPHINE 2 MG PO SCH ×2 (08:14→13:32)
--- NOTE | 2021-06-16 10:00 | NUR ---
mental health evalualor is in with patient and discussing possible options for patient placement. originally pt was gonig to be placed inpatient psych but mhe now believes she would [facility] well at [facility]' the patient agrees and isaurae is working on setting up the transfer
--- NOTE | 2021-06-16 12:48 | NUR ---
pt on phone getting medication sign offs for crisis center from her doctors office. xray arrived to take chest xray and [facility] gave transport estimate of 3pm to bring pt to crisis center.
--- NOTE | 2021-06-16 15:45 | NUR ---
pt contacted pain clinic for signed note to take to crisis center for pain medications. mother brought note and all home medications to the hospital and the pt is awaiting transport. ETA [id number]
--- NOTE | 2021-06-16 16:30 | NUR ---
pt changed into regular clothing and returned scrubs. vitals taken and discharge vitals taken, discharge information given. awaiting transportation
[2021-06-16 16:37] VITALS: BP 112/75
[2021-06-16] MEDS ORDERED: clonazePAM 1mg tablet PO SCH (21:00)
== END 2021-06-16 16:40 ==
LOC: ER 19:12
DX: R45.851 Suicidal ideations (principal); Z20.822 Contact with and (suspected) exposure to COVID-19; F41.9 Anxiety disorder, unspecified; F32.9 Major depressive disorder, single episode, unspecified; F20.9 Schizophrenia, unspecified; Z98.890 Other specified postprocedural states; Z88.6 Allergy status to analgesic agent; Z88.8 Allergy status to other drugs, medicaments and biological substances; Z79.899 Other long term (current) drug therapy
CPT/HCPCS: 36415; 71045; 80053; 80305; 80320; 80329; 81003; 81025; 84443; 85025; 87635; 99285; C9803; Q0175

== ENCOUNTER 2021-10-27 15:12 | Emergency (ER) | payer MEDICARE, MEDICAID ==
[~2021-10-27] VITALS: Ht 165.1 cm; Wt 75.0 kg
[~2021-10-27 15:12] MED LIST changes: +BARIATRIC FUSION VIT PO; +BUPR-94 PO; +CLON-571 PO; -CLON2TAB12 PO; +CYCL-394 PO; +FLUO20CA39 PO; -FURO40TA4 PO; -HYDR50TA65 PO; -PERP16TA5 PO; +PERP8TAB6 PO; -POTA10CA44 PO; +QUET-1 PO; -TOP100T PO; +TOPI50TA PO; -VENL150C58 PO; -ZOLP10TA PO; +ZOLP12.543 PO; +buprenorphine PO; +prevagen PO
[2021-10-27 15:20] VITALS: BP 111/80
== END 2021-10-27 15:44 | disposition home or self-care (01) ==
LOC: ER 15:13
DX: R44.0 Auditory hallucinations (principal); F41.9 Anxiety disorder, unspecified; F32.9 Major depressive disorder, single episode, unspecified; Z88.8 Allergy status to other drugs, medicaments and biological substances; Z91.51 Personal history of suicidal behavior; Z88.5 Allergy status to narcotic agent; Z79.899 Other long term (current) drug therapy
CPT/HCPCS: 99281

== ENCOUNTER 2021-11-15 16:35 | Emergency (ER) | payer MEDICARE, MEDICAID ==
[~2021-11-15] VITALS: Ht 165.1 cm; Wt 74.0 kg
[2021-11-15 16:58] VITALS: BP 134/79
[2021-11-15] MEDS ORDERED: LORazepam 2 mg/ml vial IM ONE (17:45)
[2021-11-15] MEDS ORDERED: diphenhydrAMINE 50 mg/ml inj IM ONE (17:45)
[2021-11-15] MEDS ORDERED: haloperidol lactate 5mg/ml inj IM ONE ×2 (17:45→18:25)
--- NOTE | 2021-11-15 17:51 | NUR ---
PT STATES, NO HARM TO SELF OR OTHERS. HEARING VOICES THAT WANT TO HARM PT . PT STATES, " HE ELECTRICUTS HER LOWER EXT.
[2021-11-15] MEDS ORDERED: DIPH50CA39 PO (18:16)
[2021-11-15 18:21] LABS: URINE AMPHETAMINE SCREEN NEGATIVE (Neg); URINE BARBITUATE SCREEN NEGATIVE (Neg); URINE BENZODIAZEPINES SCREEN NEGATIVE (Neg); URINE CANNABINOID SCREEN NEGATIVE (Neg); URINE COCAINE SCREEN NEGATIVE (Neg); URINE METHADONE SCREEN NEGATIVE (Neg); URINE OPIATE SCREEN NEGATIVE (Neg); URINE PHENCYCLIDINE SCREEN NEGATIVE (Neg)
[2021-11-15] MEDS ORDERED: LORazepam 1 MG tablet PO ONE (18:25)
[2021-11-15] MEDS ORDERED: diphenhydrAMINE 25mg capsule PO ONE (18:35)
[2021-11-15 18:43] LABS: BASOPHILS % (AUTO) 0.7 % (0-1); EOSINOPHILS % (AUTO) 0.6 % (0-6); HEMATOCRIT 44.7 % (35.0-45.0); HEMOGLOBIN 14.7 g/dl (12.0-16.0); LYMPHOCYTES # (AUTO) 1.6 X10'3 (1.1-4.8); LYMPHOCYTES % (AUTO) 30.9 % (21-51); MEAN CORPUSCULAR HEMOGLOBIN 29.5 PG (27.0-31.0); MEAN CORPUSCULAR HGB CONC 32.8 g/dL (33.0-36.5); MEAN CORPUSCULAR VOLUME 89.8 FL (78-98); MEAN PLATELET VOLUME 9.3 FL (7.4-10.4); MONOCYTES # (AUTO) 0.3 X10'3 (0-0.9); MONOCYTES % (AUTO) 5.8 % (2-12); NEUTROPHILS # (AUTO) 3.2 X10'3 (1.8-7.7); PLATELET COUNT 242 X10'3 (140-440); RED BLOOD COUNT 4.98 X10'6 (4.20-5.60); RED CELL DISTRIBUTION WIDTH 16.1 % (11.5-14.5); WHITE BLOOD COUNT 5.2 X10'3 (4.5-11.0)
[2021-11-15 18:59] LABS: ALANINE AMINOTRANSFERASE 27 U/L (12-78); ALBUMIN 3.9 G/DL (3.4-5.0); ALBUMIN/GLOBULIN RATIO 1.3 (1.1-1.5); ALKALINE PHOSPHATASE 77 IU/L (46-116); ANION GAP 12 (8-16); ASPARTATE AMINO TRANSFERASE 20 U/L (10-37); BILIRUBIN,TOTAL 0.2 MG/DL (0.1-1.0); BLOOD UREA NITROGEN 10 MG/DL (7-18); BUN/CREATININE RATIO 13.2 (6.6-38.0); CHLORIDE 106 MMOL/L (99-107); CREATININE 0.76 MG/DL (0.40-0.90); GLUCOSE 95 MG/DL (70-104); POTASSIUM 3.7 MMOL/L (3.5-5.1); SODIUM 142 MMOL/L (135-145); TOTAL CARBON DIOXIDE 24.2 MMOL/L (24-32); eGFR 83 ML/MIN
== END 2021-11-15 18:48 | disposition home or self-care (01) ==
LOC: ER 16:36
DX: R44.0 Auditory hallucinations (principal); G47.00 Insomnia, unspecified; F41.9 Anxiety disorder, unspecified; F32.A Depression, unspecified; Z88.5 Allergy status to narcotic agent; Z88.8 Allergy status to other drugs, medicaments and biological substances; Z79.899 Other long term (current) drug therapy
CPT/HCPCS: 36415; 80053; 80305; 85025; 96372; 99283; J1630; Q0163; J1200; J2060

== ENCOUNTER 2021-11-16 18:14 | Emergency (ER) | payer MEDICARE, MEDICAID ==
[~2021-11-16] VITALS: Ht 165.1 cm; Wt 72.3 kg
[~2021-11-16 18:14] MED LIST changes: +DIPH50CA39 PO
[2021-11-16 18:35] VITALS: BP 119/78
--- NOTE | 2021-11-16 20:00 | NUR ---
Patient is distressed with hearing voices, but does not indicated SI or HI
[2021-11-16 20:31] LABS: CLARITY,URINE SLIGHTLY CLOUDY (Clear); COLOR,URINE YELLOW (Yellow); GLUCOSE, URINE NEGATIVE (Neg); KETONES,URINE NEGATIVE (Neg); LEUKOCYTE ESTERASE ,URINE NEGATIVE (Neg); NITRITES, URINE NEGATIVE (Neg); OCCULT BLOOD,URINE NEGATIVE (Neg); PROTEIN,URINE NEGATIVE (Neg); UROBILINOGEN,URINE 0.2 E.U/dL (0.2-1.0)
[2021-11-16 20:40] LABS: URINE AMPHETAMINE SCREEN NEGATIVE (Neg); URINE BARBITUATE SCREEN NEGATIVE (Neg); URINE BENZODIAZEPINES SCREEN NEGATIVE (Neg); URINE CANNABINOID SCREEN NEGATIVE (Neg); URINE COCAINE SCREEN NEGATIVE (Neg); URINE METHADONE SCREEN NEGATIVE (Neg); URINE OPIATE SCREEN NEGATIVE (Neg); URINE PHENCYCLIDINE SCREEN NEGATIVE (Neg)
[2021-11-16 20:45] LABS: UA COLLECTION TYPE CLN CATCH MIDSTREAM
[2021-11-16 20:47] LABS: BACTERIA,URINE FEW /HPF (Neg); MUCUS STRANDS FEW /LPF (Neg); SQUAMOUS EPITHELIAL CELL,UR MODERATE /LPF (FEW)
[2021-11-17 00:12] LABS: BASOPHILS % (AUTO) 0.5 % (0-1); EOSINOPHILS % (AUTO) 0.3 % (0-6); HEMATOCRIT 41.8 % (35.0-45.0); LYMPHOCYTES % (AUTO) 26.1 % (21-51); MEAN CORPUSCULAR HEMOGLOBIN 29.6 PG (27.0-31.0); MEAN CORPUSCULAR HGB CONC 33.4 g/dL (33.0-36.5); MEAN CORPUSCULAR VOLUME 88.5 FL (78-98); MEAN PLATELET VOLUME 9.1 FL (7.4-10.4); MONOCYTES # (AUTO) 0.4 X10'3 (0-0.9); MONOCYTES % (AUTO) 5.1 % (2-12); NEUTROPHILS # (AUTO) 5.2 X10'3 (1.8-7.7); PLATELET COUNT 224 X10'3 (140-440); RED BLOOD COUNT 4.72 X10'6 (4.20-5.60); RED CELL DISTRIBUTION WIDTH 15.7 % (11.5-14.5); WHITE BLOOD COUNT 7.6 X10'3 (4.5-11.0)
[2021-11-17 00:35] LABS: ALANINE AMINOTRANSFERASE 24 U/L (12-78); ALBUMIN 3.8 G/DL (3.4-5.0); ALBUMIN/GLOBULIN RATIO 1.2 (1.1-1.5); ALKALINE PHOSPHATASE 73 IU/L (46-116); ANION GAP 14 (8-16); ASPARTATE AMINO TRANSFERASE 20 U/L (10-37); BILIRUBIN,TOTAL 0.3 MG/DL (0.1-1.0); BLOOD UREA NITROGEN 14 MG/DL (7-18); BUN/CREATININE RATIO 16.1 (6.6-38.0); CALCIUM 8.9 MG/DL (8.5-10.1); CHLORIDE 106 MMOL/L (99-107); CREATININE 0.87 MG/DL (0.40-0.90); ETHANOL < 0.010 GM/DL (0.0-0.010); GLUCOSE 93 MG/DL (70-104); POTASSIUM 4.1 MMOL/L (3.5-5.1); SODIUM 142 MMOL/L (135-145); TOTAL CARBON DIOXIDE 22.3 MMOL/L (24-32); TOTAL PROTEIN 6.9 G/DL (6.4-8.2); eGFR 71 ML/MIN
[2021-11-17] MEDS ORDERED: LORazepam 1 MG tablet PO ONE (02:05)
[2021-11-17] MEDS ORDERED: magnesium oxide 400mg tablet PO ONE (02:05)
[2021-11-17] MEDS ORDERED: haloperidol lactate 5mg/ml inj IM ONE (02:05)
[2021-11-17] MEDS ORDERED: diphenhydrAMINE 50 mg/ml inj IM ONE (02:05)
[2021-11-17] MEDS ORDERED: quetiapine 100mg tablet PO ONE (02:31)
[2021-11-17] MEDS ORDERED: QUEtiapine 25mg tablet PO SCH (08:00)
== END 2021-11-17 02:54 | disposition home or self-care (01) ==
LOC: ER 18:15
DX: F29 Unspecified psychosis not due to a substance or known physiological condition (principal); F41.9 Anxiety disorder, unspecified; F32.A Depression, unspecified; F20.9 Schizophrenia, unspecified; Z88.5 Allergy status to narcotic agent; Z88.8 Allergy status to other drugs, medicaments and biological substances; Z79.899 Other long term (current) drug therapy
CPT/HCPCS: 36415; 80053; 80305; 80320; 81001; 85025; 87088; 96372; 99284; J1200; J1630

== ENCOUNTER 2021-11-25 19:41 | Emergency (ER) | payer MEDICARE, MEDICAID ==
[~2021-11-25] VITALS: Ht 165.1 cm; Wt 75.0 kg
[2021-11-25 22:17] LABS: CLARITY,URINE CLEAR (Clear); COLOR,URINE YELLOW (Yellow); GLUCOSE, URINE NEGATIVE (Neg); KETONES,URINE NEGATIVE (Neg); LEUKOCYTE ESTERASE ,URINE NEGATIVE (Neg); NITRITES, URINE NEGATIVE (Neg); OCCULT BLOOD,URINE NEGATIVE (Neg); PROTEIN,URINE NEGATIVE (Neg); UROBILINOGEN,URINE 0.2 E.U/dL (0.2-1.0)
[2021-11-25 22:18] LABS: URINE HCG NEGATIVE (NEG)
[2021-11-25 22:25] LABS: UA COLLECTION TYPE CLN CATCH MIDSTREAM
[2021-11-25 22:29] LABS: BASOPHILS % (AUTO) 0.3 % (0-1); EOSINOPHILS # (AUTO) 0.1 X10'3 (0-0.9); EOSINOPHILS % (AUTO) 0.6 % (0-6); HEMATOCRIT 41.2 % (35.0-45.0); HEMOGLOBIN 13.7 g/dl (12.0-16.0); LYMPHOCYTES # (AUTO) 1.7 X10'3 (1.1-4.8); MEAN CORPUSCULAR HEMOGLOBIN 29.7 PG (27.0-31.0); MEAN CORPUSCULAR HGB CONC 33.2 g/dL (33.0-36.5); MEAN CORPUSCULAR VOLUME 89.4 FL (78-98); MEAN PLATELET VOLUME 9.6 FL (7.4-10.4); MONOCYTES # (AUTO) 0.7 X10'3 (0-0.9); MONOCYTES % (AUTO) 6.9 % (2-12); NEUTROPHILS # (AUTO) 7.2 X10'3 (1.8-7.7); NEUTROPHILS % (AUTO) 74.2 % (42-75); PLATELET COUNT 208 X10'3 (140-440); RED BLOOD COUNT 4.61 X10'6 (4.20-5.60); RED CELL DISTRIBUTION WIDTH 15.6 % (11.5-14.5); WHITE BLOOD COUNT 9.7 X10'3 (4.5-11.0)
[2021-11-25 22:32] LABS: URINE AMPHETAMINE SCREEN NEGATIVE (Neg); URINE BARBITUATE SCREEN NEGATIVE (Neg); URINE BENZODIAZEPINES SCREEN NEGATIVE (Neg); URINE CANNABINOID SCREEN NEGATIVE (Neg); URINE COCAINE SCREEN NEGATIVE (Neg); URINE METHADONE SCREEN NEGATIVE (Neg); URINE OPIATE SCREEN NEGATIVE (Neg); URINE PHENCYCLIDINE SCREEN NEGATIVE (Neg)
[2021-11-25 22:47] LABS: ALANINE AMINOTRANSFERASE 25 U/L (12-78); ALBUMIN 3.8 G/DL (3.4-5.0); ALBUMIN/GLOBULIN RATIO 1.1 (1.1-1.5); ALKALINE PHOSPHATASE 85 IU/L (46-116); ANION GAP 7 (8-16); ASPARTATE AMINO TRANSFERASE 18 U/L (10-37); BILIRUBIN,TOTAL 0.3 MG/DL (0.1-1.0); BLOOD UREA NITROGEN 11 MG/DL (7-18); BUN/CREATININE RATIO 13.1 (6.6-38.0); CALCIUM 9.1 MG/DL (8.5-10.1); CHLORIDE 105 MMOL/L (99-107); CREATININE 0.84 MG/DL (0.40-0.90); GLUCOSE 98 MG/DL (70-104); POTASSIUM 3.2 MMOL/L (3.5-5.1); SODIUM 140 MMOL/L (135-145); TOTAL CARBON DIOXIDE 27.7 MMOL/L (24-32); TOTAL PROTEIN 7.2 G/DL (6.4-8.2); eGFR 74 ML/MIN
[2021-11-25 22:59] LABS: ETHANOL < 0.010 GM/DL (0.0-0.010)
[2021-11-25] MEDS ORDERED: potassium Cl 20 mEq SR tablet PO STA (23:01)
[2021-11-25] MEDS ORDERED: LORazepam 1 MG tablet PO ONE (23:50)
[2021-11-26] MEDS ORDERED: zolpidem 5mg tablet PO ONE (00:15)
[2021-11-26] MEDS ORDERED: OLANZapine 2.5MG tablet PO ONE (00:15)
--- NOTE | 2021-11-26 00:21 | NUR ---
patients belongings in locker #22
--- NOTE | 2021-11-26 06:30 | NUR ---
first contact with pt. found sleeping in bed, even rise and fall of chest noted. no distress noted.
--- NOTE | 2021-11-26 10:45 | NUR ---
PT. RECEIVED FROM MAIN ER TO [facility]. PT. PRESENTS CALM AND COOPERATIVE WITH ASSESSMENT. DENIES ANY CURRENT SI/HI OR VISUAL HALLUCINATIONS. PT. STATES AUDITORY HALLUCINATIONS HEARING 2 MALE VOICES TELLING HER SHE'S STUPID AND SHE NEEDS TO BE IN THE PSYCHIATRIC UNIT. PT. DENIES AN COMMANDS TO HARM SELF OR OTHERS.
[2021-11-26] MEDS ORDERED: OLAN10TA3 PO (12:50)
[2021-11-26] MEDS ORDERED: OLAN20TA3 PO ×2 (12:50→12:51)
[2021-11-26] MEDS ORDERED: BUS15T PO (12:51)
[2021-11-26] MEDS ORDERED: OMEP20TA23 PO (12:51)
[2021-11-26] MEDS ORDERED: DIPH-1055 PO (12:51)
[2021-11-26] MEDS ORDERED: LUMA42CA PO (12:51)
[2021-11-26] MEDS ORDERED: BUPR2TAB11 SL (12:51)
[2021-11-26] MEDS ORDERED: IBUP-1594 PO (12:51)
[2021-11-26] MEDS ORDERED: diphenhydrAMINE 25mg capsule PO PRN (13:05)
[2021-11-26] MEDS ORDERED: ibuprofen 200mg tablet PO PRN (13:05)
[2021-11-26] MEDS ORDERED: olanzapine 10mg tablet PO SCH ×2 (13:30→21:00)
[2021-11-26] MEDS ORDERED: hydrOXYzine 25 MG tablet PO PRN (14:10)
--- NOTE | 2021-11-26 15:45 | NUR ---
DENNYS FROM [facility] AT BEDSIDE TO EVALUATE PATIENT. DENNYS STATES THAT [facility] WILL ACCEPT PATIENT. DENNYS STATES TRANSPORT TO FACILITY WILL BE 11/27/21. FACILITY WILL CALL WITH PICK-UP TIME.
[2021-11-26] MEDS ORDERED: BUPRENORPHINE HCL 2 MG SL SCH (16:00)
--- NOTE | 2021-11-26 16:19 | NUR ---
PT. MEDICATIONS INVENTORIED AND TAKEN TO PHARMACY FOR LOCKUP UNTIL DICHARGED.
--- NOTE | 2021-11-26 19:28 | NUR ---
PATIENT RECEIVED ON THE UNIT IN NO OBVIOUS DISTRESS. NO PHYSICAL COMPLAINT MADE. PATIENT IS BREATHING SPONTANOUSLY ON ROOM AIR. PATIENT RATES DEPRESSION3/10 AND ANXIETY 5/10. PATIENT DENIES HAVING ANY SUICIDAL IDEATION AT THIS TIME.
--- NOTE | 2021-11-26 19:39 | NUR ---
PATIENT DISCHARGE FROM UNIT WITH BELONGINGS AND HOME MEDICATIONS
[2021-11-26 19:44] VITALS: BP 128/86
[2021-11-26] MEDS ORDERED: topiramate 25mg tablet PO SCH (20:00)
[2021-11-26] MEDS ORDERED: busPIRone 15mg tablet PO SCH (20:00)
[2021-11-26] MEDS ORDERED: zolpidem 5mg tablet PO SCH (21:00)
[2021-11-27] MEDS ORDERED: pantoprazole 40mg Tablet.DR PO SCH (07:30)
[2021-11-27] MEDS ORDERED: olanzapine 10mg tablet PO SCH (08:00)
== END 2021-11-26 19:51 ==
LOC: ER 19:41
DX: R45.850 Homicidal ideations (principal); Z20.822 Contact with and (suspected) exposure to COVID-19; R45.851 Suicidal ideations; E87.6 Hypokalemia; F20.9 Schizophrenia, unspecified; F41.9 Anxiety disorder, unspecified; F32.A Depression, unspecified; Z98.890 Other specified postprocedural states; Z88.5 Allergy status to narcotic agent; Z88.8 Allergy status to other drugs, medicaments and biological substances; Z79.899 Other long term (current) drug therapy
CPT/HCPCS: 36415; 71045; 80053; 80305; 80320; 81003; 81025; 84443; 85025; 87635; 99285; C9803; Q0177

== ENCOUNTER 2021-12-07 20:44 | Emergency (ER) | payer MEDICARE, MEDICAID ==
[~2021-12-07] VITALS: Ht 165.1 cm; Wt 76.4 kg
[~2021-12-07 20:44] MED LIST changes: -BARIATRIC FUSION VIT PO; -BUPR-94 PO; +BUPR2TAB11 SL; +BUS15T PO; -CLON-571 PO; -CYCL-394 PO; +DIPH-1055 PO; -DIPH50CA39 PO; -FLUO20CA39 PO; +IBUP-1594 PO; +LUMA42CA PO; -MIRT45TA83 PO; +OLAN20TA3 PO; +OMEP20TA23 PO; -OMEP20TA5 PO; -PERP8TAB6 PO; -QUET-1 PO; -TRAM50TA2 PO; -buprenorphine PO; -prevagen PO
[2021-12-07 20:48] VITALS: BP 140/81
[2021-12-07] MEDS ORDERED: LORazepam 1 MG tablet PO ONE (23:10)
[2021-12-08] MEDS ORDERED: OMEP20CA16 PO (17:06)
[2021-12-08] MEDS ORDERED: IBUP-1985 PO (17:06)
[2021-12-08] MEDS ORDERED: DOCU-345 PO (17:06)
[2021-12-08] MEDS ORDERED: FLUO-1 PO (17:06)
[2021-12-08] MEDS ORDERED: HYDR50TA65 PO (17:06)
[2021-12-08] MEDS ORDERED: TOPI50TA24 PO (17:06)
[2021-12-08] MEDS ORDERED: BUSP15TA7 PO (17:06)
== END 2021-12-07 23:32 | disposition home or self-care (01) ==
LOC: ER 20:45
DX: R44.0 Auditory hallucinations (principal); F41.9 Anxiety disorder, unspecified; F32.A Depression, unspecified; Z98.890 Other specified postprocedural states; Z88.5 Allergy status to narcotic agent; Z88.8 Allergy status to other drugs, medicaments and biological substances; Z79.899 Other long term (current) drug therapy
CPT/HCPCS: 99283

== ENCOUNTER 2021-12-08 13:19 | Emergency (ER) | payer MEDICARE, MEDICAID ==
[~2021-12-08] VITALS: Ht 165.1 cm; Wt 76.4 kg
[2021-12-08 14:27] LABS: BASOPHILS % (AUTO) 0.4 % (0-1); EOSINOPHILS % (AUTO) 0.6 % (0-6); HEMATOCRIT 39.4 % (35.0-45.0); HEMOGLOBIN 12.7 g/dl (12.0-16.0); LYMPHOCYTES # (AUTO) 1.7 X10'3 (1.1-4.8); LYMPHOCYTES % (AUTO) 24.3 % (21-51); MEAN CORPUSCULAR HEMOGLOBIN 29.1 PG (27.0-31.0); MEAN CORPUSCULAR HGB CONC 32.3 g/dL (33.0-36.5); MEAN CORPUSCULAR VOLUME 89.9 FL (78-98); MEAN PLATELET VOLUME 9.5 FL (7.4-10.4); MONOCYTES # (AUTO) 0.4 X10'3 (0-0.9); MONOCYTES % (AUTO) 5.9 % (2-12); NEUTROPHILS # (AUTO) 4.9 X10'3 (1.8-7.7); NEUTROPHILS % (AUTO) 68.8 % (42-75); PLATELET COUNT 274 X10'3 (140-440); RED BLOOD COUNT 4.38 X10'6 (4.20-5.60); RED CELL DISTRIBUTION WIDTH 15.5 % (11.5-14.5); WHITE BLOOD COUNT 7.1 X10'3 (4.5-11.0)
[2021-12-08 14:31] LABS: ALANINE AMINOTRANSFERASE 40 U/L (12-78); ALBUMIN 3.5 G/DL (3.4-5.0); ALKALINE PHOSPHATASE 88 IU/L (46-116); ANION GAP 10 (8-16); ASPARTATE AMINO TRANSFERASE 21 U/L (10-37); BILIRUBIN,TOTAL 0.2 MG/DL (0.1-1.0); BLOOD UREA NITROGEN 8 MG/DL (7-18); BUN/CREATININE RATIO 11.6 (6.6-38.0); CALCIUM 9.3 MG/DL (8.5-10.1); CHLORIDE 107 MMOL/L (99-107); CREATININE 0.69 MG/DL (0.40-0.90); GLUCOSE 97 MG/DL (70-104); POTASSIUM 3.7 MMOL/L (3.5-5.1); SODIUM 141 MMOL/L (135-145); TOTAL CARBON DIOXIDE 24.3 MMOL/L (24-32); TOTAL PROTEIN 6.9 G/DL (6.4-8.2); eGFR > 90 ML/MIN
[2021-12-08 14:38] LABS: ETHANOL < 0.010 GM/DL (0.0-0.010)
[2021-12-08 16:11] LABS: CLARITY,URINE CLEAR (Clear); COLOR,URINE YELLOW (Yellow); GLUCOSE, URINE NEGATIVE (Neg); KETONES,URINE NEGATIVE (Neg); LEUKOCYTE ESTERASE ,URINE NEGATIVE (Neg); NITRITES, URINE NEGATIVE (Neg); OCCULT BLOOD,URINE NEGATIVE (Neg); PROTEIN,URINE NEGATIVE (Neg); UROBILINOGEN,URINE 0.2 E.U/dL (0.2-1.0)
[2021-12-08 16:13] LABS: URINE HCG NEGATIVE (NEG)
[2021-12-08 16:22] LABS: URINE AMPHETAMINE SCREEN NEGATIVE (Neg); URINE BARBITUATE SCREEN NEGATIVE (Neg); URINE BENZODIAZEPINES SCREEN NEGATIVE (Neg); URINE CANNABINOID SCREEN NEGATIVE (Neg); URINE COCAINE SCREEN NEGATIVE (Neg); URINE METHADONE SCREEN NEGATIVE (Neg); URINE OPIATE SCREEN NEGATIVE (Neg); URINE PHENCYCLIDINE SCREEN NEGATIVE (Neg)
[2021-12-08 16:30] LABS: UA COLLECTION TYPE CLN CATCH MIDSTREAM
[2021-12-08] MEDS ORDERED: TOPI50TA24 PO (17:06)
[2021-12-08] MEDS ORDERED: FLUO-1 PO (17:06)
[2021-12-08] MEDS ORDERED: HYDR50TA65 PO (17:06)
[2021-12-08] MEDS ORDERED: IBUP-1985 PO (17:06)
[2021-12-08] MEDS ORDERED: BUSP15TA7 PO (17:06)
[2021-12-08] MEDS ORDERED: OMEP20CA16 PO (17:06)
[2021-12-08] MEDS ORDERED: DOCU-345 PO (17:06)
[2021-12-08] MEDS ORDERED: hydrOXYzine 25 MG tablet PO STA (17:14)
--- NOTE | 2021-12-08 17:14 | NUR ---
med rec complete based off of pt report and external med rec.
[2021-12-08] MEDS ORDERED: hydrOXYzine 25 MG tablet PO PRN (17:15)
[2021-12-08] MEDS ORDERED: busPIRone 15mg tablet PO PRN (17:15)
--- NOTE | 2021-12-08 17:16 | NUR ---
packet faxed to [facility]
[2021-12-08] MEDS ORDERED: ibuprofen 200mg tablet PO PRN (17:25)
--- NOTE | 2021-12-08 17:25 | NUR ---
pt reports being here for increasing auditory and visual hallucinations. states she was here yesterday for the same but felt she would do okay following up with her primary doctor. returned today for worsening of the hallucinations and states it is 1 male voice (unknown person) who is telling her to punch guzman and feels "vindictive." pt believes she is possessed by a spirit for the last 3 years. denies any SI/SH/HI at this time. states her schizophrenia was diagnosed 15 years ago. is AOX4 and cooperative. reports anxiety at this time and hydroxyzine given prn per diamond as this is what pt takes at home for anxiety.
--- NOTE | 2021-12-08 19:04 | NUR ---
PATIENT RECEIVED ON THE UNIT IN NO OBVIOUS . NO PHYSICAL COMPLAINT MADE. PATIENT IS BREATHING SPONTANOUSLY ON ROOM AIR. PATIENT RATES ANXIETY 3/10 AND DEPRESSION 4/10. PATIENT ADMITS TO AUDIOTARY HALLUCINATION,SHE STATES THAT THE VOICES ARE TELLING HER THAT SHE IS GOING BACK TO THE [facility]. OBSERVATION GOING
[2021-12-08] MEDS ORDERED: docusate sod 100mg capsule PO SCH (20:00)
[2021-12-08] MEDS ORDERED: topiramate 25mg tablet PO SCH (20:00)
--- NOTE | 2021-12-08 20:25 | NUR ---
PATIENT LEFT THE UNIT WITH TRANSPORTER TO [facility].
[2021-12-08 20:45] VITALS: BP 123/81
[2021-12-08] MEDS ORDERED: zolpidem 5mg tablet PO SCH (21:00)
[2021-12-08] MEDS ORDERED: olanzapine 10mg tablet PO SCH (21:00)
[2021-12-09] MEDS ORDERED: BUPRENORPHINE HCL 2 MG SL SCH
[2021-12-09] MEDS ORDERED: pantoprazole 40mg Tablet.DR PO SCH (07:30)
[2021-12-09] MEDS ORDERED: FLUoxetine 20mg capsule PO SCH (08:00)
[2021-12-09] MEDS ORDERED: olanzapine 10mg tablet PO SCH (13:30)
== END 2021-12-08 20:25 ==
LOC: ER 13:20
DX: F20.9 Schizophrenia, unspecified (principal); Z20.822 Contact with and (suspected) exposure to COVID-19; F41.9 Anxiety disorder, unspecified; F32.A Depression, unspecified; Z88.8 Allergy status to other drugs, medicaments and biological substances; Z88.5 Allergy status to narcotic agent; Z79.899 Other long term (current) drug therapy
CPT/HCPCS: 36415; 80053; 80305; 80320; 81003; 81025; 84443; 85025; 87635; 99285; C9803; Q0177

== ENCOUNTER 2021-12-10 17:35 | Emergency (ER) | payer MEDICARE, MEDICAID ==
[~2021-12-10] VITALS: Ht 165.1 cm; Wt 75.0 kg
[~2021-12-10 17:35] MED LIST changes: -BUS15T PO; +BUSP15TA7 PO; -DIPH-1055 PO; +DOCU-345 PO; +FLUO-1 PO; +HYDR50TA65 PO; -IBUP-1594 PO; +IBUP-1985 PO; -OLAN10TA3 PO; +OMEP20CA16 PO; -OMEP20TA23 PO; -TOPI50TA PO; +TOPI50TA24 PO
--- NOTE | 2021-12-10 18:18 | NUR ---
Pt presents to the ed tx area stating, "I'm hearing voices telling me I'm a stupid bitch, that i need to go to the mental health hospital;" the "voices electricuted me, causing pain in my left side." the pt is a/o, nad, skin w/d; she states she has a hx of scoliosis for which she wears an upper body brace and has intermittently back pain. The pt also states she was here in the ed two days ago and was [facility].
[2021-12-10 18:38] LABS: BASOPHILS % (AUTO) 0.7 % (0-1); EOSINOPHILS # (AUTO) 0.1 X10'3 (0-0.9); EOSINOPHILS % (AUTO) 0.9 % (0-6); HEMOGLOBIN 12.7 g/dl (12.0-16.0); LYMPHOCYTES # (AUTO) 1.7 X10'3 (1.1-4.8); LYMPHOCYTES % (AUTO) 23.5 % (21-51); MEAN CORPUSCULAR HEMOGLOBIN 28.7 PG (27.0-31.0); MEAN CORPUSCULAR HGB CONC 32.5 g/dL (33.0-36.5); MEAN CORPUSCULAR VOLUME 88.3 FL (78-98); MEAN PLATELET VOLUME 9.3 FL (7.4-10.4); MONOCYTES # (AUTO) 0.3 X10'3 (0-0.9); MONOCYTES % (AUTO) 4.6 % (2-12); NEUTROPHILS % (AUTO) 70.3 % (42-75); PLATELET COUNT 274 X10'3 (140-440); RED BLOOD COUNT 4.41 X10'6 (4.20-5.60); RED CELL DISTRIBUTION WIDTH 15.4 % (11.5-14.5); WHITE BLOOD COUNT 7.1 X10'3 (4.5-11.0)
[2021-12-10 18:47] LABS: ALANINE AMINOTRANSFERASE 30 U/L (12-78); ALBUMIN 3.5 G/DL (3.4-5.0); ALKALINE PHOSPHATASE 87 IU/L (46-116); ANION GAP 11 (8-16); ASPARTATE AMINO TRANSFERASE 23 U/L (10-37); BILIRUBIN,TOTAL 0.3 MG/DL (0.1-1.0); BLOOD UREA NITROGEN 10 MG/DL (7-18); BUN/CREATININE RATIO 12.7 (6.6-38.0); CALCIUM 8.7 MG/DL (8.5-10.1); CHLORIDE 106 MMOL/L (99-107); CREATININE 0.79 MG/DL (0.40-0.90); GLUCOSE 133 MG/DL (70-104); POTASSIUM 3.2 MMOL/L (3.5-5.1); SODIUM 141 MMOL/L (135-145); TOTAL CARBON DIOXIDE 24.2 MMOL/L (24-32); eGFR 79 ML/MIN
[2021-12-10 18:55] LABS: ETHANOL < 0.010 GM/DL (0.0-0.010)
[2021-12-10] MEDS ORDERED: LORazepam 1 MG tablet PO ONE (19:00)
[2021-12-10 19:17] LABS: CLARITY,URINE CLEAR (Clear); COLOR,URINE YELLOW (Yellow); GLUCOSE, URINE NEGATIVE (Neg); KETONES,URINE NEGATIVE (Neg); LEUKOCYTE ESTERASE ,URINE NEGATIVE (Neg); NITRITES, URINE NEGATIVE (Neg); OCCULT BLOOD,URINE NEGATIVE (Neg); PROTEIN,URINE NEGATIVE (Neg); UROBILINOGEN,URINE 0.2 E.U/dL (0.2-1.0)
[2021-12-10 19:19] LABS: URINE HCG NEGATIVE (NEG)
[2021-12-10 19:21] LABS: UA COLLECTION TYPE CLN CATCH MIDSTREAM
[2021-12-10 19:23] LABS: URINE AMPHETAMINE SCREEN NEGATIVE (Neg); URINE BARBITUATE SCREEN NEGATIVE (Neg); URINE BENZODIAZEPINES SCREEN NEGATIVE (Neg); URINE CANNABINOID SCREEN NEGATIVE (Neg); URINE COCAINE SCREEN NEGATIVE (Neg); URINE METHADONE SCREEN NEGATIVE (Neg); URINE OPIATE SCREEN NEGATIVE (Neg); URINE PHENCYCLIDINE SCREEN NEGATIVE (Neg)
--- NOTE | 2021-12-10 19:56 | NUR ---
Covid swab spec collected and sent
[2021-12-11] MEDS ORDERED: busPIRone 15mg tablet PO PRN (00:50)
[2021-12-11] MEDS ORDERED: ibuprofen 200mg tablet PO PRN ×2 (00:55→00:56)
[2021-12-11] MEDS: zolpidem 5mg tablet PO SCH ×2 (01:09→01:54)
[2021-12-11] MEDS ORDERED: olanzapine 10mg tablet PO ONE (01:15)
--- NOTE | 2021-12-11 01:30 | NUR ---
pt transferred to ED psyche hold; vss, denies need.
[2021-12-11] MEDS: buprenorphine/naloxone 2-0.5mg sublingual tablet SL SCH ×3 (01:54→16:34)
[2021-12-11 05:17] VITALS: BP 112/78
--- NOTE | 2021-12-11 06:00 | NUR ---
Patient received from EHSAN [facility]on.
--- NOTE | 2021-12-11 06:21 | NUR ---
[facility]so[facility] report given to oncoming rn
[2021-12-11] MEDS ORDERED: pantoprazole 40mg Tablet.DR PO SCH (07:30)
--- NOTE | 2021-12-11 07:48 | NUR ---
Patient states that she is having thoughts of harming herself with no plan as of now. She states "last night i wanted to take a bunch of pills". She also states that she is currently expericing auditory hallucinations. She is currently resting in bed quietly.
[2021-12-11] MEDS ORDERED: topiramate 25mg tablet PO SCH (08:00)
[2021-12-11] MEDS ORDERED: docusate sod 100mg capsule PO SCH (08:00)
[2021-12-11] MEDS ORDERED: FLUoxetine 20mg capsule PO SCH (08:00)
--- NOTE | 2021-12-11 10:00 | NUR ---
Patient is resting in bed. Patient s/s of discomfort. Will continue to monitor and assist as needed.
[2021-12-11] MEDS: hydrOXYzine 25 MG tablet PO PRN ×2 (11:32→15:39)
--- NOTE | 2021-12-11 12:02 | NUR ---
Patient in bed eating lunch. PRN Atarax was given upon patients request. Will continue to monitor and assist as needed.
[2021-12-11] MEDS ORDERED: olanzapine 10mg tablet PO SCH (13:30)
--- NOTE | 2021-12-11 14:00 | NUR ---
Sitting up in bed reading a book. calm, cooperative. Will c ontinue to monitor and assist as needed.
--- NOTE | 2021-12-11 15:03 | NUR ---
Patient has been accepted to [facility] in [place] by Dr. Pacheco. fertilizer supervisor time within an hour.
--- NOTE | 2021-12-11 16:52 | NUR ---
Patient is dicharged to receiving facility [facility] in [place] at 1650.
[2021-12-11] MEDS ORDERED: non-formulary drug (Olanzapine (Zyprexa) 1 TAB) PO SCH (21:00)
== END 2021-12-11 16:50 ==
LOC: ER 17:36
DX: F20.9 Schizophrenia, unspecified (principal); Z20.822 Contact with and (suspected) exposure to COVID-19; R45.851 Suicidal ideations; F41.9 Anxiety disorder, unspecified; F32.A Depression, unspecified; Z88.5 Allergy status to narcotic agent; Z88.8 Allergy status to other drugs, medicaments and biological substances; Z79.899 Other long term (current) drug therapy
CPT/HCPCS: 36415; 80053; 80305; 80320; 81003; 81025; 84443; 85025; 87635; 99285; C9803; Q0177

== ENCOUNTER 2021-12-31 08:59 | Emergency (ER) | payer MEDICARE, MEDICAID ==
[~2021-12-31] VITALS: Ht 165.1 cm; Wt 75.4 kg
[2021-12-31] MEDS ORDERED: POLY119P2 PO (09:44)
[2021-12-31] MEDS ORDERED: magnesium citrate 296ml oral solution PO ONE (09:45)
[2021-12-31 09:57] VITALS: BP 125/82
== END 2021-12-31 10:02 | disposition home or self-care (01) ==
LOC: ER 09:01
DX: K59.00 Constipation, unspecified (principal); Z88.5 Allergy status to narcotic agent; Z88.8 Allergy status to other drugs, medicaments and biological substances; Z79.899 Other long term (current) drug therapy; Z98.890 Other specified postprocedural states
CPT/HCPCS: 99282

== ENCOUNTER 2022-02-11 11:14 | Emergency (ER) | payer MEDICARE, MEDICAID ==
[~2022-02-11] VITALS: Ht 165.1 cm; Wt 71.8 kg
[~2022-02-11 11:14] MED LIST changes: +POLY119P2 PO
[2022-02-11 11:21] VITALS: BP 110/72
== END 2022-02-11 12:00 | disposition home or self-care (01) ==
LOC: ER 11:15
DX: F20.9 Schizophrenia, unspecified (principal); F41.9 Anxiety disorder, unspecified; F32.A Depression, unspecified; Z98.890 Other specified postprocedural states; Z88.8 Allergy status to other drugs, medicaments and biological substances; Z88.6 Allergy status to analgesic agent; Z79.899 Other long term (current) drug therapy
CPT/HCPCS: 99281

== ENCOUNTER 2023-09-14 23:31 | Inpatient (IN) | payer MEDICARE, MEDICAID ==
[~2023-09-14] VITALS: Ht 165.1 cm; Wt 74.1 kg
[~2023-09-14 23:31] MED LIST changes: -DOCU-345 PO; +DOCU-368 PO; +TOPI-253 PO; -TOPI50TA24 PO
[2023-09-15 01:15] LABS: BILIRUBIN,URINE NEGATIVE (Neg); CLARITY,URINE SLIGHTLY CLOUDY (Clear); COLOR,URINE YELLOW (Yellow); GLUCOSE, URINE NEGATIVE (Neg); KETONES,URINE NEGATIVE (Neg); LEUKOCYTE ESTERASE ,URINE NEGATIVE (Neg); NITRITES, URINE NEGATIVE (Neg); OCCULT BLOOD,URINE TRACE-INTACT (Neg); PROTEIN,URINE NEGATIVE (Neg)
[2023-09-15 01:29] LABS: ACETAMINOPHEN 5.9 UG/ML (10-30); ALANINE AMINOTRANSFERASE 18 U/L (12-78); ALBUMIN 2.7 G/DL (3.4-5.0); ALBUMIN/GLOBULIN RATIO 0.7 (1.1-1.5); ALKALINE PHOSPHATASE 116 IU/L (46-116); ANION GAP 10 (8-16); ASPARTATE AMINO TRANSFERASE 22 U/L (10-37); BILIRUBIN,TOTAL 0.2 MG/DL (0.1-1.0); BLOOD UREA NITROGEN 13 MG/DL (7-18); BUN/CREATININE RATIO 16.9 (10.0-20.0); CALCIUM 8.4 MG/DL (8.5-10.1); CHLORIDE 106 MMOL/L (99-107); CREATININE 0.77 MG/DL (0.40-0.90); GLUCOSE 92 MG/DL (70-104); SALICYLATE 1.2 MG/DL (4.0-20.0); SODIUM 141 MMOL/L (135-145); TOTAL CARBON DIOXIDE 25.2 MMOL/L (24-32); TOTAL PROTEIN 6.5 G/DL (6.4-8.2); eCRCL 83 ML/MIN; eGFR 81 ML/MIN
[2023-09-15 01:30] LABS: UA COLLECTION TYPE NON-SPECIFIED
[2023-09-15 01:31] LABS: SQUAMOUS EPITHELIAL CELL,UR MODERATE /LPF (FEW)
[2023-09-15 01:32] LABS: MUCUS STRANDS FEW /LPF (Neg)
[2023-09-15 01:33] LABS: AMORPHOUS PHOSPHATES 2+
[2023-09-15 01:41] LABS: BACTERIA,URINE FEW /HPF (Neg); WBC,URINE 0-4 /HPF (0-4)
[2023-09-15 01:45] LABS: URINE AMPHETAMINE SCREEN NEGATIVE (Neg); URINE BARBITUATE SCREEN NEGATIVE (Neg); URINE BENZODIAZEPINES SCREEN NEGATIVE (Neg); URINE CANNABINOID SCREEN NEGATIVE (Neg); URINE COCAINE SCREEN NEGATIVE (Neg); URINE METHADONE SCREEN NEGATIVE (Neg); URINE OPIATE SCREEN NEGATIVE (Neg); URINE PHENCYCLIDINE SCREEN NEGATIVE (Neg)
[2023-09-15 02:11] LABS: BASOPHILS % (AUTO) 0.4 % (0-1); EOSINOPHILS # (AUTO) 0.1 X10'3 (0-0.9); EOSINOPHILS % (AUTO) 1.5 % (0-6); HEMATOCRIT 36.7 % (35.0-45.0); HEMOGLOBIN 11.8 g/dl (12.0-16.0); LYMPHOCYTES # (AUTO) 1.2 X10'3 (1.1-4.8); MEAN CORPUSCULAR HGB CONC 32.3 g/dL (33.0-36.5); MEAN CORPUSCULAR VOLUME 89.7 FL (78-98); MEAN PLATELET VOLUME 10.4 FL (7.4-10.4); MONOCYTES # (AUTO) 0.4 X10'3 (0-0.9); MONOCYTES % (AUTO) 7.9 % (2-12); NEUTROPHILS # (AUTO) 3.6 X10'3 (1.8-7.7); NEUTROPHILS % (AUTO) 68.2 % (42-75); PLATELET COUNT 151 X10'3 (140-440); RED BLOOD COUNT 4.09 X10'6 (4.20-5.60); RED CELL DISTRIBUTION WIDTH 15.2 % (11.5-14.5); WHITE BLOOD COUNT 5.3 X10'3 (4.5-11.0)
[2023-09-15] MEDS ORDERED: FLUO40CA (02:25)
[2023-09-15] MEDS ORDERED: TRAZ150T78 PO (02:25)
[2023-09-15] MEDS ORDERED: TIZA4CAP6 PO (02:25)
[2023-09-15] MEDS ORDERED: CLOZ200T8 PO (02:25)
[2023-09-15] MEDS ORDERED: GABA300T25 (02:25)
[2023-09-15] MEDS ORDERED: potassium Cl 20 mEq SR tablet PO STA (02:37)
[2023-09-15 03:05] LABS: URINE HCG NEGATIVE (NEG)
[2023-09-15] MEDS ORDERED: GABA300C PO (12:08)
[2023-09-15] MEDS ORDERED: buprenorphine/naloxone 8MG-2MG SUBlingual film SL SCH ×3 (13:55→21:41)
[2023-09-15] MEDS: tizanidine 4mg tablet PO SCH ×2 (14:41→20:15)
[2023-09-15] MEDS: gabapentin 300mg capsule PO SCH ×2 (14:41→20:15)
[2023-09-15] MEDS: BUPRENORPHINE HCL 2 MG SL SCH (16:00)
[2023-09-15] MEDS ORDERED: magnesium hydroxide 30ml (MOM) UD suspension PO PRN (19:25)
[2023-09-15] MEDS ORDERED: mag hydrox/Alum hydrox/simeth 30ml oral suspension PO PRN (19:25)
[2023-09-15] MEDS ORDERED: acetaminophen 325mg tablet PO PRN (19:25)
[2023-09-15] MEDS ORDERED: loperamide 2mg capsule PO PRN (19:25)
[2023-09-15 19:51] VITALS: RESP 16; O2SAT 97
[2023-09-15 20:00] VITALS: BP 106/68; PULSE 85; RESP 16; TEMP 98.6; O2SAT 97
[2023-09-15] MEDS: traZODone 150mg tablet PO SCH (20:15)
[2023-09-15] MEDS: docusate sod 100mg capsule PO SCH (20:15)
[2023-09-15] MEDS: FLUoxetine 20mg capsule PO SCH (20:16)
[2023-09-15] MEDS ORDERED: clozapine 100mg tablet PO SCH (21:00)
[2023-09-16 06:56] LABS: BASOPHILS % (AUTO) 0.7 % (0-1); EOSINOPHILS # (AUTO) 0.1 X10'3 (0-0.9); HEMATOCRIT 38.1 % (35.0-45.0); HEMOGLOBIN 12.4 g/dl (12.0-16.0); LYMPHOCYTES # (AUTO) 1.5 X10'3 (1.1-4.8); LYMPHOCYTES % (AUTO) 41.2 % (21-51); MEAN CORPUSCULAR HEMOGLOBIN 29.2 PG (27.0-31.0); MEAN CORPUSCULAR HGB CONC 32.7 g/dL (33.0-36.5); MEAN CORPUSCULAR VOLUME 89.6 FL (78-98); MEAN PLATELET VOLUME 9.5 FL (7.4-10.4); MONOCYTES # (AUTO) 0.3 X10'3 (0-0.9); MONOCYTES % (AUTO) 8.7 % (2-12); NEUTROPHILS # (AUTO) 1.7 X10'3 (1.8-7.7); NEUTROPHILS % (AUTO) 46.4 % (42-75); PLATELET COUNT 176 X10'3 (140-440); RED BLOOD COUNT 4.25 X10'6 (4.20-5.60); RED CELL DISTRIBUTION WIDTH 15.2 % (11.5-14.5); WHITE BLOOD COUNT 3.7 X10'3 (4.5-11.0)
[2023-09-16 07:00] VITALS: RESP 16; O2SAT 99
[2023-09-16] MEDS: docusate sod 100mg capsule PO SCH ×2 (07:12→20:00)
[2023-09-16] MEDS: gabapentin 300mg capsule PO SCH ×3 (07:12→21:12)
[2023-09-16] MEDS: pantoprazole 40mg Tablet.DR PO SCH (07:12)
[2023-09-16] MEDS: tizanidine 4mg tablet PO SCH ×3 (07:13→21:12)
[2023-09-16] MEDS: FLUoxetine 20mg capsule PO SCH ×2 (07:18→20:00)
[2023-09-16] MEDS: BUPRENORPHINE HCL 2 MG SL SCH ×3 (07:18→15:58)
[2023-09-16 07:20] LABS: CHOL/HDL RATIO 1.6 (0.00-4.99); CHOLESTEROL 108 MG/DL (0-200); HDL CHOLESTEROL 68 MG/DL (35-60); LDL CHOLESTEROL 19 MG/DL (50-100); TRIGLYCERIDES 54 MG/DL (20-135)
[2023-09-16 08:00] VITALS: BP 116/70; PULSE 86; RESP 16; TEMP 98.2; O2SAT 99
[2023-09-16] MEDS ORDERED: FLUOXETINE HCL PO SCH (08:00)
[2023-09-16] MEDS ORDERED: buprenorphine/naloxone 2-0.5mg sublingual tablet SL SCH (11:21)
[2023-09-16] MEDS ORDERED: polyethylene glycol 3350 17gm powd pack PO PRN (11:55)
[2023-09-16] MEDS ORDERED: magnesium citrate 296ml oral solution PO PRN (11:55)
[2023-09-16] MEDS: acetaminophen 325mg tablet PO PRN (14:25)
[2023-09-16] MEDS ORDERED: LORazepam 1 MG tablet PO ONE (14:50)
[2023-09-16 19:00] VITALS: BP 115/79; PULSE 82; RESP 16; TEMP 97.8; O2SAT 98
[2023-09-16] MEDS ORDERED: ketorolac tromethamine 15mg/ml inj. IM ONE (19:25)
[2023-09-16] MEDS ORDERED: potassium Cl 40MEQ/1/2NS 520ml 520 ML IV PRN (19:40)
[2023-09-16] MEDS ORDERED: potassium Cl 20 mEq SR tablet PO PRN ×2 (19:40)
[2023-09-16] MEDS: traZODone 150mg tablet PO SCH (21:12)
[2023-09-16] MEDS: K and/or MAG REPLACEMENT MC SCH (22:10)
[2023-09-17 07:00] VITALS: RESP 12; O2SAT 96
[2023-09-17 08:00] VITALS: BP 105/60; PULSE 83; RESP 12; TEMP 98.4; O2SAT 96
[2023-09-17] MEDS: K and/or MAG REPLACEMENT MC SCH ×2 (08:00→20:00)
[2023-09-17] MEDS: docusate sod 100mg capsule PO SCH ×2 (08:11→20:42)
[2023-09-17] MEDS: tizanidine 4mg tablet PO SCH ×3 (08:11→20:42)
[2023-09-17] MEDS: gabapentin 300mg capsule PO SCH ×3 (08:11→20:43)
[2023-09-17] MEDS: FLUoxetine 20mg capsule PO SCH ×2 (08:11→20:41)
[2023-09-17] MEDS: pantoprazole 40mg Tablet.DR PO SCH (08:11)
[2023-09-17] MEDS: acetaminophen 325mg tablet PO PRN (08:14)
[2023-09-17] MEDS: BUPRENORPHINE HCL 2 MG SL SCH ×3 (09:46→21:00)
[2023-09-17 12:05] LABS: BASOPHILS % (AUTO) 0.5 % (0-1); EOSINOPHILS # (AUTO) 0.1 X10'3 (0-0.9); EOSINOPHILS % (AUTO) 1.5 % (0-6); HEMATOCRIT 39.2 % (35.0-45.0); HEMOGLOBIN 12.6 g/dl (12.0-16.0); LYMPHOCYTES # (AUTO) 1.4 X10'3 (1.1-4.8); LYMPHOCYTES % (AUTO) 28.2 % (21-51); MEAN CORPUSCULAR HEMOGLOBIN 28.8 PG (27.0-31.0); MEAN CORPUSCULAR HGB CONC 32.2 g/dL (33.0-36.5); MEAN CORPUSCULAR VOLUME 89.7 FL (78-98); MEAN PLATELET VOLUME 9.6 FL (7.4-10.4); MONOCYTES # (AUTO) 0.3 X10'3 (0-0.9); MONOCYTES % (AUTO) 6.1 % (2-12); NEUTROPHILS # (AUTO) 3.2 X10'3 (1.8-7.7); NEUTROPHILS % (AUTO) 63.7 % (42-75); PLATELET COUNT 201 X10'3 (140-440); RED BLOOD COUNT 4.37 X10'6 (4.20-5.60); RED CELL DISTRIBUTION WIDTH 15.6 % (11.5-14.5); WHITE BLOOD COUNT 5.1 X10'3 (4.5-11.0)
[2023-09-17 12:14] LABS: ALANINE AMINOTRANSFERASE 23 U/L (12-78); ALBUMIN 2.8 G/DL (3.4-5.0); ALBUMIN/GLOBULIN RATIO 0.7 (1.1-1.5); ALKALINE PHOSPHATASE 119 IU/L (46-116); ANION GAP 5 (8-16); ASPARTATE AMINO TRANSFERASE 39 U/L (10-37); BILIRUBIN,TOTAL 0.2 MG/DL (0.1-1.0); BLOOD UREA NITROGEN 15 MG/DL (7-18); BUN/CREATININE RATIO 18.8 (10.0-20.0); CALCIUM 8.7 MG/DL (8.5-10.1); CHLORIDE 106 MMOL/L (99-107); GLUCOSE 113 MG/DL (70-104); POTASSIUM 4.3 MMOL/L (3.5-5.1); SODIUM 140 MMOL/L (135-145); TOTAL CARBON DIOXIDE 29.1 MMOL/L (24-32); TOTAL PROTEIN 6.7 G/DL (6.4-8.2); eCRCL 80 ML/MIN; eGFR 78 ML/MIN
[2023-09-17 13:12] LABS: HBSAG SCREEN Negative (Negative); HEP B CORE AB, IGM Negative (Negative); HEP B CORE AB, TOT Negative (Negative)
[2023-09-17] MEDS ORDERED: ketorolac tromethamine 15mg/ml inj. IM ONE (14:30)
[2023-09-17] MEDS: LORazepam 1 MG tablet PO PRN (17:20)
[2023-09-17 19:00] VITALS: RESP 18; O2SAT 98
[2023-09-17 20:00] VITALS: BP 124/67; PULSE 91; RESP 18; TEMP 98.7; O2SAT 98
[2023-09-17] MEDS: traZODone 150mg tablet PO SCH (20:42)
[2023-09-17] MEDS ORDERED: clozapine 25mg tablet PO SCH (21:00)
[2023-09-18 06:36] LABS: BASOPHILS % (AUTO) 0.8 % (0-1); EOSINOPHILS # (AUTO) 0.1 X10'3 (0-0.9); EOSINOPHILS % (AUTO) 1.9 % (0-6); HEMATOCRIT 36.2 % (35.0-45.0); HEMOGLOBIN 11.8 g/dl (12.0-16.0); LYMPHOCYTES # (AUTO) 1.6 X10'3 (1.1-4.8); LYMPHOCYTES % (AUTO) 35.2 % (21-51); MEAN CORPUSCULAR HEMOGLOBIN 29.1 PG (27.0-31.0); MEAN CORPUSCULAR HGB CONC 32.7 g/dL (33.0-36.5); MEAN CORPUSCULAR VOLUME 89.1 FL (78-98); MEAN PLATELET VOLUME 9.1 FL (7.4-10.4); MONOCYTES # (AUTO) 0.4 X10'3 (0-0.9); MONOCYTES % (AUTO) 7.8 % (2-12); NEUTROPHILS # (AUTO) 2.5 X10'3 (1.8-7.7); NEUTROPHILS % (AUTO) 54.3 % (42-75); PLATELET COUNT 180 X10'3 (140-440); RED BLOOD COUNT 4.06 X10'6 (4.20-5.60); RED CELL DISTRIBUTION WIDTH 15.1 % (11.5-14.5); WHITE BLOOD COUNT 4.6 X10'3 (4.5-11.0)
[2023-09-18 07:00] VITALS: RESP 14; O2SAT 97
[2023-09-18 08:00] VITALS: BP 95/64; PULSE 89; RESP 14; TEMP 98.7; O2SAT 97
[2023-09-18] MEDS: K and/or MAG REPLACEMENT MC SCH ×2 (08:00→20:00)
[2023-09-18] MEDS: FLUoxetine 20mg capsule PO SCH ×2 (08:28→20:55)
[2023-09-18] MEDS: pantoprazole 40mg Tablet.DR PO SCH (08:28)
[2023-09-18] MEDS: gabapentin 300mg capsule PO SCH ×3 (08:28→20:55)
[2023-09-18] MEDS: tizanidine 4mg tablet PO SCH ×3 (08:28→20:55)
[2023-09-18] MEDS: docusate sod 100mg capsule PO SCH ×2 (08:28→20:00)
[2023-09-18] MEDS: BUPRENORPHINE HCL 2 MG SL SCH (08:29)
[2023-09-18] MEDS ORDERED: magnesium citrate 296ml oral solution PO ONE (13:35)
[2023-09-18] MEDS: LORazepam 1 MG tablet PO PRN (13:48)
[2023-09-18] MEDS ORDERED: buprenorphine/naloxone 2-0.5mg sublingual tablet SL SCH (16:00)
[2023-09-18] MEDS ORDERED: ketorolac tromethamine 15mg/ml inj. IM ONE (18:55)
[2023-09-18 19:00] VITALS: RESP 14; O2SAT 97
[2023-09-18 20:00] VITALS: BP 94/67; PULSE 107; RESP 14; TEMP 97.7; O2SAT 97
[2023-09-18] MEDS: traZODone 150mg tablet PO SCH (20:55)
[2023-09-18] MEDS ORDERED: clozapine 100mg tablet PO SCH (21:00)
[2023-09-18] MEDS: buprenorphine/naloxone 2-0.5mg sublingual tablet SL SCH (22:29)
[2023-09-19] MEDS: gabapentin 300mg capsule PO SCH ×2 (07:10→13:37)
[2023-09-19] MEDS: pantoprazole 40mg Tablet.DR PO SCH (07:10)
[2023-09-19] MEDS: docusate sod 100mg capsule PO SCH (07:10)
[2023-09-19] MEDS: tizanidine 4mg tablet PO SCH ×2 (07:10→13:37)
[2023-09-19] MEDS: buprenorphine/naloxone 2-0.5mg sublingual tablet SL SCH ×2 (07:11→13:36)
[2023-09-19] MEDS: FLUoxetine 20mg capsule PO SCH (07:11)
[2023-09-19] MEDS: K and/or MAG REPLACEMENT MC SCH (07:14)
[2023-09-19 08:07] VITALS: BP 103/68; PULSE 90; RESP 16; TEMP 98; O2SAT 99
[2023-09-19 08:13] LABS: BASOPHILS % (AUTO) 0.7 % (0-1); EOSINOPHILS # (AUTO) 0.1 X10'3 (0-0.9); EOSINOPHILS % (AUTO) 1.9 % (0-6); HEMATOCRIT 37.2 % (35.0-45.0); HEMOGLOBIN 12.1 g/dl (12.0-16.0); LYMPHOCYTES # (AUTO) 1.4 X10'3 (1.1-4.8); LYMPHOCYTES % (AUTO) 29.5 % (21-51); MEAN CORPUSCULAR HGB CONC 32.5 g/dL (33.0-36.5); MEAN CORPUSCULAR VOLUME 89.2 FL (78-98); MEAN PLATELET VOLUME 9.6 FL (7.4-10.4); MONOCYTES # (AUTO) 0.4 X10'3 (0-0.9); MONOCYTES % (AUTO) 7.7 % (2-12); NEUTROPHILS # (AUTO) 2.8 X10'3 (1.8-7.7); NEUTROPHILS % (AUTO) 60.2 % (42-75); PLATELET COUNT 208 X10'3 (140-440); RED BLOOD COUNT 4.17 X10'6 (4.20-5.60); WHITE BLOOD COUNT 4.7 X10'3 (4.5-11.0)
[2023-09-19] MEDS: LORazepam 1 MG tablet PO PRN (09:49)
[2023-09-19] MEDS: acetaminophen 325mg tablet PO PRN (13:37)
[2023-09-19] MEDS ORDERED: CLOZ100T13 PO (16:56)
== END 2023-09-19 17:41 | disposition home or self-care (01) | DRG 885 ==
LOC: ER 23:32 → ADULT MH 09-15 16:15
PROVIDERS: ADMIT Psychiatry & Neurology Psychiatry; ATTEND Psychiatry & Neurology Psychiatry
DX: F20.9 Schizophrenia, unspecified (principal); R45.851 Suicidal ideations; M41.9 Scoliosis, unspecified; Z20.822 Contact with and (suspected) exposure to COVID-19; E87.6 Hypokalemia; F10.10 Alcohol abuse, uncomplicated; D72.819 Decreased white blood cell count, unspecified; F32.A Depression, unspecified; K21.9 Gastro-esophageal reflux disease without esophagitis; G47.00 Insomnia, unspecified; E88.09 Other disorders of plasma-protein metabolism, not elsewhere classified; N18.2 Chronic kidney disease, stage 2 (mild); K59.00 Constipation, unspecified; Z79.899 Other long term (current) drug therapy; Z87.891 Personal history of nicotine dependence; Z90.710 Acquired absence of both cervix and uterus; Z90.722 Acquired absence of ovaries, bilateral; Z90.49 Acquired absence of other specified parts of digestive tract
CPT/HCPCS: 36415; 80053; 80061; 80305; 80329; 81001; 81025; 84132; 85025; 86704; 86705; 87081; 87340; 87811; 99285; A6250; J1885; J7030

== ENCOUNTER 2023-10-02 21:14 | Emergency (ER) | payer MEDICARE, MEDICAID ==
[~2023-10-02] VITALS: Ht 165.1 cm; Wt 76.8 kg
[~2023-10-02 21:14] MED LIST changes: -BUSP15TA7 PO; +CLOZ100T13 PO; -FLUO-1 PO; +FLUO40CA; +GABA300C PO; -HYDR50TA65 PO; -IBUP-1985 PO; -LUMA42CA PO; -OLAN20TA3 PO; -POLY119P2 PO; +TIZA4CAP6 PO; -TOPI-253 PO; +TRAZ150T78 PO; -ZOLP12.543 PO
[2023-10-02 23:22] LABS: BILIRUBIN,URINE NEGATIVE (Neg); CLARITY,URINE SLIGHTLY CLOUDY (Clear); COLOR,URINE YELLOW (Yellow); GLUCOSE, URINE NEGATIVE (Neg); KETONES,URINE NEGATIVE (Neg); LEUKOCYTE ESTERASE ,URINE NEGATIVE (Neg); NITRITES, URINE NEGATIVE (Neg); OCCULT BLOOD,URINE SMALL (Neg); PROTEIN,URINE NEGATIVE (Neg)
[2023-10-02 23:25] LABS: URINE HCG NEGATIVE (NEG)
[2023-10-02 23:27] LABS: UA COLLECTION TYPE CLN CATCH MIDSTREAM
[2023-10-02 23:28] LABS: MUCUS STRANDS FEW /LPF (Neg); SQUAMOUS EPITHELIAL CELL,UR MANY /LPF (FEW)
[2023-10-02 23:29] LABS: BACTERIA,URINE 1+ /HPF (Neg); RBC,URINE 0-2 /HPF (0-2); WBC,URINE 0-4 /HPF (0-4)
[2023-10-02] MEDS ORDERED: ketorolac trometh inj. 60 MG/2 ML VIAL IM ONE (23:50)
[2023-10-03] VITALS: BP 130/72; PULSE 75; RESP 16; TEMP 97.9; O2SAT 98
== END 2023-10-03 00:02 | disposition home or self-care (01) ==
LOC: ER 21:15
DX: F20.9 Schizophrenia, unspecified (principal); M54.9 Dorsalgia, unspecified; G89.29 Other chronic pain; Z88.5 Allergy status to narcotic agent; Z88.8 Allergy status to other drugs, medicaments and biological substances; Z79.899 Other long term (current) drug therapy
CPT/HCPCS: 81001; 81025; 96372; 99283; J1885

== ENCOUNTER 2023-10-20 13:31 | Inpatient (IN) | payer MEDICARE, MEDICAID ==
[~2023-10-20] VITALS: Ht 165.1 cm; Wt 75.0 kg
[2023-10-20 14:07] LABS: BILIRUBIN,URINE NEGATIVE (Neg); CLARITY,URINE CLOUDY (Clear); COLOR,URINE YELLOW (Yellow); GLUCOSE, URINE NEGATIVE (Neg); KETONES,URINE NEGATIVE (Neg); LEUKOCYTE ESTERASE ,URINE NEGATIVE (Neg); NITRITES, URINE NEGATIVE (Neg); OCCULT BLOOD,URINE SMALL (Neg); PH,URINE 5.5 (4.8-8.0); PROTEIN,URINE NEGATIVE (Neg); UROBILINOGEN,URINE 0.2 E.U/dL (0.2-1.0)
[2023-10-20 14:09] LABS: URINE HCG NEGATIVE (NEG)
[2023-10-20] MEDS ORDERED: LORazepam 1 MG tablet PO ONE (14:15)
[2023-10-20 14:18] LABS: UA COLLECTION TYPE CLN CATCH MIDSTREAM
[2023-10-20 14:23] LABS: BACTERIA,URINE 2+ /HPF (Neg); MUCUS STRANDS MANY /LPF (Neg); RBC,URINE 0-2 /HPF (0-2); SQUAMOUS EPITHELIAL CELL,UR MANY /LPF (FEW); WBC,URINE 0-4 /HPF (0-4)
[2023-10-20 14:27] LABS: URINE AMPHETAMINE SCREEN NEGATIVE (Neg); URINE BARBITUATE SCREEN NEGATIVE (Neg); URINE BENZODIAZEPINES SCREEN NEGATIVE (Neg); URINE CANNABINOID SCREEN NEGATIVE (Neg); URINE COCAINE SCREEN NEGATIVE (Neg); URINE METHADONE SCREEN NEGATIVE (Neg); URINE OPIATE SCREEN NEGATIVE (Neg); URINE PHENCYCLIDINE SCREEN NEGATIVE (Neg)
[2023-10-20 14:52] LABS: BASOPHILS % (AUTO) 0.3 % (0-1); EOSINOPHILS # (AUTO) 0.1 X10'3 (0-0.9); EOSINOPHILS % (AUTO) 0.9 % (0-6); HEMATOCRIT 39.2 % (35.0-45.0); HEMOGLOBIN 12.7 g/dl (12.0-16.0); LYMPHOCYTES % (AUTO) 22.3 % (21-51); MEAN CORPUSCULAR HEMOGLOBIN 29.4 PG (27.0-31.0); MEAN CORPUSCULAR HGB CONC 32.3 g/dL (33.0-36.5); MEAN CORPUSCULAR VOLUME 90.8 FL (78-98); MEAN PLATELET VOLUME 9.7 FL (7.4-10.4); MONOCYTES # (AUTO) 0.4 X10'3 (0-0.9); MONOCYTES % (AUTO) 4.9 % (2-12); NEUTROPHILS # (AUTO) 6.5 X10'3 (1.8-7.7); NEUTROPHILS % (AUTO) 71.6 % (42-75); PLATELET COUNT 239 X10'3 (140-440); RED BLOOD COUNT 4.31 X10'6 (4.20-5.60); RED CELL DISTRIBUTION WIDTH 15.4 % (11.5-14.5)
[2023-10-20 14:59] LABS: ALANINE AMINOTRANSFERASE 10 U/L (12-78); ALBUMIN 2.9 G/DL (3.4-5.0); ALBUMIN/GLOBULIN RATIO 0.8 (1.1-1.5); ALKALINE PHOSPHATASE 116 IU/L (46-116); ANION GAP 4 (8-16); ASPARTATE AMINO TRANSFERASE 11 U/L (10-37); BILIRUBIN,TOTAL 0.2 MG/DL (0.1-1.0); BLOOD UREA NITROGEN 9 MG/DL (7-18); BUN/CREATININE RATIO 12.3 (10.0-20.0); CALCIUM 7.7 MG/DL (8.5-10.1); CHLORIDE 104 MMOL/L (99-107); CREATININE 0.73 MG/DL (0.40-0.90); GLUCOSE 111 MG/DL (70-104); POTASSIUM 3.6 MMOL/L (3.5-5.1); SODIUM 139 MMOL/L (135-145); TOTAL CARBON DIOXIDE 31.3 MMOL/L (24-32); TOTAL PROTEIN 6.6 G/DL (6.4-8.2); eCRCL 88 ML/MIN; eGFR 86 ML/MIN
[2023-10-20 15:07] LABS: ETHANOL < 10 MG/DL (<10)
[2023-10-20] MEDS ORDERED: ketorolac trometh inj. 60 MG/2 ML VIAL IM ONE (16:35)
[2023-10-20] MEDS ORDERED: CLOZ100T68 PO (22:03)
[2023-10-20] MEDS ORDERED: CLOZ50TA14 PO ×2 (22:08→22:10)
[2023-10-20] MEDS ORDERED: traZODone 150mg tablet PO SCH (23:26)
[2023-10-20] MEDS: gabapentin 300mg capsule PO SCH (23:33)
[2023-10-20] MEDS: docusate sod 100mg capsule PO SCH (23:33)
[2023-10-20] MEDS: FLUoxetine 20mg capsule PO SCH (23:58)
[2023-10-20] MEDS: tizanidine 4mg tablet PO SCH (23:58)
[2023-10-21] MEDS ORDERED: BUPRENORPHINE HCL 2 MG SL SCH
[2023-10-21] MEDS ORDERED: CLOZAPINE PO SCH ×2 (07:30→21:00)
[2023-10-21] MEDS: gabapentin 300mg capsule PO SCH ×3 (09:42→20:59)
[2023-10-21] MEDS: tizanidine 4mg tablet PO SCH ×3 (09:42→21:01)
[2023-10-21] MEDS: docusate sod 100mg capsule PO SCH ×2 (09:42→21:01)
[2023-10-21] MEDS: pantoprazole 40mg Tablet.DR PO SCH (09:42)
[2023-10-21] MEDS: FLUoxetine 20mg capsule PO SCH ×2 (09:42→21:01)
[2023-10-21] MEDS: buprenorphine/naloxone 2-0.5mg sublingual tablet SL SCH ×2 (09:54→15:23)
[2023-10-21] MEDS: clozapine 25mg tablet PO PRN (14:21)
[2023-10-21] MEDS ORDERED: ketorolac tromethamine 15mg/ml inj. IM ONE (20:35)
[2023-10-21] MEDS ORDERED: clozapine 25mg tablet PO SCH (21:00)
[2023-10-21] MEDS ORDERED: clozapine 100mg tablet PO SCH (21:00)
[2023-10-21 21:42] VITALS: BP 104/72; PULSE 75; RESP 16; TEMP 98.5; O2SAT 99
[2023-10-21] MEDS ORDERED: magnesium hydroxide 30ml (MOM) UD suspension PO PRN (22:30)
[2023-10-21] MEDS ORDERED: NICOTINE POLACRILEX 2 MG LOZENGE BC PRN (22:30)
[2023-10-21] MEDS ORDERED: loperamide 2mg capsule PO PRN (22:30)
[2023-10-21] MEDS ORDERED: mag hydrox/Alum hydrox/simeth 30ml oral suspension PO PRN (22:30)
[2023-10-21] MEDS ORDERED: hydrOXYzine 25 MG tablet PO PRN (22:45)
[2023-10-21 23:14] VITALS: RESP 16; O2SAT 99
[2023-10-21] MEDS: hydrOXYzine 25 MG tablet PO PRN (23:29)
[2023-10-21] MEDS: traZODone 150mg tablet PO SCH (23:52)
[2023-10-22] MEDS: buprenorphine/naloxone 2-0.5mg sublingual tablet SL SCH ×4 (00:32→20:04)
[2023-10-22 07:00] VITALS: RESP 16; O2SAT 98
[2023-10-22] MEDS: FLUoxetine 20mg capsule PO SCH ×2 (07:41→20:04)
[2023-10-22] MEDS: tizanidine 4mg tablet PO SCH ×3 (07:41→20:41)
[2023-10-22] MEDS: gabapentin 300mg capsule PO SCH ×3 (07:42→20:42)
[2023-10-22] MEDS: docusate sod 100mg capsule PO SCH ×2 (07:42→20:03)
[2023-10-22] MEDS: pantoprazole 40mg Tablet.DR PO SCH (07:42)
[2023-10-22 08:00] VITALS: BP 104/63; PULSE 77; RESP 16; TEMP 98.1; O2SAT 98
[2023-10-22] MEDS: nicotine 21mg patch - 24 hr TD SCH (08:00)
[2023-10-22] MEDS ORDERED: LORazepam 0.5 MG tablet PO PRN (12:15)
[2023-10-22] MEDS: clozapine 25mg tablet PO PRN (12:35)
[2023-10-22] MEDS ORDERED: ketorolac tromethamine 15mg/ml inj. IM ONE (16:50)
[2023-10-22 19:00] VITALS: RESP 16; O2SAT 97
[2023-10-22 20:00] VITALS: BP 103/61; PULSE 79; RESP 16; TEMP 97.2; O2SAT 97
[2023-10-22] MEDS: traZODone 150mg tablet PO SCH (20:41)
[2023-10-22] MEDS: clozapine 100mg tablet PO SCH (20:41)
[2023-10-22] MEDS: LORazepam 0.5 MG tablet PO PRN (20:47)
[2023-10-23] MEDS: buprenorphine/naloxone 2-0.5mg sublingual tablet SL SCH ×4 (02:10→21:09)
[2023-10-23 07:00] VITALS: RESP 16; O2SAT 96
[2023-10-23 08:00] VITALS: BP 87/57; PULSE 102; RESP 16; TEMP 98.2; O2SAT 96
[2023-10-23] MEDS: nicotine 21mg patch - 24 hr TD SCH (08:00)
[2023-10-23] MEDS: pantoprazole 40mg Tablet.DR PO SCH (08:40)
[2023-10-23] MEDS: docusate sod 100mg capsule PO SCH ×2 (08:40→21:08)
[2023-10-23] MEDS: tizanidine 4mg tablet PO SCH ×3 (08:41→21:10)
[2023-10-23] MEDS: FLUoxetine 20mg capsule PO SCH ×2 (08:41→21:09)
[2023-10-23] MEDS: gabapentin 300mg capsule PO SCH ×3 (08:41→21:10)
[2023-10-23] MEDS: aspirin 81mg tab.chew PO SCH (08:42)
[2023-10-23] MEDS: LORazepam 0.5 MG tablet PO PRN ×3 (09:01→21:43)
[2023-10-23] MEDS: buPROPion SR 150mg tablet PO SCH (13:29)
[2023-10-23 13:31] LABS: CHOLESTEROL 140 MG/DL (0-200); HDL CHOLESTEROL 71 MG/DL (35-60); HEMOGLOBIN A1C 5.1 % (4.5-6.2); LDL CHOLESTEROL 34 MG/DL (50-100); TRIGLYCERIDES 103 MG/DL (20-135)
[2023-10-23 19:00] VITALS: RESP 14; O2SAT 98
[2023-10-23 20:00] VITALS: BP 100/60; PULSE 89; RESP 14; TEMP 98.6; O2SAT 98
[2023-10-23] MEDS: polyethylene glycol 3350 17gm powd pack PO SCH (21:07)
[2023-10-23] MEDS: traZODone 150mg tablet PO SCH (21:08)
[2023-10-23] MEDS: clozapine 100mg tablet PO SCH (21:09)
[2023-10-24] MEDS: buprenorphine/naloxone 2-0.5mg sublingual tablet SL SCH ×4 (01:13→20:51)
[2023-10-24] MEDS: hydrOXYzine 25 MG tablet PO PRN (01:13)
[2023-10-24 07:00] VITALS: RESP 14; O2SAT 97
[2023-10-24] MEDS: nicotine 21mg patch - 24 hr TD SCH ×2 (07:49→07:54)
[2023-10-24] MEDS: docusate sod 100mg capsule PO SCH ×2 (07:50→20:50)
[2023-10-24] MEDS: aspirin 81mg tab.chew PO SCH (07:50)
[2023-10-24] MEDS: tizanidine 4mg tablet PO SCH ×3 (07:50→20:51)
[2023-10-24] MEDS: LORazepam 0.5 MG tablet PO PRN ×2 (07:50→16:31)
[2023-10-24] MEDS: FLUoxetine 20mg capsule PO SCH ×2 (07:50→20:50)
[2023-10-24] MEDS: gabapentin 300mg capsule PO SCH ×3 (07:50→20:51)
[2023-10-24] MEDS: buPROPion SR 150mg tablet PO SCH ×2 (07:50→13:31)
[2023-10-24] MEDS: pantoprazole 40mg Tablet.DR PO SCH (07:50)
[2023-10-24 08:00] VITALS: BP 100/62; PULSE 93; RESP 14; TEMP 97.7; O2SAT 97
[2023-10-24 19:45] VITALS: RESP 16; O2SAT 98
[2023-10-24 20:00] VITALS: BP 106/58; PULSE 92; RESP 16; TEMP 97.9; O2SAT 98
[2023-10-24] MEDS: clozapine 100mg tablet PO SCH (20:51)
[2023-10-24] MEDS: polyethylene glycol 3350 17gm powd pack PO SCH (20:51)
[2023-10-24] MEDS: traZODone 150mg tablet PO SCH (20:51)
[2023-10-25 00:03] VITALS: RESP 16; O2SAT 98
[2023-10-25] MEDS: buprenorphine/naloxone 2-0.5mg sublingual tablet SL SCH ×4 (01:51→20:19)
[2023-10-25] MEDS: LORazepam 0.5 MG tablet PO PRN ×4 (01:51→21:49)
[2023-10-25 07:00] VITALS: RESP 16; O2SAT 96
[2023-10-25] MEDS: aspirin 81mg tab.chew PO SCH (07:43)
[2023-10-25] MEDS: FLUoxetine 20mg capsule PO SCH ×2 (07:43→20:20)
[2023-10-25] MEDS: pantoprazole 40mg Tablet.DR PO SCH (07:43)
[2023-10-25] MEDS: docusate sod 100mg capsule PO SCH ×2 (07:43→20:20)
[2023-10-25] MEDS: nicotine 21mg patch - 24 hr TD SCH (07:43)
[2023-10-25] MEDS: tizanidine 4mg tablet PO SCH ×3 (07:43→20:20)
[2023-10-25] MEDS: buPROPion SR 150mg tablet PO SCH ×2 (07:43→13:09)
[2023-10-25] MEDS: gabapentin 300mg capsule PO SCH ×3 (07:43→20:19)
[2023-10-25 08:00] VITALS: BP 93/63; PULSE 98; RESP 16; TEMP 98.3; O2SAT 96
[2023-10-25 19:37] VITALS: RESP 16; O2SAT 100
[2023-10-25 19:42] VITALS: BP 111/73; PULSE 82; RESP 16; TEMP 97; O2SAT 100
[2023-10-25 20:13] LABS: HBSAG SCREEN Negative (Negative); HEP B CORE AB, IGM Negative (Negative); HEP B CORE AB, TOT Negative (Negative); HEPATITIS C VIRUS ANTIBODY Non Reactive (Non Reactive)
[2023-10-25] MEDS: clozapine 100mg tablet PO SCH (20:19)
[2023-10-25] MEDS: hydrOXYzine 25 MG tablet PO PRN (20:19)
[2023-10-25] MEDS: polyethylene glycol 3350 17gm powd pack PO SCH (20:19)
[2023-10-25] MEDS: traZODone 150mg tablet PO SCH (20:20)
[2023-10-26] MEDS: buprenorphine/naloxone 2-0.5mg sublingual tablet SL SCH ×4 (01:02→21:14)
[2023-10-26 07:00] VITALS: RESP 16; O2SAT 95
[2023-10-26] MEDS: pantoprazole 40mg Tablet.DR PO SCH (07:09)
[2023-10-26] MEDS: tizanidine 4mg tablet PO SCH ×3 (07:09→21:14)
[2023-10-26] MEDS: gabapentin 300mg capsule PO SCH ×3 (07:09→21:14)
[2023-10-26] MEDS: FLUoxetine 20mg capsule PO SCH ×2 (07:09→21:15)
[2023-10-26] MEDS: docusate sod 100mg capsule PO SCH ×2 (07:09→21:15)
[2023-10-26] MEDS: buPROPion SR 150mg tablet PO SCH ×2 (07:09→13:30)
[2023-10-26] MEDS: nicotine 21mg patch - 24 hr TD SCH (07:10)
[2023-10-26] MEDS: aspirin 81mg tab.chew PO SCH (07:47)
[2023-10-26 08:00] VITALS: BP 97/63; PULSE 87; RESP 16; TEMP 97.6; O2SAT 95
[2023-10-26] MEDS: LORazepam 0.5 MG tablet PO PRN ×2 (09:04→21:15)
[2023-10-26] MEDS ORDERED: ketorolac trometh inj. 60 MG/2 ML VIAL IM ONE (15:30)
[2023-10-26 19:00] VITALS: BP 99/54; PULSE 88; RESP 16; TEMP 97.1; O2SAT 98
[2023-10-26] MEDS: polyethylene glycol 3350 17gm powd pack PO SCH (21:14)
[2023-10-26] MEDS: clozapine 100mg tablet PO SCH (21:14)
[2023-10-26] MEDS: traZODone 150mg tablet PO SCH (21:14)
[2023-10-27] MEDS: buprenorphine/naloxone 2-0.5mg sublingual tablet SL SCH ×3 (02:48→13:26)
[2023-10-27 07:00] VITALS: RESP 16; O2SAT 97
[2023-10-27] MEDS: pantoprazole 40mg Tablet.DR PO SCH (07:44)
[2023-10-27] MEDS: FLUoxetine 20mg capsule PO SCH (07:44)
[2023-10-27] MEDS: gabapentin 300mg capsule PO SCH ×2 (07:44→13:26)
[2023-10-27] MEDS: docusate sod 100mg capsule PO SCH (07:44)
[2023-10-27] MEDS: buPROPion SR 150mg tablet PO SCH ×2 (07:44→13:25)
[2023-10-27] MEDS: tizanidine 4mg tablet PO SCH ×2 (07:44→13:26)
[2023-10-27] MEDS: aspirin 81mg tab.chew PO SCH (07:44)
[2023-10-27] MEDS: nicotine 21mg patch - 24 hr TD SCH (07:49)
[2023-10-27 08:00] VITALS: BP 104/66; PULSE 86; RESP 16; TEMP 98.1; O2SAT 97
[2023-10-27] MEDS: LORazepam 0.5 MG tablet PO PRN ×2 (09:32→15:39)
[2023-10-27] MEDS ORDERED: CLOZ25TA12 PO (14:53)
[2023-10-27] MEDS ORDERED: HYDR-3686 PO (14:53)
[2023-10-27] MEDS ORDERED: NICO-907 BC (14:53)
== END 2023-10-27 16:12 | disposition home or self-care (01) | DRG 885 ==
LOC: ER 13:32 → ADULT MH 10-21 17:00
PROVIDERS: ADMIT Psychiatry & Neurology Psychiatry; ATTEND Psychiatry & Neurology Psychiatry
PROC: GZHZZZZ Group Psychotherapy (ICD-10-PCS; principal; 2023-10-22)
PROC: GZ51ZZZ Individual Psychotherapy, Behavioral (ICD-10-PCS; 2023-10-22)
DX: F20.9 Schizophrenia, unspecified (principal); R45.851 Suicidal ideations; F41.9 Anxiety disorder, unspecified; F32.A Depression, unspecified; B00.9 Herpesviral infection, unspecified; F19.90 Other psychoactive substance use, unspecified, uncomplicated; I48.91 Unspecified atrial fibrillation; M54.9 Dorsalgia, unspecified; K59.00 Constipation, unspecified; Z20.822 Contact with and (suspected) exposure to COVID-19; K21.9 Gastro-esophageal reflux disease without esophagitis; F10.10 Alcohol abuse, uncomplicated; G89.29 Other chronic pain; Z88.8 Allergy status to other drugs, medicaments and biological substances; Z88.5 Allergy status to narcotic agent; Z79.899 Other long term (current) drug therapy; Z90.49 Acquired absence of other specified parts of digestive tract; Z90.710 Acquired absence of both cervix and uterus; Z87.891 Personal history of nicotine dependence; Z80.3 Family history of malignant neoplasm of breast
CPT/HCPCS: 36415; 80053; 80061; 80305; 80320; 81001; 81025; 83036; 85025; 86704; 86705; 86803; 87081; 87340; 87522; 87811; 99285; J1885; Q0177

== ENCOUNTER 2023-11-11 17:31 | Emergency (ER) | payer MEDICARE, MEDICAID ==
[~2023-11-11] VITALS: Ht 165.1 cm; Wt 78.4 kg
[~2023-11-11 17:31] MED LIST changes: -CLOZ100T13 PO; +CLOZ25TA12 PO; +CLOZ50TA14 PO; +HYDR-3686 PO; +NICO-907 BC
[2023-11-11 18:08] LABS: URINE HCG NEGATIVE (NEG)
[2023-11-11 18:09] LABS: BILIRUBIN,URINE NEGATIVE (Neg); CLARITY,URINE CLEAR (Clear); COLOR,URINE YELLOW (Yellow); GLUCOSE, URINE NEGATIVE (Neg); KETONES,URINE NEGATIVE (Neg); LEUKOCYTE ESTERASE ,URINE NEGATIVE (Neg); NITRITES, URINE NEGATIVE (Neg); OCCULT BLOOD,URINE TRACE-INTACT (Neg); PROTEIN,URINE NEGATIVE (Neg); UROBILINOGEN,URINE 0.2 E.U/dL (0.2-1.0)
[2023-11-11 18:12] LABS: BASOPHILS # (AUTO) 0.1 X10'3 (0-0.2); BASOPHILS % (AUTO) 0.4 % (0-1); EOSINOPHILS # (AUTO) 0.1 X10'3 (0-0.9); HEMATOCRIT 37.6 % (35.0-45.0); HEMOGLOBIN 11.9 g/dl (12.0-16.0); LYMPHOCYTES # (AUTO) 2.1 X10'3 (1.1-4.8); LYMPHOCYTES % (AUTO) 18.3 % (21-51); MEAN CORPUSCULAR HEMOGLOBIN 28.8 PG (27.0-31.0); MEAN CORPUSCULAR HGB CONC 31.6 g/dL (33.0-36.5); MEAN CORPUSCULAR VOLUME 91.2 FL (78-98); MEAN PLATELET VOLUME 9.4 FL (7.4-10.4); MONOCYTES # (AUTO) 0.8 X10'3 (0-0.9); MONOCYTES % (AUTO) 6.5 % (2-12); NEUTROPHILS # (AUTO) 8.5 X10'3 (1.8-7.7); NEUTROPHILS % (AUTO) 73.8 % (42-75); PLATELET COUNT 226 X10'3 (140-440); RED BLOOD COUNT 4.12 X10'6 (4.20-5.60); RED CELL DISTRIBUTION WIDTH 15.1 % (11.5-14.5); WHITE BLOOD COUNT 11.6 X10'3 (4.5-11.0)
[2023-11-11 18:21] LABS: UA COLLECTION TYPE CLN CATCH MIDSTREAM
[2023-11-11 18:22] LABS: SQUAMOUS EPITHELIAL CELL,UR MANY /LPF (FEW)
[2023-11-11 18:23] LABS: MUCUS STRANDS MANY /LPF (Neg)
[2023-11-11 18:24] LABS: BACTERIA,URINE 1+ /HPF (Neg); RBC,URINE 0-2 /HPF (0-2); WBC,URINE 0-4 /HPF (0-4)
[2023-11-11 18:38] LABS: URINE AMPHETAMINE SCREEN NEGATIVE (Neg); URINE BARBITUATE SCREEN NEGATIVE (Neg); URINE BENZODIAZEPINES SCREEN NEGATIVE (Neg); URINE CANNABINOID SCREEN NEGATIVE (Neg); URINE COCAINE SCREEN NEGATIVE (Neg); URINE METHADONE SCREEN NEGATIVE (Neg); URINE OPIATE SCREEN NEGATIVE (Neg); URINE PHENCYCLIDINE SCREEN NEGATIVE (Neg)
[2023-11-11 18:43] LABS: ANION GAP 6 (8-16); BLOOD UREA NITROGEN 16 MG/DL (7-18); BUN/CREATININE RATIO 22.2 (10.0-20.0); CALCIUM 8.1 MG/DL (8.5-10.1); CHLORIDE 107 MMOL/L (99-107); CREATININE 0.72 MG/DL (0.40-0.90); GLUCOSE 79 MG/DL (70-104); SODIUM 140 MMOL/L (135-145); TOTAL CARBON DIOXIDE 27.1 MMOL/L (24-32); eCRCL 89 ML/MIN; eGFR 88 ML/MIN
[2023-11-11 18:52] LABS: ETHANOL < 10 MG/DL (<10)
[2023-11-11] MEDS ORDERED: CLOZ100T21 PO (20:15)
[2023-11-11] MEDS ORDERED: CLOZ25TA52 PO (20:49)
[2023-11-11] MEDS ORDERED: FLUO40CA26 PO (20:58)
[2023-11-11] MEDS ORDERED: OMEP40CA21 PO (21:18)
[2023-11-11] MEDS ORDERED: LORA-269 PO (21:25)
[2023-11-11] MEDS: LORazepam 1 MG tablet PO PRN (22:51)
[2023-11-11] MEDS: traZODone 150mg tablet PO SCH (22:51)
[2023-11-11] MEDS: clozapine 100mg tablet PO SCH (23:26)
[2023-11-12] MEDS ORDERED: BUPRENORPHINE HCL 2 MG SL SCH
[2023-11-12] MEDS ORDERED: Melatonin 3mg tablet PO ONE (01:25)
[2023-11-12] MEDS: Melatonin 3mg tablet PO ONE (01:32)
[2023-11-12] MEDS: pantoprazole 40mg Tablet.DR PO SCH (08:21)
[2023-11-12] MEDS: docusate sod 100mg capsule PO SCH (08:21)
[2023-11-12] MEDS: tizanidine 4mg tablet PO SCH (08:21)
[2023-11-12] MEDS: gabapentin 300mg capsule PO SCH (08:21)
[2023-11-12] MEDS: clozapine 25mg tablet PO SCH ×2 (08:21)
[2023-11-12] MEDS: FLUoxetine 20mg capsule PO SCH (08:21)
[2023-11-12] MEDS ORDERED: buprenorphine/naloxone 8MG-2MG SUBlingual film SL SCH (17:15)
[2023-11-12] MEDS ORDERED: buprenorphine/naloxone 2-0.5mg sublingual tablet SL SCH (17:27)
[2023-11-12] MEDS: hydrOXYzine 25 MG tablet PO ONE (17:45)
[2023-11-12] MEDS: buprenorphine/naloxone 2-0.5mg sublingual tablet SL SCH ×2 (17:46)
[2023-11-13 06:16] VITALS: BP 101/65; PULSE 99; TEMP 97.6; O2SAT 96
[2023-11-13 08:11] VITALS: RESP 16
[2023-11-13] MEDS: ketorolac trometh inj. 60 MG/2 ML VIAL IM ONE (08:11)
== END 2023-11-13 09:35 ==
LOC: ER 17:32
DX: R45.851 Suicidal ideations (principal); R44.0 Auditory hallucinations; F41.9 Anxiety disorder, unspecified; F32.A Depression, unspecified; Z20.822 Contact with and (suspected) exposure to COVID-19; Z79.891 Long term (current) use of opiate analgesic; Z88.8 Allergy status to other drugs, medicaments and biological substances; Z79.899 Other long term (current) drug therapy; Z72.89 Other problems related to lifestyle
CPT/HCPCS: 36415; 80048; 80305; 80320; 81001; 81025; 84443; 85025; 87811; 96372; 99284; J1885; Q0177

== ENCOUNTER 2023-12-08 00:19 | Emergency (ER) | payer MEDICARE, MEDICAID ==
[~2023-12-08] VITALS: Ht 160 cm; Wt 76.8 kg
[~2023-12-08 00:19] MED LIST changes: +CLOZ100T21 PO; -CLOZ25TA12 PO; +CLOZ25TA52 PO; -FLUO40CA; +FLUO40CA26 PO; -HYDR-3686 PO; +LORA-269 PO; -NICO-907 BC; -OMEP20CA16 PO; +OMEP40CA21 PO
[2023-12-08 00:44] VITALS: TEMP 98.7
[2023-12-08 01:12] LABS: BASOPHILS # (AUTO) 0.1 X10'3 (0-0.2); BASOPHILS % (AUTO) 0.9 % (0-1); EOSINOPHILS # (AUTO) 0.3 X10'3 (0-0.9); EOSINOPHILS % (AUTO) 3.7 % (0-6); HEMATOCRIT 39.5 % (35.0-45.0); HEMOGLOBIN 12.6 g/dl (12.0-16.0); LYMPHOCYTES # (AUTO) 2.2 X10'3 (1.1-4.8); LYMPHOCYTES % (AUTO) 29.6 % (21-51); MEAN CORPUSCULAR HEMOGLOBIN 29.2 PG (27.0-31.0); MEAN CORPUSCULAR HGB CONC 31.8 g/dL (33.0-36.5); MEAN PLATELET VOLUME 9.2 FL (7.4-10.4); MONOCYTES # (AUTO) 0.5 X10'3 (0-0.9); MONOCYTES % (AUTO) 7.4 % (2-12); NEUTROPHILS # (AUTO) 4.3 X10'3 (1.8-7.7); NEUTROPHILS % (AUTO) 58.4 % (42-75); PLATELET COUNT 274 X10'3 (140-440); RED BLOOD COUNT 4.29 X10'6 (4.20-5.60); RED CELL DISTRIBUTION WIDTH 14.6 % (11.5-14.5); WHITE BLOOD COUNT 7.4 X10'3 (4.5-11.0)
[2023-12-08 01:23] LABS: ALANINE AMINOTRANSFERASE 15 U/L (12-78); ALBUMIN 3.2 G/DL (3.4-5.0); ALBUMIN/GLOBULIN RATIO 0.9 (1.1-1.5); ALKALINE PHOSPHATASE 138 IU/L (46-116); ANION GAP 6 (8-16); ASPARTATE AMINO TRANSFERASE 19 U/L (10-37); BILIRUBIN,TOTAL 0.3 MG/DL (0.1-1.0); BLOOD UREA NITROGEN 15 MG/DL (7-18); BUN/CREATININE RATIO 18.3 (10.0-20.0); CALCIUM 8.4 MG/DL (8.5-10.1); CHLORIDE 105 MMOL/L (99-107); CREATININE 0.82 MG/DL (0.40-0.90); GLUCOSE 101 MG/DL (70-104); LIPASE 17 U/L (16-77); POTASSIUM 3.8 MMOL/L (3.5-5.1); SODIUM 140 MMOL/L (135-145); TOTAL CARBON DIOXIDE 28.9 MMOL/L (24-32); TOTAL PROTEIN 6.8 G/DL (6.4-8.2); eCRCL 72 ML/MIN; eGFR 75 ML/MIN
[2023-12-08] MEDS: ketorolac trometh inj. 60 MG/2 ML VIAL IM ONE (04:20)
[2023-12-08 04:23] VITALS: BP 107/75; PULSE 100; RESP 15; O2SAT 98
== END 2023-12-08 04:25 | disposition home or self-care (01) ==
LOC: ER 00:20
DX: R10.32 Left lower quadrant pain (principal); I48.91 Unspecified atrial fibrillation; F32.9 Major depressive disorder, single episode, unspecified; F41.9 Anxiety disorder, unspecified; F20.9 Schizophrenia, unspecified; Z90.49 Acquired absence of other specified parts of digestive tract; Z90.710 Acquired absence of both cervix and uterus; Z88.8 Allergy status to other drugs, medicaments and biological substances
CPT/HCPCS: 36415; 80053; 83690; 85025; 96372; 99283; J1885

== ENCOUNTER 2025-01-17 07:22 | Day surgery (SDC) | payer MEDICARE, MEDICAID ==
[2025-01-15 10:22] LABS: BASOPHILS % (AUTO) 0.7 % (0-1); EOSINOPHILS # (AUTO) 0.1 X10'3 (0-0.9); EOSINOPHILS % (AUTO) 1.9 % (0-6); LYMPHOCYTES # (AUTO) 1.2 X10'3 (1.1-4.8); LYMPHOCYTES % (AUTO) 17.3 % (21-51); MEAN CORPUSCULAR HEMOGLOBIN 29.9 PG (27.0-31.0); MEAN CORPUSCULAR VOLUME 90.5 FL (78-98); MEAN PLATELET VOLUME 9.2 FL (7.4-10.4); MONOCYTES # (AUTO) 0.5 X10'3 (0-0.9); MONOCYTES % (AUTO) 7.1 % (2-12); NEUTROPHILS # (AUTO) 4.9 X10'3 (1.8-7.7); PRE OP HEMATOCRIT 37.2 % (35.0-45.0); PRE OP HEMOGLOBIN 12.3 g/dL (12.0-16.0); PRE OP PLATELET COUNT 215 X10'3 (140-440); PRE OP WHITE BLOOD COUNT 6.8 10'3 (4.8-10.8); RED BLOOD COUNT 4.11 X10'6 (4.20-5.60); RED CELL DISTRIBUTION WIDTH 14.5 % (11.5-14.5)
[2025-01-15 10:35] LABS: ALBUMIN 3.2 G/DL (3.4-5.0); ALKALINE PHOSPHATASE 85 IU/L (46-116); BLOOD UREA NITROGEN 11 MG/DL (7-18); BUN/CREATININE RATIO 16.7 (10.0-20.0); CALCIUM 8.5 MG/DL (8.5-10.1); CHLORIDE 107 MMOL/L (99-107); CREATININE 0.66 MG/DL (0.40-0.90); PRE OP ALT 30 U/L (30-65); PRE OP ANION GAP 1 (8-16); PRE OP AST 21 U/L (10-37); PRE OP BILIRUB, TOTAL 0.4 MG/DL (0.0-1.0); PRE OP GLUCOSE 86 MG/DL (70-104); PRE OP SODIUM 141 MMOL/L (135-145); TOTAL CARBON DIOXIDE 33.1 MMOL/L (24-32); TOTAL PROTEIN 6.4 G/DL (6.4-8.2); eGFR > 90 ML/MIN
[~2025-01-17] VITALS: Ht 160 cm; Wt 80.7 kg
[2025-01-17] VITALS (11 sets, daily range): BP systolic 19–123; BP diastolic 65–75; PULSE 53–68; RESP 13–16; TEMP 98.2; O2SAT 94–99
[~2025-01-17 07:22] MED LIST changes: +ACET-1025 PO; +ASCO1TAB42; +BUPIVAcaine 2.5mg/ml inj 50ml vial (contains preservative) ONE; +CALCIUM; +CARI3CAP PO; -CLOZ100T21 PO; -CLOZ25TA52 PO; -CLOZ50TA14 PO; +COLLAGEN; +LIDOcaine 1% 30ml preserv. free vial ONE; +LUMA42CA PO; +OLAN2.5T3 PO; +OLAN20TA81 PO; +PROBIOTIC; -TRAZ150T78 PO; +VIT B12; +VIT D3
[2025-01-17] MEDS: ceFAZolin 2gm in dextrose, iso 50 ML IV ONE (08:17)
[2025-01-17] MEDS: famotidine 20mg tablet PO ONE (08:17)
[2025-01-17] MEDS: ringers solution, lacted 1,000 ML IV SCH (08:17)
[2025-01-17] MEDS ORDERED: sevoflurane 250ml liquid IH ONE (09:22)
[2025-01-17] MEDS ORDERED: midazolam 1 mg/ML 2ml injection ONE (09:27)
[2025-01-17] MEDS ORDERED: labetalol 20mg/4ml (5mg/ml) syringe IV PRN (09:45)
[2025-01-17] MEDS ORDERED: ondansetron/PF 4mg/2ml inj IV PRN (09:45)
[2025-01-17] MEDS ORDERED: ringers solution, lacted 1,000 ML IV SCH (09:45)
[2025-01-17] MEDS ORDERED: hydrALAZINE 20mg/ml inj. IV PRN (09:45)
[2025-01-17] MEDS ORDERED: fentaNYL/PF 50MCG/1 ML 2ML syringe IV PRN (09:45)
[2025-01-17] MEDS ORDERED: propofol inj 20 ML IV ONE (10:04)
[2025-01-17] MEDS ORDERED: rocuronium 10mg/ml inj IV ONE (10:04)
[2025-01-17] MEDS ORDERED: fentaNYL /PF 50mcg/ml 5ml ampule ONE (10:04)
[2025-01-17] MEDS ORDERED: ondansetron/PF 4mg/2ml inj ONE (10:05)
[2025-01-17] MEDS ORDERED: LIDOcaine 2% (20mg/ml) 5ml vial ONE (10:05)
[2025-01-17] MEDS ORDERED: dexamethasone sod phosphate 4mg/ml inj. ONE (10:05)
[2025-01-17] MEDS: BUPIVAcaine/PF 2.5 mg/ml (0.25%) 30ml vial IJ ONE (10:12)
[2025-01-17] MEDS ORDERED: glycopyrrolate 0.2mg/ml inj ONE (10:22)
[2025-01-17] MEDS ORDERED: neostigmine methylsulfate 1 MG/ML 10ml vial ONE (10:23)
[2025-01-17] MEDS: fentaNYL/PF 50MCG/1 ML 2ML syringe IV PRN (10:59)
[2025-01-17] MEDS: acetaminophen 1,000mg/100ml IV 100 ML IV PRN (10:59)
[2025-01-17] MEDS ORDERED: HYDROcodone/acetaminophen 5mg/325mg tablet PO PRN (11:00)
== END 2025-01-17 11:54 | disposition home or self-care (01) ==
LOC: PAS 07:22
PROVIDERS: ATTEND Surgery
DX: K40.90 Unilateral inguinal hernia, without obstruction or gangrene, not specified as recurrent (principal); F41.8 Other specified anxiety disorders; K21.9 Gastro-esophageal reflux disease without esophagitis; F20.9 Schizophrenia, unspecified; Z90.710 Acquired absence of both cervix and uterus; Z98.890 Other specified postprocedural states; Z90.49 Acquired absence of other specified parts of digestive tract; Z91.040 Latex allergy status; Z79.899 Other long term (current) drug therapy
CPT/HCPCS: 36415; 49650; 80053; 82948; 85025; 93005; A4215; A4618; C1781; J0131; J0690; J1100; J2003; J2250; J2405; J2704; J2710; J3010; J3490; J7030; J7120; Z7506; Z7508; Z7512; Z7610